=== PATIENT | female | born 1955 | race Caucasian/White ===

== ENCOUNTER 2019-09-15 15:06 | Inpatient (IN) | payer MEDICARE ==
[2019-09-15] MEDS ORDERED: NS 0.9% 1000 ML** 2,000 ML IV ONE ×2 (15:18→16:50)
--- NOTE | 2019-09-15 15:20 | ED ---
Altered Mental Status - HPI Summary HPI Summary: The patient is a 64 y/o F arriving by ambulance to [facility] from home with a chief complaint of decreased responsiveness with altered mental status. EMS reports that the patients neighbor found her sitting on the toilet covered in feces. When asked, the patient states she had been sitting there for 30 minutes, but her skin is cool to touch. She denies any headache or abdominal pain. She is minimally responsive in the ED. PMHx: hypothyroidism, sleep apnea, asthma. Unknown social history. Medications reviewed. Allergies noted. History is limited as patient has altered mental status. Information obtained from EMS and medical records. - History Of Current Complaint Stated Complaint: UNRESPONSIVE Time Seen by Provider: 09/15/19 15:12 Hx Obtained From: EMS, Medical Records Hx From Patient Unobtainable Due To: Altered Mental Status - Level 5 Caveat Onset/Duration: Unknown, Still Present Character: Responsiveness Aggravating Factor(s): Unknown Alleviating Factor(s): Unknown - Allergies/Home Medications Allergies/Adverse Reactions: Allergies Allergy/AdvReac Type Severity Reaction Status Date / Time NSAIDS (Non-Steroidal Allergy Unknown Verified 09/15/19 16:55 Anti-Inflamma Reaction Details Home Medications: Home Medications Flu Vacc [id number](65Yr Up)/Pf [Fluzone High-Dose Syr] 180 mcg IM ONCE 09/15/19 [History Confirmed 09/15/19] Levalbuterol 1.25 mg/3 mL (NF) [Levalbuterol HCl] 3 ml INH TID 09/15/19 [ History Confirmed 09/15/19] Potassium Chlor TAB* [Klor Con ER TAB*] 20 meq PO DAILY 09/15/19 [History Confirmed 09/15/19] Solifenacin(NF) [Vesicare(NF)] 10 mg PO DAILY 09/15/19 [History Confirmed ] Warfarin TAB(*) [Coumadin TAB(*)] 1 mg PO DAILY 09/15/19 [History Confirmed 01/29] rOPINIRole TAB* [Requip*] 4 mg PO BEDTIME 09/15/19 [History Confirmed 09/15/19] PMH/Surg Hx/FS Hx/Imm Hx Endocrine/Hematology History: Denies: Hx Diabetes Cardiovascular History: Reports: Hx Hypertension Denies: Hx Hypercholesterolemia Respiratory History: Reports: Hx Asthma - Surgical History Surgical History: Unable to Obtain/Confirm - patient has altered mental status - Family History Known Family History: Positive: Unknown - Level 5 Caveat, patient has AMS - Social History Alcohol Amount: patient is unable to provide history as she has altered mental status Substance Use Comment - Amount & Last Used: patient is unable to provide history as she has altered mental status Smoking Status (MU): Unknown if Ever Smoked - patient is unable to provide history as she has altered mental status Review of Systems Negative: Abdominal Pain Positive: Other - cool to touch Neurological: Other - decreased responsiveness Negative: Headache All Other Systems Reviewed And Are Negative: No - Comments Additional Review of Systems Comments: Level 5 Caveat, patient is unable to provide history as she has altered mental status Physical Exam - Summary Physical Exam Summary: VITAL SIGNS: Reviewed. GENERAL: Patient is a well-developed and nourished female who is lying comfortable in the stretcher. Patient is not in any acute respiratory distress. She appears lethargic. HEAD AND FACE: No signs of trauma. No ecchymosis, hematomas or skull depressions. No sinus tenderness. EYES: PERRLA, EOMI x 2, No injected conjunctiva, no nystagmus. No photophobia. EARS: Hearing grossly intact. Ear canals and tympanic membranes are within normal limits. MOUTH: Dry oral mucosa. Oropharynx otherwise within normal limits. NECK: Supple, trachea is midline, no adenopathy, no JVD, no carotid bruit, no c- spine tenderness, neck with full ROM. No meningeal signs, no Kernig's or brudzinskis signs. CHEST: Symmetric, no tenderness at palpation. LUNGS: Clear to auscultation bilaterally. No wheezing or crackles. CVS: Regular rate and rhythm, S1 and S2 present, no murmurs or gallops appreciated. ABDOMEN: Soft, non-tender. No signs of distention. No rebound, no guarding, and no masses palpated. Bowel sounds are normal. EXTREMITIES: Mottling in the lower extremities. FROM in all major joints, no edema, no clubbing. NEURO: Alert but very confused. No acute neurological deficits. Speech is normal and follows commands. SKIN: Dry and warm. GCS: 11 (see scale). Triage Information Reviewed: Yes Vital Signs Reviewed: Yes - [place] Coma Scale Best Eye Response: 3 - To Speech Best Motor Response: 5 - Purposeful Movement Best Verbal Response: 3 - Inappropriate Words Coma Scale Total: 11 Procedures - Procedure Summary Procedure Summary: Central Line Placement Procedure note: Procedure Note: Central Venous Catheter Insertion- Right Internal Jugular Indication: Hypotension and sepsis [employer] Protocol: a timeout was performed and the correct patient and site were verified Consent: unable to obtain due to patients mental status The patient was placed in Trendelenburg. Patient and all elements of maximal sterile barrier technique (MSBT) were used. Anesthesia was obtained with local infiltration of 3 ml 1% lidocaine. Hand hygiene was performed prior to procedure. Chlorhexidine used to prep the skin and dried for 2 minutes prior to skin puncture. Traffic was limited during the procedure. Full barrier precautions utilized. Dynamic ultrasound guidance used and the right internal jugular vein was cannulated. A 7 [place] triple lumen catheter was placed using the Seldinger technique. All lines flushed and yari nonpulsatile dark venous blood appropriately. The line was secured with sutures. A biopatch and dressing was placed over the site. The patient tolerated the procedure well. A post-line CXR was reviewed demonstrating the tip of the catheter in the SVC. Post-Procedure Diagnosis: Hypotension and sepsis Complications: none Estimated Blood Loss: minimal - Sedation Patient Received Moderate/Deep Sedation with Procedure: No Diagnostics - Laboratory Result Diagrams: 09/17/19 05:40 09/17/19 05:40 Lab Statement: Any lab studies that have been ordered have been reviewed, and results considered in the medical decision making process. - Radiology Chest X-Ray Radiology Interpretation Completed By: Radiologist Summary of Radiographic Findings: Impression: Hypoventilated exam with basilar atelectasis. ED physician has reviewed this report. - CT Brain CT CT Interpretation Completed By: Radiologist Summary of CT Findings: Impression: No acute intracranial process evident. Negative unenhanced head CT. ED physician has reviewed this report. - EKG 1522 Cardiac Rate: NL - 91 BPM EKG Rhythm: Sinus Rhythm Summary of EKG Findings: EKG at 1522 reveals normal sinus rhythm at 91 BPM. Q wave in III and aVF. No ST elevations. ED physician has reviewed and interpreted this EKG. Re-Evaluation - Re-Evaluation First Eval Re-Evaluation Time: 17:00 Comment: Central line placement procedure (see note) Second Eval Re-Evaluation Time: 18:15 Comment: Patient intubated by Dr. Grider. I was at bedside. Altered Mental Statu Course/Dx - Course Assessment/Plan: This patient is a 64-year-old female who presents to the emergency room by ambulance with a chief complaint of having an unresponsive episode. In the ED course, the patient is very lethargic, and we are unable to obtain any history from the patient. Past medical history significant for depression, hypertension, hypothyroidism, COPD. Initially the patient was given 2 L of IV fluids and then the patient was placed on Zosyn. Test results without any significant abnormality except for WBCs of 23.6, absolute neutrophils of 20.9 and neutrophil bands are 21, so therefore I believe that the patient is septic. Therefore, I gave the patient another 2 L of IV fluids. Sodium of 131, potassium of 5.6, chloride of 94, BUN of 33, creatinine of 2.33, glucose of 128 , lactic acid of 4.6, total CK of 2597, troponin of 0.04, and TSH of 5.79. Urinalysis is contaminated, which could be the source of infection. Therefore, the patient will be treated with Zosyn as a broad-spectrum antibiotic. The patient will also be given cefepime. The patient became hypotensive. Therefore the patient was started on Levophed. I placed a central line without any complications. I discussed my physical exam with Dr. Grider, and he requests for the patient to be intubated. Dr. Grider accepted the patient for admission. Patient continues to be hypotensive; therefore, the patient was given vasopressin. Patient was intubated by Dr. Grider. - Diagnoses Differential Diagnosis/HQI/PQRI: Hypothermia, Hypoxia, Intracranial Bleed, Medication Reaction, Metabolic Disorder, Overdose, Sepsis, Seizure, TIA Provider Diagnoses: Unresponsive, Sepsis, Dehydration, Acute renal failure, Rhabdomyolysis, Hyperkalemia - Provider Notifications Discussed Care Of Patient With: Shravan Grider - hospitalist Time Discussed With Above Provider: 17:30 Instructed by Provider To: Other - I discussed the patient's case with Dr. Grider , and he accepts the patient for admission to the ICU. Discharge ED - Sign-Out/Discharge Documenting (check all that apply): Patient Departure - Patient accepted for admission to ICU by Dr. Grider. - Discharge Plan Condition: Stable Disposition: ADMITTED TO [facility] - Billing Disposition and Condition Condition: STABLE Disposition: Admitted to [facility] - Attestation Statements Document Initiated by Bryon: Yes Documenting Scribe: Cathi Salmon Provider For Whom Bryon is Documenting (Include Credential): Dr. Garry Huitron MD Scribe Attestation: Cathi Marquez scribed for Dr. Garry Huitron MD on 09/17/19 at 0738. Scribe Documentation Reviewed: Yes Provider Attestation: The documentation as recorded by the Cathi aguilar accurately reflects the service I personally performed and the decisions made by me, Dr. Garry Huitron MD Status of Scribe Document: Viewed
[2019-09-15 15:31] LABS: Hematocrit 38 % (35-47); Hemoglobin 12.1 g/dL (12.0-16.0); Mean Corpuscular HGB Conc 32 g/dL (31-36); Mean Corpuscular Hemoglobin 27 pg (27-31); Mean Corpuscular Volume 85 fL (80-97); Mean Platelet Volume 7.8 fL (7.4-10.4); Platelet Count 264 10^3/uL (150-450); Red Blood Count 4.51 10^6 /uL (3.70-4.87); Red Cell Distribution Width 18 % (10-15); White Blood Count 23.6 10^3/uL (3.5-10.8)
[2019-09-15 15:38] LABS: INR 2.47 (0.82-1.09)
[2019-09-15 15:49] LABS: Urine Appearance Clear; Urine Bilirubin Negative (Negative); Urine Blood 2+ (Negative); Urine Color Yellow; Urine Glucose Negative (Negative); Urine Ketones Negative (Negative); Urine Nitrite Negative (Negative); Urine Protein 2+(100 mg/dL) (Negative); Urine Specific Gravity 1.015 (1.010-1.030); Urine Urobilinogen Negative (Negative)
[2019-09-15 15:50] LABS: ALT 42 U/L (7-52); AST 77 U/L (13-39); Albumin 3.4 g/dL (3.2-5.2); Albumin/Globulin Ratio 0.8 (1-3); Alkaline Phosphatase 50 U/L (34-104); BUN/Creatinine Ratio 14.2 (8-20); Blood Urea Nitrogen 33 mg/dL (6-24); CO2 Carbon Dioxide 27 mmol/L (22-32); Calcium 9.6 mg/dL (8.6-10.3); Chloride 94 mmol/L (101-111); EGFR African American 25.3 (>60); EGFR Non-African American 20.9 (>60); Globulin 4.1 g/dL (2-4); Glucose 128 mg/dL (70-100); Sodium 131 mmol/L (135-145); Total Protein 7.5 g/dL (6.4-8.9)
[2019-09-15 15:52] LABS: Anion Gap 10 mmol/L (2-11); Potassium 5.6 mmol/L (3.5-5.0); Troponin I 0.04 ng/mL (<0.03); Urine Bacteria Absent (Absent); Urine Red Blood Cell Trace(0-2/hpf) (Absent); Urine Squamous Epithelial Cell Present (Absent); Urine White Blood Cell 3+(>20/hpf) (Absent)
[2019-09-15] MEDS ORDERED: Piperacillin/Tazobac ADVAN(*) 3.375 GM in NS 0.9% 100 ML* 100 ML IVPB ONE (15:58)
[2019-09-15 16:20] LABS: ABS Lymphocytes 0.8 10^3/ul (1.0-4.8); ABS Monocytes 1.8 10^3/ul (0-0.8); ABS Neutrophils 20.9 10^3/ul (1.5-7.7); Eosinophil % 0.1 %; Lymphocyte % 3.5 %; Microcytosis 1+; Polychromasia 1+
[2019-09-15 16:28] LABS: TSH (Thyroid Stimulating Horm) 5.79 mcIU/mL (0.34-5.60)
[2019-09-15 16:34] LABS: Creatine Kinase 2597 U/L (10-223)
[2019-09-15 16:49] LABS: Acetaminophen < 15 mcg/mL; Alcohol < 10 mg/dL (<10); Salicylate < 2.50 mg/dL (<30); Urine Benzodiazepine Screen None Detected (None Detect); Urine Opiates Screen None Detected (None Detect)
[2019-09-15] MEDS ORDERED: Norepinephrine 16MCG/ML IVPRE* 4,000 MCG/250 ML BAG IV ONE (17:09)
[2019-09-15] MEDS ORDERED: Norepinephrine 16MCG/ML IVPRE* 4,000 MCG/250 ML BAG IV SCH (18:00)
[2019-09-15] MEDS ORDERED: Vasopressin* 100 UNITS in D5W 250 ML BAG* 245 ML IV SCH (18:15)
[2019-09-15] MEDS ORDERED: Midazolam* 1 MG/ML 5 ML VIAL (5 MG) ONE ×2 (18:20→18:23)
[2019-09-15] MEDS ORDERED: Succinylcholine* 20 MG/ML 10 ML VIAL ONE (18:20)
[2019-09-15] MEDS ORDERED: Succinylcholine* 20 MG/ML 10 ML VIAL IV ONE (18:21)
[2019-09-15] MEDS ORDERED: Cefepime 2 GM in Dextrose(*) 2 GM/50 ML BAG IV ONE (18:21)
[2019-09-15] MEDS: Midazolam* 1 MG/ML 5 ML VIAL (5 MG) IV SLOW PU SCH ×2 (18:24→18:50)
[2019-09-15] MEDS ORDERED: Hydrocortisone INJ* 250 MG VIAL IV SCH (19:00)
[2019-09-15] MEDS ORDERED: Dexmedetomidine* 1,000 MCG in NS 0.9% 250 ML* 240 ML IV SCH (19:00)
[2019-09-15] MEDS: NS 0.9% 1000 ML** 1,000 ML IV SCH (19:57)
[2019-09-15] MEDS: Norepinephrine 16MCG/ML IVPRE* 4,000 MCG/250 ML BAG IV SCH (19:57)
[2019-09-15] MEDS ORDERED: Zosyn per Pharmacy* NOTE FOLLOW UP SCH (20:00)
[2019-09-15] MEDS ORDERED: Hydrocortisone INJ* 100 MG/2 ML VIAL (in pyxis) ONE (20:06)
[2019-09-15 20:09] LABS: Urine Benzodiazepine Screen Presumptive Positive (None Detect); Urine Opiates Screen None Detected (None Detect)
[2019-09-15] MEDS: Pantoprazole IV* 40 MG IV SCH (20:13)
[2019-09-15] MEDS: Enoxaparin(*) 40 MG/0.4 ML SYR SUBCUT SCH (20:14)
[2019-09-15] MEDS: Chlorhexidine MOUTHWASH 0.12%* 15 ML UDC TOPICAL SCH (20:14)
[2019-09-15 20:16] LABS: Troponin I 0.12 ng/mL (<0.03)
[2019-09-15] MEDS ORDERED: Levalbuterol HFA INHALER* 1 PUFF MDI INH PRN (21:00)
[2019-09-15] MEDS: ZOSYN 3.375 GM Q8H per EXTENDED INFUSION IVPB SCH ×2 (21:24)
--- NOTE | 2019-09-15 21:34 | HP ---
CC: Dr. Thierno Tijerina * ADMISSION HISTORY AND PHYSICAL: DATE OF ADMISSION: 09/15/19 CHIEF COMPLAINT: Unresponsiveness. HISTORY OF PRESENT ILLNESS: Ms. Ruiz is a 64-year-old woman with a history of asthma, who was found in her bathroom by a neighbor on the ground. Apparently at that time, she was talking and told her that she had been down for 30 minutes. The source of data now is from the ER records and the ambulance transport. She is unresponsive to questioning. PAST MEDICAL HISTORY: Includes hypothyroidism, sleep apnea, asthma, overactive bladder, and depression. PAST SURGICAL HISTORY: No surgical history is known. MEDICATIONS: On admission are: 1. Hydrochlorothiazide 12.5 mg p.o. daily. 2. Levalbuterol 3 mL inhaled t.i.d. p.r.n. 3. Levothyroxine 125 mcg p.o. q.a.m. 4. Lisinopril 20 mg p.o. daily. 5. Methenamine hippurate 1 g p.o. b.i.d. 6. Montelukast 10 mg p.o. daily. 7. Potassium chloride 20 mEq p.o. daily. 8. Pregabalin 300 mg p.o. 4 times a day. 9. Ropinirole 4 mg p.o. nightly. 10. VESIcare 10 mg p.o. daily 11. Venlafaxine 150 mg p.o. b.i.d. 12. Warfarin 1 mg p.o. daily. 13. Trazodone 150 mg p.o. nightly ALLERGIES: NSAIDs. FAMILY HISTORY: Unknown as the patient is unresponsive. SOCIAL HISTORY: She is . She has at least 1 son. Phone calls were made to both the phone numbers listed on the chart and there is no answer at home. No family accompanies her. The medication list was obtained from a pain clinic note from that is in the ED chart. Unknown if she smokes tobacco or drinks alcohol. REVIEW OF SYSTEMS: The patient is unable to participate. PHYSICAL EXAMINATION GENERAL: She is unconscious, elderly, overweight woman. She is breathing with snoring. She is unresponsive to sternal rub. VITAL SIGNS: Temperature is 36.4, pulse 93, respirations 15 to 26, blood pressure is 58/45 up to 81/38, O2 sat is 95%. HEENT: Head is normocephalic, atraumatic. Sclerae anicteric. Pupils are reactive. Oropharynx, there is no gag. There is mucus in the back of her throat. NECK: Trachea is midline. No adenopathy. LUNGS: Clear to auscultation and percussion bilaterally . HEART: Regular rate and rhythm without murmurs or gallops. ABDOMEN: Soft, obese, and possible tenderness in the lower abdomen. EXTREMITIES: No peripheral edema. She has mottling in her knees. NEUROLOGIC: There is no focal deficits. She is flaccid. DIAGNOSTIC STUDIES/LAB DATA: Sodium 131, potassium 5.6, chloride 94, bicarb 27 , BUN 36, creatinine 2.33, glucose 128, lactic acid 4.6, CK 2597, albumin 3.4, AST 77, ALT 42, ammonia is 41. TSH 5.79. INR 2.47. Arterial blood gas: pH of 7.30, pCO2 of 57, pO2 of 94. Troponin is 0.04. White count 23.6, hemoglobin 12.1, hematocrit 38%, platelets are 264. Urinalysis shows 2+ protein , 2+ blood, trace leukocyte esterase, white cells 3+. Serum toxicology: Negative phosphate, negative acetaminophen, negative alcohol. Urine drug screen is negative. Chest x-ray shows poor inspiration. EKG shows normal sinus rhythm, left anterior fascicular block, no ischemia. Head CT is negative for infarct or bleed. ASSESSMENT AND PLAN: A 64-year-old woman presenting with unresponsiveness and hypotension. 1. We will treat her for sepsis. She has the septic shock definition with white count, altered mental status, and hypotension. She has received 30 mL/kg infusion and we will continue her on normal saline. She has been started on empiric Zosyn and cefepime. The patient has been initiated on norepinephrine drip in the ER. This was titrated up to 20 mcg/kg/minute. Her blood pressure came up to 115 systolic and then dropped to 58 systolic again. After she will be on 20 mcg of Levophed, we will start her on vasopressin. I discussed the case with Dr. Joaquin. Because of the limited history available, we will give her stress dose steroids of hydrocortisone 100 mg IV q.6. Source of sepsis could include UTI or abdominal process. Dr. Joaquin will assume the care of the patient in the morning. 2. The patient has rhabdomyolysis and this will be treated with infusion of normal saline and following the kidney function. It appears that she was down on the ground for extended period of time causing muscle injury. 3. Unresponsiveness could be related to overdose. She does not appear to have any alcohol or opioids or benzos, but she is also on trazodone and Lyrica, which could cause sedation if she had overdosed. The supportive care is as indicated for this. We will try to contact the family again tomorrow. 4. The patient is anticoagulated with warfarin. She will have the warfarin held and we will ask the family about indication for warfarin. PROCEDURE NOTE: The patient was found to be breathing in a snoring manner and not protecting her airway upon examination. The patient was electively intubated to protect her airway. She was given 5 mg of Versed and 120 mg of succinylcholine for rapid sequence induction. A 7.5 tube was passed into her airway with GlideScope. The capnography showed good placement and she is ventilating well on the ventilator. A postintubation chest x-ray showed the tube near the right mainstem bronchus. The tube was withdrawn 2 cm and repeat chest x-ray shows it in good position. The patient will be admitted on ventilator in the ICU and placed on the APRV mode with a tidal volume of 450. Repeat blood gas will be completed in 2 hours. I spent 1.5 hours with the patient today, more than 50 minutes of which was in the critical care mode titrating pressors, in addition to the intubation, and assessing chest x-ray etc. [id number]/[facility] #: [id number] [facility]
[2019-09-16] MEDS: Norepinephrine 16MCG/ML IVPRE* 4,000 MCG/250 ML BAG IV SCH ×3 (00:14→19:26)
[2019-09-16] MEDS: Chlorhexidine MOUTHWASH 0.12%* 15 ML UDC TOPICAL SCH ×6 (00:14→20:25)
[2019-09-16] MEDS: Hydrocortisone INJ* 100 MG VIAL IV SCH (00:15)
[2019-09-16] MEDS ORDERED: fentaNYL* 50 MCG/ML 2 ML VIAL (100 MCG VIAL) IV SLOW PU PRN (00:36)
[2019-09-16] MEDS ORDERED: fentaNYL* 50 MCG/ML 2 ML VIAL (100 MCG VIAL) ONE (00:41)
[2019-09-16] MEDS: NS 0.9% 1000 ML** 1,000 ML IV SCH ×3 (02:54→19:26)
[2019-09-16] MEDS: Hydrocortisone INJ* 100 MG/2 ML VIAL (in pyxis) IV SCH ×4 (02:54→20:25)
[2019-09-16] MEDS: ZOSYN 3.375 GM Q8H per EXTENDED INFUSION IVPB SCH ×6 (05:04→20:18)
[2019-09-16] MEDS ORDERED: Cefepime 2 GM in Dextrose(*) 2 GM/50 ML BAG IV SCH (06:00)
[2019-09-16 06:25] LABS: Hematocrit 37 % (35-47); Hemoglobin 11.7 g/dL (12.0-16.0); Mean Corpuscular HGB Conc 32 g/dL (31-36); Mean Corpuscular Hemoglobin 27 pg (27-31); Mean Corpuscular Volume 84 fL (80-97); Mean Platelet Volume 8.2 fL (7.4-10.4); Platelet Count 243 10^3/uL (150-450); Red Blood Count 4.41 10^6 /uL (3.70-4.87); Red Cell Distribution Width 18 % (10-15); White Blood Count 25.3 10^3/uL (3.5-10.8)
[2019-09-16 06:27] LABS: ABS Lymphocytes 0.6 10^3/ul (1.0-4.8); ABS Monocytes 1.4 10^3/ul (0-0.8); ABS Neutrophils 23.2 10^3/ul (1.5-7.7); Lymphocyte % 2.5 %
[2019-09-16 06:38] LABS: ALT 54 U/L (7-52); AST 123 U/L (13-39); Albumin 2.8 g/dL (3.2-5.2); Albumin/Globulin Ratio 0.9 (1-3); Alkaline Phosphatase 45 U/L (34-104); Anion Gap 5 mmol/L (2-11); BUN/Creatinine Ratio 20.6 (8-20); Blood Urea Nitrogen 26 mg/dL (6-24); CO2 Carbon Dioxide 26 mmol/L (22-32); Chloride 102 mmol/L (101-111); EGFR African American 51.4 (>60); EGFR Non-African American 42.5 (>60); Globulin 3.2 g/dL (2-4); Glucose 137 mg/dL (70-100); Potassium 4.7 mmol/L (3.5-5.0); Sodium 133 mmol/L (135-145)
[2019-09-16 06:46] LABS: INR 3.94 (0.82-1.09)
[2019-09-16] MEDS: Dexmedetomidine* 1,000 MCG in NS 0.9% 250 ML* 240 ML IV SCH ×2 (06:54→11:28)
[2019-09-16 06:55] LABS: Creatine Kinase 3047 U/L (10-223)
[2019-09-16] MEDS ORDERED: Levothyroxine INJ* 100 MCG in D5W 250 ML BAG* 250 ML IV SCH (08:00)
[2019-09-16] MEDS: Levothyroxine INJ* 100 MCG/5 ML VIAL IV SCH (08:25)
--- NOTE | 2019-09-16 11:15 | PN ---
Date of Service: 09/16/19 - HD 2 Critical Care Services: 64 yo F with PMH including early onset dementia with short term memory loss, hypothyroidism, MORRO and asthma. She was found by her neighbor sitting on the toilet covered in feces, disoriented. EMS was called. Per report found with an old bottle of clonazepam which was missing 10 tabs. Unclear if she had ingested any. On arrival to ED she was minimally responsive and was intubated for airway protection. On exam, no apparent trauma. Lungs clear to auscultation, heart regular. Extremities with mottling. GCS noted to be 11. WBC 23.6, Na 131, K 5.6, Cr 2.33. CXR with bibasilar atelectasis and hypoventilation. CT brain NAD. Admitted to ICU for further care. 09/16: No overnight events. Alert and writing questions on white board. Passed SBT. Vital Signs: Temp Pulse Resp BP SpO2 FiO2 99.0 F 66 16 139/75 96 50 09/16/19 11:00 09/16/19 11:00 09/16/19 11:00 09/16/19 10:46 09/16/19 11:00 09/16 08:00 Physical Exam: Gen:resting comfortably HEENT: ETT in place Lungs: CTAB Cardiac: RRR Abdomen: soft, NTND Extremities: moving equally Neuro: alert, nods to questions. Fluid Balance (Past 24 Hours): I= O= Net Intake & Output 09/14/19 09/15/19 09/16/19 09/17/19 06:59 06:59 06:59 06:59 Intake Total 2007.5 0 Output Total 2860 240 Balance -852.5 -240 Weight 242 lb 8.136 oz Intake: IV Fluids 1283.5 ABX - ZOSYN 45.5 NS (0.9%) 1238 Medicated IV 724 CC - Dexmedetomidine/ 196 Precedex CC - Norepinephrine/ 528 Levophed Oral 0 Output: Ca 2860 240 Labs: Laboratory Results - last 24 hr 09/15/19 09/15/19 09/15/19 15:17 15:17 15:17 WBC 23.6 H RBC 4.51 Hgb 12.1 Hct 38 MCV 85 MCH 27 MCHC 32 RDW 18 H Plt Count 264 MPV 7.8 Neut % (Auto) 88.4 Lymph % (Auto) 3.5 [place] % (Auto) 7.8 Eos % (Auto) 0.1 Baso % (Auto) 0.2 Absolute Neuts (auto) 20.9 H Absolute Lymphs (auto) 0.8 L Absolute Monos (auto) 1.8 H Absolute Eos (auto) 0.0 Absolute Basos (auto) 0.0 Absolute Nucleated RBC 0.0 Immature Gran % 21.0 H Neutrophils % 71.0 Band Neutrophils % 21.0 H Lymphocytes % 2.0 Monocytes % 6.0 Nucleated RBC % 0.0 Normal RBC Morphology Not Reportable Polychromasia 1+ Microcytosis 1+ Macrocytosis 1+ INR (Anticoag Therapy) Patient Temperature ABG pH ABG pH (Temp Correct) ABG pCO2 ABG pCO2 (Temp Corrct ABG pO2 ABG pO2 (Temp Correct ABG HCO3 ABG O2 Saturation ABG Base Excess Respiration Rate O2 Delivery Device Ventilator Type Vent Mode FiO2 Inspiratory Time PEEP Pressure Support Pressure Control EPAP IPAP BiPAP Sodium 131 L Potassium 5.6 H Chloride 94 L Carbon Dioxide 27 Anion Gap 10 BUN 33 H Creatinine 2.33 H Est GFR ( Amer) 25.3 Est GFR (Non-Af Amer) 20.9 BUN/Creatinine Ratio 14.2 Glucose 128 H Lactic Acid Calcium 9.6 Magnesium 2.0 Total Bilirubin 0.30 AST 77 H ALT 42 Alkaline Phosphatase 50 Ammonia Total Creatine Kinase 2597 H Troponin I 0.04 H* Total Protein 7.5 Albumin 3.4 Globulin 4.1 H Albumin/Globulin Ratio 0.8 L TSH 5.79 H Urine Color Yellow Urine Appearance Clear Urine pH 6.0 Ur Specific [place] 1.015 Urine Protein 2+(100 mg/dl) A Urine Ketones Negative Urine Blood 2+ A Urine Nitrate Negative Urine Bilirubin Negative Urine Urobilinogen Negative Ur Leukocyte Esterase Trace A Urine WBC (Auto) 3+(>20/hpf) A Urine RBC (Auto) Trace(0-2/hpf) Ur Squamous Epith Cells Present A Urine Bacteria Absent Urine Glucose Negative Urine Ascorbic Acid * A Salicylates < 2.50 Urine Opiates Screen Acetaminophen < 15 Ur Barbiturates Screen Ur Phencyclidine Scrn Ur Amphetamines Screen U Benzodiazepines Scrn Urine Cocaine Screen U Cannabinoids Screen Serum Alcohol < 10 09/15/19 09/15/19 09/15/19 15:17 15:17 15:17 WBC RBC Hgb Hct MCV MCH MCHC RDW Plt Count MPV Neut % (Auto) Lymph % (Auto) [place] % (Auto) Eos % (Auto) Baso % (Auto) Absolute Neuts (auto) Absolute Lymphs (auto) Absolute Monos (auto) Absolute Eos (auto) Absolute Basos (auto) Absolute Nucleated RBC Immature Gran % Neutrophils % Band Neutrophils % Lymphocytes % Monocytes % Nucleated RBC % Normal RBC Morphology Polychromasia Microcytosis Macrocytosis INR (Anticoag Therapy) 2.47 H Patient Temperature ABG pH ABG pH (Temp Correct) ABG pCO2 ABG pCO2 (Temp Corrct ABG pO2 ABG pO2 (Temp Correct ABG HCO3 ABG O2 Saturation ABG Base Excess Respiration Rate O2 Delivery Device Ventilator Type Vent Mode FiO2 Inspiratory Time PEEP Pressure Support Pressure Control EPAP IPAP BiPAP Sodium Potassium Chloride Carbon Dioxide Anion Gap BUN Creatinine Est GFR ( Amer) Est GFR (Non-Af Amer) BUN/Creatinine Ratio Glucose Lactic Acid 4.6 H* Calcium Magnesium Total Bilirubin AST ALT Alkaline Phosphatase Ammonia 41 Total Creatine Kinase Troponin I Total Protein Albumin Globulin Albumin/Globulin Ratio TSH Urine Color Urine Appearance Urine pH Ur Specific [place] Urine Protein Urine Ketones Urine Blood Urine Nitrate Urine Bilirubin Urine Urobilinogen Ur Leukocyte Esterase Urine WBC (Auto) Urine RBC (Auto) Ur Squamous Epith Cells Urine Bacteria Urine Glucose Urine Ascorbic Acid Salicylates Urine Opiates Screen Acetaminophen Ur Barbiturates Screen Ur Phencyclidine Scrn Ur Amphetamines Screen U Benzodiazepines Scrn Urine Cocaine Screen U Cannabinoids Screen Serum Alcohol 09/15/19 09/15/19 09/15/19 15:17 15:25 19:30 WBC RBC Hgb Hct MCV MCH MCHC RDW Plt Count MPV Neut % (Auto) Lymph % (Auto) [place] % (Auto) Eos % (Auto) Baso % (Auto) Absolute Neuts (auto) Absolute Lymphs (auto) Absolute Monos (auto) Absolute Eos (auto) Absolute Basos (auto) Absolute Nucleated RBC Immature Gran % Neutrophils % Band Neutrophils % Lymphocytes % Monocytes % Nucleated RBC % Normal RBC Morphology Polychromasia Microcytosis Macrocytosis INR (Anticoag Therapy) Patient Temperature ABG pH 7.30 L ABG pH (Temp Correct) ABG pCO2 57 H ABG pCO2 (Temp Corrct ABG pO2 94 ABG pO2 (Temp Correct ABG HCO3 25.2 ABG O2 Saturation 97.7 ABG Base Excess 0.4 Respiration Rate O2 Delivery Device Ventilator Type Vent Mode FiO2 Inspiratory Time PEEP Pressure Support Pressure Control EPAP IPAP BiPAP Sodium Potassium Chloride Carbon Dioxide Anion Gap BUN Creatinine Est GFR ( Amer) Est GFR (Non-Af Amer) BUN/Creatinine Ratio Glucose Lactic Acid Calcium Magnesium Total Bilirubin AST ALT Alkaline Phosphatase Ammonia Total Creatine Kinase Troponin I Total Protein Albumin Globulin Albumin/Globulin Ratio TSH Urine Color Urine Appearance Urine pH Ur Specific [place] Urine Protein Urine Ketones Urine Blood Urine Nitrate Urine Bilirubin Urine Urobilinogen Ur Leukocyte Esterase Urine WBC (Auto) Urine RBC (Auto) Ur Squamous Epith Cells Urine Bacteria Urine Glucose Urine Ascorbic Acid Salicylates Urine Opiates Screen None detected None detected Acetaminophen Ur Barbiturates Screen None detected None detected Ur Phencyclidine Scrn None detected None detected Ur Amphetamines Screen None detected None detected U Benzodiazepines Scrn None detected Presumptive positive A Urine Cocaine Screen None detected None detected U Cannabinoids Screen None detected None detected Serum Alcohol 09/15/19 09/15/19 09/15/19 19:35 19:35 20:07 WBC RBC Hgb Hct MCV MCH MCHC RDW Plt Count MPV Neut % (Auto) Lymph % (Auto) [place] % (Auto) Eos % (Auto) Baso % (Auto) Absolute Neuts (auto) Absolute Lymphs (auto) Absolute Monos (auto) Absolute Eos (auto) Absolute Basos (auto) Absolute Nucleated RBC Immature Gran % Neutrophils % Band Neutrophils % Lymphocytes % Monocytes % Nucleated RBC % Normal RBC Morphology Polychromasia Microcytosis Macrocytosis INR (Anticoag Therapy) Patient Temperature Not Reportable ABG pH 7.29 L ABG pH (Temp Correct) Not Reportable ABG pCO2 54 H ABG pCO2 (Temp Corrct Not Reportable ABG pO2 75 L ABG pO2 (Temp Correct Not Reportable ABG HCO3 23.7 ABG O2 Saturation 95.5 ABG Base Excess -1.4 Respiration Rate 14 O2 Delivery Device vent Ventilator Type 450 Vent Mode cmv FiO2 40 Inspiratory Time Not Reportable PEEP 5 Pressure Support Not Reportable Pressure Control Not Reportable EPAP Not Reportable IPAP Not Reportable BiPAP Not Reportable Sodium Potassium Chloride Carbon Dioxide Anion Gap BUN Creatinine Est GFR ( Amer) Est GFR (Non-Af Amer) BUN/Creatinine Ratio Glucose Lactic Acid 1.8 Calcium Magnesium Total Bilirubin AST ALT Alkaline Phosphatase Ammonia Total Creatine Kinase Troponin I 0.12 H* Total Protein Albumin Globulin Albumin/Globulin Ratio TSH Urine Color Urine Appearance Urine pH Ur Specific [place] Urine Protein Urine Ketones Urine Blood Urine Nitrate Urine Bilirubin Urine Urobilinogen Ur Leukocyte Esterase Urine WBC (Auto) Urine RBC (Auto) Ur Squamous Epith Cells Urine Bacteria Urine Glucose Urine Ascorbic Acid Salicylates Urine Opiates Screen Acetaminophen Ur Barbiturates Screen Ur Phencyclidine Scrn Ur Amphetamines Screen U Benzodiazepines Scrn Urine Cocaine Screen U Cannabinoids Screen Serum Alcohol 09/16/19 09/16/19 09/16/19 05:30 05:30 06:25 WBC 25.3 H RBC 4.41 Hgb 11.7 L Hct 37 MCV 84 MCH 27 MCHC 32 RDW 18 H Plt Count 243 MPV 8.2 Neut % (Auto) 91.8 Lymph % (Auto) 2.5 [place] % (Auto) 5.7 Eos % (Auto) 0.0 Baso % (Auto) 0.0 Absolute Neuts (auto) 23.2 H Absolute Lymphs (auto) 0.6 L Absolute Monos (auto) 1.4 H Absolute Eos (auto) 0.0 Absolute Basos (auto) 0.0 Absolute Nucleated RBC 0.0 Immature Gran % Neutrophils % Band Neutrophils % Lymphocytes % Monocytes % Nucleated RBC % 0.0 Normal RBC Morphology Polychromasia Microcytosis Macrocytosis INR (Anticoag Therapy) 3.94 H Patient Temperature ABG pH ABG pH (Temp Correct) ABG pCO2 ABG pCO2 (Temp Corrct ABG pO2 ABG pO2 (Temp Correct ABG HCO3 ABG O2 Saturation ABG Base Excess Respiration Rate O2 Delivery Device Ventilator Type Vent Mode FiO2 Inspiratory Time PEEP Pressure Support Pressure Control EPAP IPAP BiPAP Sodium 133 L Potassium 4.7 Chloride 102 Carbon Dioxide 26 Anion Gap 5 BUN 26 H Creatinine 1.26 H Est GFR ( Amer) 51.4 Est GFR (Non-Af Amer) 42.5 BUN/Creatinine Ratio 20.6 H Glucose 137 H Lactic Acid Calcium 8.0 L Magnesium Total Bilirubin 0.30 AST 123 H ALT 54 H Alkaline Phosphatase 45 Ammonia Total Creatine Kinase 3047 H Troponin I 0.20 H* Total Protein 6.0 L Albumin 2.8 L Globulin 3.2 Albumin/Globulin Ratio 0.9 L TSH Urine Color Urine Appearance Urine pH Ur Specific [place] Urine Protein Urine Ketones Urine Blood Urine Nitrate Urine Bilirubin Urine Urobilinogen Ur Leukocyte Esterase Urine WBC (Auto) Urine RBC (Auto) Ur Squamous Epith Cells Urine Bacteria Urine Glucose Urine Ascorbic Acid Salicylates Urine Opiates Screen Acetaminophen Ur Barbiturates Screen Ur Phencyclidine Scrn Ur Amphetamines Screen U Benzodiazepines Scrn Urine Cocaine Screen U Cannabinoids Screen Serum Alcohol Studies: 09/15 CXR - Hypoventilation. Bibasilar infiltrates. CT brain - NAD Nutrition: NPO for possible extubation Impression: 64 yo F with early onset demential and short term memory loss was found confused and lethargic at home by neighbor on 09/15. Per report, she was found with an old bottle of clonazepam which was missing 10 tabs. Intubated in ED for airway protection. Now mental status improved to baseline. Plan: Hospital Diagnoses: #1: Septic shock #2: Acute encephalopathy #3: Acute cystitis #4: Rhabdomyolysis Cardiovascular: (1) Septic shock; (2) NSTEMI, type 2/troponin leak; (3) CAD; (4 ) Chronic essential HTN -- HR 61-107 -- SBP 58-156 -- Telemetry -- TTE ordered -- Cardiac markers CK 3047 from 2597, hydrate, follow trend troponin 0.20 from 0.12 from 0.04. follow trend, -- Vasopressors Levophed @ 5 mcg/min, titrate to MAP > 65 -- Eliquis Home meds: nitroglycerine patch PRN, Lasix, Eliquis Pulmonary: (1) Intubated for airway protection -- RR 11-30 -- sats 90-100 -- vent: passed SBT, extubate -- CXR: bibasilar atelectasis Home meds: None Gastrointestinal: (1) Transaminitis; (2) GERD; (3) Hx of protein calorie malnutrition -- LFTs Tbili 0.3 ALK 45 AST 123 from 77, follow trend ALT 54 from 42, follow trend -- Ammonia 41 -- diet: NPO for possible extubation -- bowel regimen: Mag Ox, Miralax -- ulcer prophylaxis: Protonix -- PRN Zofran Home meds: Mag Ox Endocrine: (1) Hypothyroid -- monitor BGs -- TSH 5.79, elevated -- start synthroid Home meds: None Renal: (1) Prerenal azotemia vs CATY; (2) Hyponatremia; (3) Rhabdomyolysis -- UOP: 238 ml/hr -- Cr 1.26 from 2.33 -- Lytes Na 133 from 131, follow trend K 4.7 Ca 8.0, replace Mag 2.0 on 09/15 Phos ordered -- CK 3047 from 2597, hydrate, follow trend -- IVF: HL Home meds: Lasix Infectious disease: (1) Sepsis; (2) Acute cystitis -- Tmax 101.7 -- WBC 25.3 from 23.6 -- Micro 09/15 MRSA negative sputum in progress UA positive urine in process blood in process -- ABX Levaquin Home meds: None Neurologic: (1) Acute encephalopathy; (2) Restless leg syndrome; (3) Chronic back pain; (4) Chronic anxiety and depression; (5) hx of tardive dyskinesia; (6 ) hx of suicide attempt; (7) hx of psychosis; (8) hx of poor compliance -- Urine tox screen initially negative. Second screen done 4 hrs later positive for benzodiazepines but received Versed for intubation -- Alcohol, tylenol and salicylates negative -- PRN Tylenol -- Gabapentin -- Zoloft -- PRN Morphine for pain control Home meds: Zoloft, Tetrabenzine, tylenol Hematological: (1) long term care pharmacist anticoagulation; (2) hx of DVT; (3) Hx of anemia -- Hgb 11.7 from 12.1 -- Plt 243 from 263 -- Coags INR 3.94 from 2.47 -- DVT prophylaxis: Eliquis Home meds: Eliquis Metabolic: (1) Lactic acidosis, resolved -- Lactic acid 1.8 from 4.6 Home meds: None Other: No acute issues -- Natural balance eye drops -- Saline nasal spray Home meds: Saline nasal spray, artifical tears Deep vein thrombosis prophylaxis: Eliquis Dietary: Protonix Condition: Critical Prognosis: guarded Code status: Full Disposition: continue ICU care Cumulative time spent in the care of this patient (excluding any procedure time) : at least 40 minutes. Patient care included clinical interview (with patient and/or family), bedside exam of the patient, review of labs, x-rays, and other ancillary data, coordination of (respiratory, nursing care, review of patient's records, discussion regarding patients management with involved consultants, primary physician, pharmacists, and other healthcare personnel (dietary, case management , physical/occupational therapy etc.) Critical Care Time: 40 minutes
[2019-09-16] MEDS ORDERED: Calcium Gluconate INJ* 1 GM in NS 0.9% 50 ML* 50 ML IVPB ONE (11:28)
[2019-09-16] MEDS ORDERED: Ropinirole TAB* 0.5 MG TAB PO ONE (12:14)
[2019-09-16] MEDS ORDERED: Perflutren Lipid Microsphere* 3 ML VIAL ONE (14:35)
[2019-09-16 14:45] LABS: Troponin I 0.08 ng/mL (<0.03)
--- NOTE | 2019-09-16 17:33 | ECHO ---
*[facility]* [place] [address] Fax #: [phone] Transthoracic Echocardiogram Patient: Renetta Ruiz : 1955 Study Date: 09/16/2019 Age: 64 Gender: F HR: 66 bpm Height: 67 in /170.2 cm BSA: 2.19 m^2 Weight: 241.5 lb /109.8 kg BMI: 37.9 kg/m^2 *[employer] Operator: * Orin Tuttle RDCS RN *Referring Physician: * Nathalia Joaquin *Reading Physician: * Roger Galdamez MD Indications: Shock - Unspecified. Elevated troponin levels. History: Asthma. Hypothyroidism. Sleep apnea. Risk factors: Obese. Conclusions Summary: - Left ventricle: The cavity size is normal. Wall thickness is mildly increased. Systolic function is normal. The estimated ejection fraction is 60-65%. Wall motion is normal; there are no regional wall motion abnormalities. - Right ventricle: The cavity size is normal. Systolic function is normal. - Left atrium: The atrium is normal in size. - Pulmonary arteries: Systolic pressure cannot be accurately estimated. - No functionally significant valvular abnormalities noted. Recommendations: None prior for comparison at time of interpretation Study data: Transthoracic echocardiogram. Procedure: Transthoracic echocardiography was performed. Image quality was adequate. The study was technically limited due to body habitus. Intravenous Definity 5 ml was administered to enhance imaging. Complete 2D, spectral Doppler, and color flow Doppler. Location: ICU Patient status: Inpatient. Patient room number: ICU 3. Rhythm: Normal sinus rhythm. Findings Left ventricle: The cavity size is normal. Wall thickness is mildly increased. Systolic function is normal. The estimated ejection fraction is 60-65%. Wall motion is normal; there are no regional wall motion abnormalities. There is no consistent Doppler evidence of clinically significant diastolic dysfunction. Right ventricle: The cavity size is normal. Systolic function is normal. Left atrium: The atrium is normal in size. Right atrium: The atrium is normal in size. Mitral valve: The leaflets are mildly thickened. There is no evidence of stenosis. There is trace regurgitation. Aortic valve: The annulus is mildly calcified. The valve is trileaflet. The leaflets are mildly thickened. There is no evidence of stenosis. There is no significant regurgitation. Tricuspid valve: Not well visualized. There is no evidence of stenosis. There is trace regurgitation. Pulmonic valve: The leaflets are normal thickness. There is no evidence of stenosis. There is trace regurgitation. Aorta: Aortic root: The aortic root is appears normal. Ascending aorta: The ascending aorta is not well visualized. Aortic arch: The aortic arch is not dilated. Pericardium: There is no significant pericardial effusion. Pulmonary arteries: Not well visualized. Systolic pressure cannot be accurately estimated. Systemic veins: Inferior vena cava: Not visualized. Measurements Left ventricle Value Ref Right atrium Value Ref JAROCHO, LAX 4.4 cm 3.8 - 5.2 ML dim, ES, A4C 3.5 cm 2.6 - 4.4 ESD, LAX 3.0 cm 2.2 - 3.5 SI dim, ES, A4C 5.2 cm 3.4 - 5.3 FS, LAX 32 % 27 - 45 PW, ED (H) 1.1 cm 0.6 - 0.9 Aortic valve Value Ref IVS/PW, ED 1.03 Arsh diam, ED 2.0 cm --------- E', lat arsh, TDI (L) 8.7 cm/sec >=10.0 Arsh diam/bsa, ED 0.9 cm/m^2 -- ------- E/e', lat arsh, 10 Peak v, S 1.72 m/sec ----- ---- TDI VTI, S 36.0 cm --------- E', med arsh, TDI 13.5 cm/sec >=7.0 Mean grad, S 6.0 mm Hg -- ------- E/e', med arsh, 7 Peak grad, S 12.0 mm Hg ----- ---- TDI LVOT/AV, VTI ratio 0.46 --------- E', avg, TDI 11.1 cm/sec E/e', avg, TDI 8 <=14 Mitral valve Value Re f Peak E 0.91 m/sec --------- LVOT Value Ref Peak A 0.9 m/sec --------- Peak erik, S 0.8 m/sec Decel time 169 ms --------- VTI, S 16.4 cm Peak grad, D 3.3 mm Hg --------- Mean grad, S 2 mm Hg Peak E/A ratio 1 --------- Ventricular septum Value Ref Pulmonic valve Value Ref IVS, ED (H) 1.1 cm 0.6 - 0.9 Peak v, S 0.79 m/sec --------- Peak grad, S 2.0 mm Hg --------- Right ventricle Value Ref JAROCHO, LAX 2.7 cm Aortic root Value Ref JAROCHO minor ax, 3.1 cm 1.9 - 3.5 Root diam 3.2 cm <4.3 A4C mid Aortic arch Value Ref Left atrium Value Ref Arch diam 2.7 cm --------- AP dim, ES 3.00 cm 2.70 - 3.80 Decending aorta Value Ref ML dim, A4C 4.2 cm Enriqueta peak erik 0.7 m/sec --------- SI dim, A4C 5.6 cm Vol/bsa, ES, 1-p 36 ml/m^2 11 - 40 A4C Vol/bsa, ES, A/L 32 ml/m^2 16 - 34 Legend: (L) and (H) larisa values outside specified reference range. Prepared and electronically signed by Roger Galdamez MD 09/16/2019 17:32
[2019-09-16] MEDS: Enoxaparin(*) 40 MG/0.4 ML SYR SUBCUT SCH (18:40)
[2019-09-16] MEDS: Pantoprazole IV* 40 MG IV SCH (20:24)
--- NOTE | 2019-09-16 21:56 | EEG ---
ELECTROENCEPHALOGRAPHY: DATE OF STUDY: - ROOM #ICU-03 DATE OF DICTATION: 09/16/19 PATIENT OF: Dr. Grider. CLINICAL PROBLEM: This is a 64-year-old woman who was sent for an unwitnessed unresponsiveness, but was acting odd earlier that day. This study was done to evaluate for possible seizures. MEDICATIONS: Include: 1. Synthroid. 2. Hydrocodone. 3. Precedex. 4. Zosyn. 5. Lovenox. 6. Protonix. 7. Fentanyl. 8. Levophed. REPORT: With the patient awake, background cerebral activity consists of moderate amplitude posterior dominant 7 to 8 Hz with some admixed theta activity. Of note, the patient at times is sleeping or at least has eyes closed during recording and is on a respirator. No focal abnormalities, major asymmetries of background, or epileptiform potentials are noted. CLINICAL IMPRESSION: This awake and briefly asleep EEG shows no epileptiform potentials or other major abnormalities. [id number]/[id number] #: [id number] [facility]
[2019-09-16] MEDS ORDERED: Morphine INJ* 2 MG/ML 1 ML SYRINGE (TWO MG - NEW SYRINGE VERSION) IV PRN (22:42)
[2019-09-16] MEDS ORDERED: Morphine INJ* 2 MG/ML 1 ML SYRINGE (TWO MG - NEW SYRINGE VERSION) ONE (22:44)
[2019-09-17] MEDS: Chlorhexidine MOUTHWASH 0.12%* 15 ML UDC TOPICAL SCH ×3 (00:02→09:43)
[2019-09-17] MEDS ORDERED: Morphine INJ* 2 MG/ML 1 ML SYRINGE (TWO MG - NEW SYRINGE VERSION) ONE (00:51)
[2019-09-17] MEDS: Morphine INJ* 2 MG/ML 1 ML SYRINGE (TWO MG - NEW SYRINGE VERSION) IV PRN ×4 (00:58→22:33)
[2019-09-17] MEDS: Hydrocortisone INJ* 100 MG/2 ML VIAL (in pyxis) IV SCH ×2 (02:23→07:43)
[2019-09-17] MEDS: NS 0.9% 1000 ML** 1,000 ML IV SCH ×4 (03:41→23:17)
[2019-09-17] MEDS: Levothyroxine INJ* 100 MCG/5 ML VIAL IV SCH (05:23)
[2019-09-17] MEDS: ZOSYN 3.375 GM Q8H per EXTENDED INFUSION IVPB SCH ×6 (05:23→22:34)
[2019-09-17 06:05] LABS: ABS Lymphocytes 0.8 10^3/ul (1.0-4.8); ABS Monocytes 0.8 10^3/ul (0-0.8); ABS Neutrophils 19.5 10^3/ul (1.5-7.7); Hematocrit 31 % (35-47); Hemoglobin 10.1 g/dL (12.0-16.0); Mean Corpuscular HGB Conc 32 g/dL (31-36); Mean Corpuscular Hemoglobin 27 pg (27-31); Mean Corpuscular Volume 83 fL (80-97); Mean Platelet Volume 8.2 fL (7.4-10.4); Platelet Count 196 10^3/uL (150-450); Red Blood Count 3.74 10^6 /uL (3.70-4.87); Red Cell Distribution Width 17 % (10-15); White Blood Count 21.2 10^3/uL (3.5-10.8)
[2019-09-17 06:13] LABS: INR 4.15 (0.82-1.09)
[2019-09-17 06:15] LABS: Albumin 2.5 g/dL (3.2-5.2); Albumin/Globulin Ratio 0.8 (1-3); BUN/Creatinine Ratio 29.7 (8-20); Calcium 7.7 mg/dL (8.6-10.3); EGFR Non-African American 78.5 (>60); Potassium 3.7 mmol/L (3.5-5.0); Total Bilirubin 0.3 mg/dL (0.2-1.0); Total Protein 5.5 g/dL (6.4-8.9)
--- NOTE | 2019-09-17 09:58 | PN ---
Date of Service: 09/17/19 - HD 3 Critical Care Services: 64 yo F with PMH including early onset dementia with short term memory loss, hypothyroidism, MORRO and asthma. She was found by her neighbor sitting on the toilet covered in feces, disoriented. EMS was called. Per report found with an old bottle of clonazepam which was missing 10 tabs. Unclear if she had ingested any, however initial tox screen negative for benzodiazepines. On arrival to ED she was minimally responsive and was intubated for airway protection. On exam, no apparent trauma. Lungs clear to auscultation, heart regular. Extremities with mottling. GCS noted to be 11. WBC 23.6, Na 131, K 5.6, Cr 2.33. CXR with bibasilar atelectasis and hypoventilation. CT brain NAD. Admitted to ICU for further care. 09/16: Alert and writing questions on white board. Passed SBT and extubated. Passed dysphagia screen and started on diet. Weaning off Levophed. 09/17: No overnight events. Off pressors. Vital Signs: Temp Pulse Resp BP SpO2 FiO2 98.8 F 73 16 144/79 95 95 09/17/19 09:00 09/17/19 09:00 09/17/19 09:00 09/17/19 09:00 09/17/19 09:00 09/17 04:00 Physical Exam: Gen: resting comfortably HEENT: intact Lungs: nonlabored Cardiac: RRR Abdomen: nondistended Extremities: moving equally Neuro: alert, oriented. conversant. Fluid Balance (Past 24 Hours): I= O= Net Intake & Output 09/15/19 09/16/19 09/17/19 09/18/19 06:59 06:59 06:59 06:59 Intake Total 2007.5 3925 Output Total 2860 1460 175 Balance -852.5 2465 -175 Weight 242 lb 8.136 oz 243 lb 11.156 oz Intake: IV Fluids 1283.5 3459 ABX - ZOSYN 45.5 205 NS (0.9%) 1238 3254 IVPB 45 ABX - ZOSYN 45 Medicated IV 724 381 CC - Dexmedetomidine/ 196 120 Precedex CC - Norepinephrine/ 528 261 Levophed Oral 40 Output: Ca 2860 1460 175 Labs: Laboratory Results - last 24 hr 09/16/19 09/17/19 09/17/19 05:30 05:40 05:40 WBC RBC Hgb Hct MCV MCH MCHC RDW Plt Count MPV Neut % (Auto) Lymph % (Auto) Ritchie % (Auto) Eos % (Auto) Baso % (Auto) Absolute Neuts (auto) Absolute Lymphs (auto) Absolute Monos (auto) Absolute Eos (auto) Absolute Basos (auto) Absolute Nucleated RBC Nucleated RBC % INR (Anticoag Therapy) 4.15 H Sodium 138 Potassium 3.7 Chloride 104 Carbon Dioxide 28 Anion Gap 6 BUN 22 Creatinine 0.74 Est GFR ( Amer) 95.0 Est GFR (Non-Af Amer) 78.5 BUN/Creatinine Ratio 29.7 H Glucose 106 H Calcium 7.7 L Total Bilirubin 0.30 AST 96 H ALT 44 Alkaline Phosphatase 38 Troponin I 0.08 H* Total Protein 5.5 L Albumin 2.5 L Globulin 3.0 Albumin/Globulin Ratio 0.8 L 09/17/19 05:40 WBC 21.2 H RBC 3.74 Hgb 10.1 L Hct 31 L MCV 83 MCH 27 MCHC 32 RDW 17 H Plt Count 196 MPV 8.2 Neut % (Auto) 92.0 Lymph % (Auto) 4.0 Ritchie % (Auto) 3.9 Eos % (Auto) 0.0 Baso % (Auto) 0.1 Absolute Neuts (auto) 19.5 H Absolute Lymphs (auto) 0.8 L Absolute Monos (auto) 0.8 Absolute Eos (auto) 0.0 Absolute Basos (auto) 0.0 Absolute Nucleated RBC 0.0 Nucleated RBC % 0.0 INR (Anticoag Therapy) Sodium Potassium Chloride Carbon Dioxide Anion Gap BUN Creatinine Est GFR ( Amer) Est GFR (Non-Af Amer) BUN/Creatinine Ratio Glucose Calcium Total Bilirubin AST ALT Alkaline Phosphatase Troponin I Total Protein Albumin Globulin Albumin/Globulin Ratio Studies: 09/15 CXR - Hypoventilation. Bibasilar infiltrates. CT brain - NAD Nutrition: general diet Impression: 64 yo F with early onset demential and short term memory loss was found confused and lethargic at home by neighbor on 09/15. Intubated in ED for airway protection. On evaluation found to have UTI and sepsis. Now mental status improved to baseline. Plan: Hospital Diagnoses: #1: Septic shock #2: Acute encephalopathy #3: Acute cystitis #4: Rhabdomyolysis Cardiovascular: (1) Septic shock, resolved; (2) NSTEMI, type 2/troponin leak; ( 3) CAD; (4) Chronic essential HTN -- HR 61-85 -- SBP 58-156 -- Telemetry -- TTE, 09/16: LVEF 60-65%. no WMA. no evidence for diastolic dysfunction. Trace MR. Trace TF. Trace KS. -- Cardiac markers CK follow trend troponin 0.08 from 0.12 -- Vasopressors Levophed now off Home meds: nitroglycerine patch PRN, Lasix, Eliquis Pulmonary: No acute issues -- RR 11-30 -- sats 90-100on 6L NC -- PRN Levalbuterol Home meds: None Gastrointestinal: (1) Transaminitis, improving; (2) GERD; (3) Hx of protein calorie malnutrition -- LFTs Tbili 0.3 ALK 44 AST 96 from 123, follow trend ALT 44 -- diet: general -- bowel regimen: Mag Ox, Miralax -- ulcer prophylaxis: Protonix -- PRN Zofran Home meds: Mag Ox Endocrine: (1) Hypothyroid -- monitor BGs -- TSH 5.79, elevated -- Synthroid -- Hydrocortisone, empiric for adrenal insufficiency, discontinue as now off pressors Home meds: None Renal: (1) Prerenal azotemia, resolved; (2) Hyponatremia, resolved; (3) Rhabdomyolysis -- UOP: 61 ml/hr -- Cr 0.74 from 1.26 -- Lytes Na 138 from 133 K 3.7 Ca 7.7, replace -- CK 3047 from 2597, hydrate, follow trend -- IVF: HL Home meds: Lasix Infectious disease: (1) Sepsis, resolved; (2) Acute cystitis with microscopic hematuria -- Tmax 99.5 -- WBC 21.2 from 25.3 -- Micro 09/15 MRSA negative sputum in progress UA positive urine no growth blood in process -- ABX Levaquin Home meds: None Neurologic: (1) Acute encephalopathy secondary to sepsis, resolved; (2) Restless leg syndrome; (3) Chronic back pain; (4) Chronic anxiety and depression ; (5) hx of tardive dyskinesia; (6) hx of suicide attempt; (7) hx of psychosis; (8) hx of poor compliance -- PRN Tylenol -- Gabapentin -- Zoloft -- PRN Morphine for pain control Home meds: Zoloft, Tetrabenzine, tylenol Hematological: (1) terminal gauger anticoagulation; (2) hx of DVT; (3) Hx of anemia -- Hgb 10.1 form 11.7 -- Plt 196 from 243 -- Coags INR 4.15 from 3.94 -- DVT prophylaxis: SQ Lovenox Home meds: Eliquis Metabolic: (1) Lactic acidosis, resolved Home meds: None Other: No acute issues -- Natural balance eye drops -- Saline nasal spray Home meds: Saline nasal spray, artifical tears Deep vein thrombosis prophylaxis: SQ Lovenox Dietary: Protonix Condition: stable Prognosis: good Code status: Full Disposition: transfer to floor Cumulative time spent in the care of this patient (excluding any procedure time) : at least 30 minutes. Patient care included clinical interview (with patient and/or family), bedside exam of the patient, review of labs, x-rays, and other ancillary data, coordination of (respiratory, nursing care, review of patient's records, discussion regarding patients management with involved consultants, primary physician, pharmacists, and other healthcare personnel (dietary, case management , physical/occupational therapy etc.) Critical Care Time: none
[2019-09-17] MEDS: Hydrocortisone INJ* 100 MG VIAL IV SCH (14:20)
[2019-09-17] MEDS: Enoxaparin(*) 40 MG/0.4 ML SYR SUBCUT SCH (17:13)
[2019-09-17] MEDS: Calcium Carbonate CHEW TAB* 500 MG (TUMS) PO SCH (19:50)
[2019-09-18] MEDS: Morphine INJ* 2 MG/ML 1 ML SYRINGE (TWO MG - NEW SYRINGE VERSION) IV PRN ×2 (00:52→03:52)
[2019-09-18] MEDS: ZOSYN 3.375 GM Q8H per EXTENDED INFUSION IVPB SCH ×6 (05:34→20:24)
[2019-09-18] MEDS: Levothyroxine INJ* 100 MCG/5 ML VIAL IV SCH (05:34)
[2019-09-18 06:02] LABS: Hematocrit 31 % (35-47); Hemoglobin 10.1 g/dL (12.0-16.0); Mean Corpuscular HGB Conc 33 g/dL (31-36); Mean Corpuscular Hemoglobin 27 pg (27-31); Mean Corpuscular Volume 84 fL (80-97); Mean Platelet Volume 8.3 fL (7.4-10.4); Platelet Count 217 10^3/uL (150-450); Red Blood Count 3.73 10^6 /uL (3.70-4.87); Red Cell Distribution Width 18 % (10-15); White Blood Count 14.5 10^3/uL (3.5-10.8)
[2019-09-18 06:24] LABS: BUN/Creatinine Ratio 33.8 (8-20); Calcium 7.9 mg/dL (8.6-10.3); EGFR African American 110.3 (>60); EGFR Non-African American 91.2 (>60); Potassium 3.1 mmol/L (3.5-5.0)
[2019-09-18] MEDS: NS 0.9% 1000 ML** 1,000 ML IV SCH (07:10)
[2019-09-18] MEDS: Calcium Carbonate CHEW TAB* 500 MG (TUMS) PO SCH ×2 (07:10→20:24)
[2019-09-18] MEDS ORDERED: Pantoprazole TAB * 40 MG TAB PO SCH (09:00)
--- NOTE | 2019-09-18 09:02 | PN ---
Subjective Date of Service: 09/18/19 Interval History: No c/o. She remembers much of her hospitalization. She states her double-checks her meds and it is unlikely she made a med error. Objective Active Medications: Acetaminophen (Tylenol Supp*) 650 mg FL Q4H PRN PRN Reason: MILD PAIN or TEMP > 100.4 Last Admin: 09/16/19 01:30 Dose: 650 mg Calcium Carbonate (Tums*) 500 mg PO BID [facility] Last Admin: 09/18/19 07:10 Dose: 500 mg Piperacillin Sod/Tazobactam (Sod 3.375 gm/ Sodium Chloride) 100 mls @ 25 mls/ hr IVPB Q8H [facility] Last Admin: 09/18/19 05:34 Dose: 25 mls/hr Levalbuterol HCl (Xopenex Hfa Inhaler*) 2 puff INH QID PRN PRN Reason: SHORTNESS OF BREATH Levothyroxine Sodium (Synthroid Tab*) 100 mcg PO DAILY@0600 [facility] Pantoprazole Sodium (Protonix Tab*) 40 mg PO DAILY [facility] Last Admin: 09/18/19 07:10 Dose: 40 mg Pharmacy Consult (Zosyn Per Pharmacy*) 1 note FOLLOW UP .ZOSYN PER PHARMACY [facility] Potassium Chloride (Klor Con Er Tab*) 20 meq PO BID [facility] Vital Signs - 8 hr 09/18/19 09/18/19 09/18/19 03:52 04:14 05:37 Temperature 97.9 F Pulse Rate 78 Respiratory 18 19 18 Rate Blood Pressure 118/63 (mmHg) O2 Sat by Pulse 92 Oximetry 09/18/19 07:14 Temperature Pulse Rate Respiratory 16 Rate Blood Pressure (mmHg) O2 Sat by Pulse Oximetry Oxygen Devices in Use Now: Nasal Cannula, CPAP Appearance: Alert, in a chair. In good spirits. Looks comfortable. Eyes: No Scleral Icterus Respiratory: Clear to Auscultation, Clear to Percussion, Clear to Palpation Cardiovascular: NL Sounds; No Murmurs; No JVD, RRR, No Edema, - Extremities: No Edema, No Clubbing, Cyanosis, - Skin: No Rash or Ulcers, No Nodules or Sclerosis, - Neurological: Alert and Oriented x 3, NL Sensation Result Diagrams: 09/18/19 05:40 09/18/19 05:40 Microbiology and Other Data: Microbiology 09/15/19 19:35 Gram Stain - Final Sputum Induced Sputum Culture - Final Staphylococcus Aureus 09/15/19 15:32 Aerobic Blood Culture - Preliminary Blood Venous No Growth Day 2 Anaerobic Blood Culture - Preliminary No Growth Day 2 09/15/19 15:29 Aerobic Blood Culture - Preliminary Blood Venous No Growth Day 2 Anaerobic Blood Culture - Preliminary No Growth Day 2 09/15/19 15:17 Urine Culture - Final Urine No Growth (<1,000 CFU/mL) 09/15/19 19:35 Nasal Screen MRSA (PCR) - Final Nasal Mrsa Not Detected Assess/Plan/Problems-Billing Assessment: - Patient Problems (1) Sepsis Current Visit: Yes Status: Acute Comment: Fever, leukocytosis. Neg cultures. Basilar infiltrates on CXR. Suspect aspiration while altered. Continue pip/giuliano one more day then switch to oral AB. (2) Altered mental state Current Visit: Yes Status: Acute Code(s): R41.82 - ALTERED MENTAL STATUS, UNSPECIFIED SNOMED Code(s): 981001945 Comment: Resolved. Possible med effect, serotonin syndrome or other. Slept well here without trazodone. Pt educated on need to reduce or eliminate dose of trazodone. (3) CATY (acute kidney injury) Current Visit: Yes Status: Acute Code(s): N17.9 - ACUTE KIDNEY FAILURE, UNSPECIFIED SNOMED Code(s): 59612591 Comment: Resolved. Stop IV fluids 09/18. (4) Hypokalemia Current Visit: Yes Status: Acute Code(s): E87.6 - HYPOKALEMIA SNOMED Code( s): 50188610 Comment: Oral KCL ordered . BMP 09/19. (5) Hypothyroid Current Visit: Yes Status: Acute Code(s): E03.9 - HYPOTHYROIDISM, UNSPECIFIED SNOMED Code(s): 29401898 Comment: TSH sl high (5.79)., Levothyroxine dose increased to 100 mcg start 09/19.
[2019-09-18] MEDS: Potassium Chlor TAB* 20 MEQ TAB.ER PO SCH ×2 (09:09→20:24)
[2019-09-18] MEDS ORDERED: Ondansetron TAB* 4 MG PO PRN (11:41)
[2019-09-18] MEDS: Acetaminophen TAB* 325 MG PO PRN ×2 (19:02→22:22)
[2019-09-18] MEDS ORDERED: Ibuprofen TAB* 400 MG PO ONE (23:24)
[2019-09-19] MEDS: Acetaminophen TAB* 325 MG PO PRN ×2 (02:49→10:29)
[2019-09-19] MEDS: ZOSYN 3.375 GM Q8H per EXTENDED INFUSION IVPB SCH ×4 (04:29→13:11)
[2019-09-19 04:46] LABS: Hematocrit 34 % (35-47); Mean Corpuscular HGB Conc 33 g/dL (31-36); Mean Corpuscular Hemoglobin 27 pg (27-31); Mean Corpuscular Volume 83 fL (80-97); Mean Platelet Volume 7.8 fL (7.4-10.4); Platelet Count 244 10^3/uL (150-450); Red Blood Count 4.08 10^6 /uL (3.70-4.87); Red Cell Distribution Width 17 % (10-15); White Blood Count 13.5 10^3/uL (3.5-10.8)
[2019-09-19 05:07] LABS: BUN/Creatinine Ratio 27.6 (8-20); Calcium 8.4 mg/dL (8.6-10.3); EGFR African American 125.9 (>60); Potassium 3.5 mmol/L (3.5-5.0)
[2019-09-19] MEDS ORDERED: Levothyroxine TAB* 100 MCG TAB PO SCH (06:00)
[2019-09-19] MEDS: Calcium Carbonate CHEW TAB* 500 MG (TUMS) PO SCH (07:17)
[2019-09-19] MEDS: Potassium Chlor TAB* 20 MEQ TAB.ER PO SCH (07:17)
[2019-09-19] MEDS ORDERED: Pneumococcal *Vac Polyvalent 0.5 ML VIAL IM ONE (09:00)
[2019-09-19 12:00] VITALS: BP 138/71
[2019-09-19 12:44] LABS: INR 3.03 (0.82-1.09)
[2019-09-19] MEDS ORDERED: Levothyroxine TAB* 100 MCG TAB PO ONE (13:15)
--- NOTE | 2019-09-19 13:38 | PN ---
Progress Note - Progress Note Date of Service: 09/19/19 Note: Time spent on discharge including exam of patient, discussion with patient, nurse, CM, review of EHR and preparation of discharge documents is 45 minutes.
--- NOTE | 2019-09-19 17:56 | DS ---
CC: Dr. Thierno Tijerina * DISCHARGE SUMMARY: DATE OF ADMISSION: 09/15/19 DATE OF DISCHARGE: 09/19/19 HISTORY OF PRESENT ILLNESS/HOSPITAL COURSE: This 64-year-old woman presented with unresponsiveness. The history is detailed in the admission note. She was found in her bathroom on the ground by a neighbor. The patient has a vague recollection of this. She was unresponsive to questioning in the emergency room. She was felt to have sepsis. Later on, it became more likely that the cause of the sepsis was aspiration during a period of unresponsiveness. This was never fully explained; however, I note she did fine here without any trazodone and was taking a relatively large dose of 150 mg at night at home. She did not seem to need this. It is possible that with time and combination of other medications and change in her body function, this was too much for her. She may have had some serotonin syndrome. In any event, she recovered completely. She was still being treated for aspiration pneumonia at the time of discharge. Her INR was quite high. It is still 3 at the time of discharge and I am having her reduce her warfarin to 1 mg 3 times a week. She will start on 09/20/19. She will have an INR on 09/24/19. Her TSH was 5.79 and her levothyroxine dose has been increased to 200 mcg daily. FINAL DIAGNOSES: 1. Sepsis due to aspiration pneumonia. 2. Altered mental status, possibly related to trazodone or other medications. 3. Acute kidney injury, resolved. 4. Hyperkalemia. 5. Hypothyroidism. DISCHARGE MEDICATIONS: 1. Levothyroxine 200 mcg daily. 2. Amoxicillin/clavulanate 875 mg b.i.d. for 4 days. 3. Pregabalin 300 mg 4 times daily. 4. Hydrochlorothiazide 12.5 mg daily. 5. Montelukast 10 mg daily. 6. Lisinopril 20 mg daily. 7. Levalbuterol inhaler 2 puffs 4 times a day. 8. Methenamine hippurate 1 g b.i.d. 9. Venlafaxine 150 mg b.i.d. 10. Solifenacin 10 mg daily. 11. Potassium chloride 20 mEq daily. 12. Levalbuterol 3 mL by inhaler t.i.d. 13. Ropinirole 4 mg daily. 14. Warfarin 1 mg on Friday, Friday and Friday. FOLLOWUP LABS: The patient will have an INR on 09/24/19. CONDITION ON DISCHARGE: Improved. DISPOSITION ON DISCHARGE: Discharged home. [id number]/[facility] #: [id number] [facility]
[2019-09-19] MEDS ORDERED: Amoxicillin/Clavulanate TAB* 875 MG PO SCH (21:00)
[2019-09-20] MEDS ORDERED: Levothyroxine TAB* 100 MCG TAB PO SCH (06:00)
== END 2019-09-19 14:45 | disposition home or self-care (01) | DRG 871 ==
LOC: ED 15:06 → ICU 17:55 → MED 09-17 11:47
PROVIDERS: ADMIT Internal Medicine; ATTEND Internal Medicine
PROC: 0BH17EZ Insertion of Endotracheal Airway into Trachea, Via Natural or Artificial Opening (ICD-10-PCS; principal; 2019-09-15)
PROC: 5A1935Z Respiratory Ventilation, Less than 24 Consecutive Hours (ICD-10-PCS; 2019-09-15)
PROC: 05HM33Z Insertion of Infusion Device into Right Internal Jugular Vein, Percutaneous Approach (ICD-10-PCS; 2019-09-15)
PROC: B543ZZA Ultrasonography of Right Jugular Veins, Guidance (ICD-10-PCS; 2019-09-15)
DX: A41.9 Sepsis, unspecified organism (principal); J69.0 Pneumonitis due to inhalation of food and vomit; R65.21 Severe sepsis with septic shock; I21.A1 Myocardial infarction type 2; N17.9 Acute kidney failure, unspecified; M62.82 Rhabdomyolysis; G93.40 Encephalopathy, unspecified; N30.00 Acute cystitis without hematuria; E87.1 Hypo-osmolality and hyponatremia; E87.2 Acidosis; I95.9 Hypotension, unspecified; F03.90 Unspecified dementia, unspecified severity, without behavioral disturbance, psychotic disturbance, mood disturbance, and anxiety; R41.82 Altered mental status, unspecified; T43.215A Adverse effect of selective serotonin and norepinephrine reuptake inhibitors, initial encounter; E87.5 Hyperkalemia; E03.9 Hypothyroidism, unspecified; G47.33 Obstructive sleep apnea (adult) (pediatric); J45.909 Unspecified asthma, uncomplicated; N32.81 Overactive bladder; F32.9 Major depressive disorder, single episode, unspecified; K21.9 Gastro-esophageal reflux disease without esophagitis; F41.9 Anxiety disorder, unspecified; R74.0 Nonspecific elevation of levels of transaminase and lactic acid dehydrogenase [LDH]; G89.29 Other chronic pain; G25.81 Restless legs syndrome; I25.10 Atherosclerotic heart disease of native coronary artery without angina pectoris; E66.9 Obesity, unspecified; I44.4 Left anterior fascicular block; Y92.009 Unspecified place in unspecified non-institutional (private) residence as the place of occurrence of the external cause; Z68.38 Body mass index [BMI] 38.0-38.9, adult; Z88.6 Allergy status to analgesic agent; Z79.899 Other long term (current) drug therapy; Z79.01 Long term (current) use of anticoagulants
CPT/HCPCS: 36415; 36600; 70450; 71045; 80048; 80053; 80307; 80320; 80329; 81003; 81015; 82140; 82550; 82803; 83605; 83735; 84443; 84484; 85025; 85027; 85610; 87040; 87070; 87077; 87086; 87186; 87205; 87641; 93005; 93306; 95816; 99285; A9270-GY; C8929; G0480; G8978-GP-CK; G8979-GP-CJ; J0330; J0610; J0692; J1650; J1720; J2250; J2270; J2543; J3010

== ENCOUNTER 2019-10-01 11:45 | Inpatient (IN) | payer MEDICARE ==
--- NOTE | 2019-10-01 11:52 | ED ---
Altered Mental Status - HPI Summary HPI Summary: This pt is a 64 y/o female presenting to [facility] via EMS for AMS and fall this morning. Pt reports she was sitting on the edge of the bed when she was looking at her medications and fell forward. Pt denies LOC. Pt denies head strike but does endorse hitting her elbow. Pt denies any pain. Pt denies SOB, fever, chills , cough, pain with urination, abd pain. EMS denies any injury after patient's fall. Per EMS pt's became lethargic yesterday and today pt has been worse. Per EMS reported all pt has done today is sleep and has increased confusion. Pt states she can't walk and uses an electric chair at home. Pt reports feeling weak before but now states feeling better. EMS reports pt was seen recently in the ED and diagnosed with a UTI that per spread to the lungs. Per EMS pt was saturating at 84% on room air and placed pt on 4L of NC O2. Pt states she only uses oxygen at night time at home. Pt denies any NKDA, however medical chart shows pt is allergic to NSAIDs. Medications reviewed. Allergies noted. - History Of Current Complaint Stated Complaint: AMS, WEAKNESS Hx Obtained From: Patient, EMS Onset/Duration: Still Present Timing: Lasting Days Severity Currently: Mild Character: Confusion Aggravating Factor(s): Nothing Alleviating Factor(s): Nothing Associated Signs And Symptoms: Positive: Weakness, Recent Trauma. Negative: Fever - NEGATIVE: chills, SOB, cough, pain with urination, abd pain - Allergies/Home Medications Allergies/Adverse Reactions: Allergies Allergy/AdvReac Type Severity Reaction Status Date / Time NSAIDS (Non-Steroidal Allergy Unknown Verified 10/01/19 11:59 Anti-Inflamma Reaction Details PMH/Surg Hx/FS Hx/Imm Hx Endocrine/Hematology History: Denies: Hx Diabetes Cardiovascular History: Reports: Hx Hypertension Denies: Hx Hypercholesterolemia Respiratory History: Reports: Hx Asthma, Hx Chronic Obstructive Pulmonary Disease (COPD) History: Reports: Other Problems/Disorders - per son, Pt has freq UTI Sensory History: Comment Only: Hx Contacts or Glasses - chito, Hx Hearing Aid - chito Opthamlomology History: Comment Only: Hx Contacts or Glasses - chito Neurological History: Comment Only: Hx Dementia - son states early stage? - Surgical History Surgical History: Yes Surgery Procedure, Year, and Place: Back surgeries - Family History Known Family History: Positive: Unknown - Level 5 Caveat, patient has AMS - Social History Alcohol Use: CHITO Alcohol Amount: patient is unable to provide history as she has altered mental status Substance Use Type: Reports: Other Substance Use Comment - Amount & Last Used: patient is unable to provide history as she has altered mental status Smoking Status (MU): Unknown if Ever Smoked - patient is unable to provide history as she has altered mental status Review of Systems Negative: Fever, Chills Negative: Shortness Of Breath, Cough Negative: Abdominal Pain Negative: dysuria Neurological: Other - NEGATIVE: LOC. POSTIVE: confusion Positive: Weakness All Other Systems Reviewed And Are Negative: Yes Physical Exam - Summary Physical Exam Summary: Constitutional: Well-developed, Well-nourished, Alert. (-) Distressed Skin: Warm, Dry HENT: Normocephalic; Atraumatic Eyes: Conjunctiva normal Neck: Musculoskeletal ROM normal neck. (-) JVD, (-) Stridor, (-) Tracheal deviation Cardio: Rhythm regular, rate normal, Heart sounds normal; Intact distal pulses; The pedal pulses are 2+ and symmetric. Radial pulses are 2+ and symmetric. (-) Murmur Pulmonary/Chest wall: Effort normal. (-) Respiratory distress, (-) Wheezes, (-) Rales Abd: Soft, (-) tenderness, (-) Distension, (-) Guarding, (-) Rebound Musculoskeletal: (-) Edema Lymph: (-) Cervical adenopathy Neuro: Alert and oriented to person, place, year but not month. Psych: Mood and affect Normal Triage Information Reviewed: Yes Vital Signs On Initial Exam: Initial Vitals Temp Pulse Resp BP Pulse Ox 98.3 F 97 18 99/58 98 10/01/19 11:48 10/01/19 11:48 10/01/19 11:48 10/01/19 11:48 10/01/19 11:48 Vital Signs Reviewed: Yes - Jenise Coma Scale Best Eye Response: 4 - Spontaneous Best Motor Response: 6 - Obeys Commands Best Verbal Response: 5 - Oriented Coma Scale Total: 15 Procedures - Sedation Patient Received Moderate/Deep Sedation with Procedure: No Diagnostics - Laboratory Result Diagrams: 10/01/19 12:15 10/01/19 12:15 Lab Statement: Any lab studies that have been ordered have been reviewed, and results considered in the medical decision making process. - Radiology Chest XR Radiology Interpretation Completed By: Radiologist Summary of Radiographic Findings: IMPRESSION: Low lung volumes, small right basilar infiltrate. Dr. Bonds has reviewed this report. - CT Brain CT CT Interpretation Completed By: Radiologist Summary of CT Findings: IMPRESSION: No acute intracranial abnormality. Dr. Bonds has reviewed this report. - EKG 13:23 Cardiac Rate: NL - at 94 bpm EKG Rhythm: Sinus Rhythm Summary of EKG Findings: EKG at 1323 shows normal sinus rhythm at a rate of 94 bpm. No obvious ischemic changes. Altered Mental Statu Course/Dx - Course Course Of Treatment: Patient is here with altered mental status and mechanical fall. Patient was sitting on the edge of her bed when she fell forward and hit the ground. Patient did not lose consciousness and had no pain complaints upon arrival. Patient had a recent admission to the ICU with a similar presentation. At that time, patient was unresponsive admitted to the ICU with hypotension. Patient was discharged with diagnosis of aspiration pneumonia and probable trazodone overdose. Patient stopped her trazodone per the admitting team but was restarted on it by her primary care doctor per family. Patient was borderline hypotensive here at times and was given 1 L of IV fluids. Patient was mentating the whole time with a normal heart rate. Patient had blood which showed a troponin 0.03. Patient did have elevated troponins in her last admission and had a negative echocardiogram at that time. Patient has no ischemic changes per EKG. Patient also is worsening kidney function here compared to her last level. Patient negative CT brain. Patient a chest x-ray showed a right lower lobe infiltrate and was given azithromycin and Rocephin. Patient is admitted to the hospitalist service. - Diagnoses Provider Diagnoses: AMS (altered mental status), Hypoxemia, Fall, Elevated troponin, Hypotension - Provider Notifications Discussed Care Of Patient With: Demarcus Hollingsworth - hospitalist Time Discussed With Above Provider: 13:56 Instructed by Provider To: Admit As Inpatient Discharge ED - Sign-Out/Discharge Documenting (check all that apply): Patient Departure - Admit to [facility] - Discharge Plan Condition: Stable Disposition: ADMITTED TO [facility] Referrals: Thierno Tijerina DO [Primary Care Provider] - - Billing Disposition and Condition Condition: STABLE Disposition: Admitted to [facility] - Attestation Statements Document Initiated by Eboniibjoni: Yes Documenting Scribe: Dorothea García Provider For Whom Eboniibjoni is Documenting (Include Credential): Fransico Bonds MD Scribe Attestation: Dorothea Marquez, scribed for Fransico Bonds MD on 10/01/19 at 1411. Scribe Documentation Reviewed: Yes Provider Attestation: The documentation as recorded by the Dorothea aguilar accurately reflects the service I personally performed and the decisions made by ar, Fransico Bonds MD Status of Scribe Document: Viewed
[2019-10-01 12:24] LABS: Hematocrit 32 % (35-47); Hemoglobin 10.3 g/dL (12.0-16.0); Mean Corpuscular HGB Conc 32 g/dL (31-36); Mean Corpuscular Hemoglobin 27 pg (27-31); Mean Corpuscular Volume 85 fL (80-97); Mean Platelet Volume 7.3 fL (7.4-10.4); Platelet Count 358 10^3/uL (150-450); Red Blood Count 3.81 10^6 /uL (3.70-4.87); Red Cell Distribution Width 19 % (10-15); White Blood Count 9.2 10^3/uL (3.5-10.8)
[2019-10-01 12:30] LABS: ABS Eosinophils 0.1 10^3/ul (0-0.6); ABS Lymphocytes 1.4 10^3/ul (1.0-4.8); ABS Monocytes 1.7 10^3/ul (0-0.8); Eosinophil % 0.9 %; Lymphocyte % 15.7 %
[2019-10-01 12:51] LABS: ALT 15 U/L (7-52); AST 27 U/L (13-39); Albumin/Globulin Ratio 0.7 (1-3); Alkaline Phosphatase 50 U/L (34-104); Anion Gap 3 mmol/L (2-11); Blood Urea Nitrogen 27 mg/dL (6-24); CO2 Carbon Dioxide 38 mmol/L (22-32); Chloride 92 mmol/L (101-111); EGFR African American 39.3 (>60); EGFR Non-African American 32.5 (>60); Globulin 4.1 g/dL (2-4); Glucose 85 mg/dL (70-100); Potassium 4.9 mmol/L (3.5-5.0); Sodium 133 mmol/L (135-145); Total Protein 7.1 g/dL (6.4-8.9)
[2019-10-01 12:53] LABS: Troponin I 0.03 ng/mL (<0.03)
[2019-10-01] MEDS ORDERED: cefTRIAXone(*) 1 GM in NS 0.9% 50 ML* 50 ML IVPB ONE (12:53)
[2019-10-01] MEDS ORDERED: Azithromycin 500 mg/250 ml NS 500 MG/250 ML BAG IVPB ONE (12:54)
[2019-10-01] MEDS ORDERED: NS 0.9% 1000 ML** 1,000 ML IV ONE ×3 (12:54→17:47)
[2019-10-01 13:19] LABS: TSH (Thyroid Stimulating Horm) 1.75 mcIU/mL (0.34-5.60)
[2019-10-01 13:21] LABS: Free T4 1.08 ng/dL (0.61-1.12)
[2019-10-01 13:23] LABS: INR 1.64 (0.82-1.09)
[2019-10-01 16:11] LABS: Urine Appearance Cloudy; Urine Bilirubin Negative (Negative); Urine Blood Negative (Negative); Urine Color Yellow; Urine Glucose Negative (Negative); Urine Ketones Negative (Negative); Urine Nitrite Negative (Negative); Urine Protein 1+(30 mg/dL) (Negative); Urine Specific Gravity 1.016 (1.010-1.030); Urine Urobilinogen Negative (Negative)
[2019-10-01 16:17] LABS: Troponin I 0.03 ng/mL (<0.03)
[2019-10-01 16:27] LABS: Urine Bacteria 1+ (Absent); Urine Red Blood Cell Absent (Absent); Urine Squamous Epithelial Cell Present (Absent); Urine White Blood Cell 3+(>20/hpf) (Absent)
[2019-10-01] MEDS ORDERED: Levalbuterol HFA INHALER* 1 PUFF MDI INH PRN (16:48)
[2019-10-01] MEDS ORDERED: Piperacillin/Tazobac ADVAN(*) 3.375 GM in NS 0.9% 100 ML* 100 ML IVPB ONE (16:48)
[2019-10-01] MEDS ORDERED: Zosyn per Pharmacy* NOTE FOLLOW UP SCH (17:00)
[2019-10-01 17:01] LABS: C Reactive Protein 114.42 mg/L (<8.01)
[2019-10-01] MEDS ORDERED: Enoxaparin(*) 100 MG/ML SYR SUBCUT SCH (18:00)
[2019-10-01 18:28] LABS: Total Iron Binding Capacity 365 mcg/dL (250-450); Transferrin 261 mg/dL (203-362)
[2019-10-01 18:48] LABS: Ferritin 28.7 ng/mL (11-307)
[2019-10-01 18:49] LABS: % Iron Saturation 5 % (15-55); Iron < 20 ug/dL (50-212)
[2019-10-01] MEDS: Mometasone/Formoter 200/5 MDI INH SCH (19:20)
[2019-10-01] MEDS: Montelukast Sodium TAB* 10 MG PO SCH (19:35)
[2019-10-01] MEDS ORDERED: NS 0.9% 1000 ML** 1,000 ML IV SCH (20:00)
--- NOTE | 2019-10-01 20:29 | HP ---
HISTORY AND PHYSICAL: DATE OF ADMISSION: 10/01/19 ADMITTING PROVIDER: Demarcus Hollingsworth MD PRIMARY CARE PROVIDER: Dr. Tijerina. OUTPATIENT NEUROLOGIST: Dr. Juárez. OUTPATIENT UROLOGIST: Dr. Cruz of [place]. CHIEF COMPLAINT: Altered mental status after rolling out of bed. HISTORY OF PRESENT ILLNESS: Renetta Ruiz is a 64-year-old female with past medical history of multiple spine surgeries with resulted neurogenic bladder and has been wheelchair bound for the last 30 years; fibromyalgia; obstructive sleep apnea; asthma; hypothyroidism; restless legs syndrome; dementia; suicide attempt; PE, on warfarin. She recently was admitted from 09/15/19 to 09/19/19 after she had been found covered in feces by toilet after her had left [facility] and a neighbor been asked to check on her. She had been intubated for respiratory protection and had been on pressors for septic shock of unclear etiology, but was suspected to be aspiration pneumonia and had been discharged on Augmentin. She also had reported rhabdomyolysis. Echo at that time showed EF of 60% to 65%. She has been recuperating at home and doing fairly well. Her again left [facility] on a trip and she was being taken care of by her cousin. returned last night. The patient slept all night long as opposed to her past of having restless sleep. She says she remembers what happened that she tried to get up, but rolled out and fell on the ground. Her , Kenton, says that she was acutely confused, could not understand either the content or the intelligibility of what she was saying at that time and she was transported to [facility] Emergency Room for further evaluation. Her clarity of speech has since improved. She was found to be hypotensive initially 99/50, but as low as 70s/40s and chest x-ray was read as a small right basilar infiltrate and she was given ceftriaxone and azithromycin. She was afebrile, T- max was 99.1. She was referred to hospitalist service for admission for altered mental status and suspected pneumonia. The patient got 1 L of normal saline in the emergency room bolused. There was also suspicion that perhaps the trazodone which of note she had been on for years may have caused some of her altered mental status, but she was returned on that as an outpatient. Additional workup included acute kidney injury with creatinine to 1.59. She follows up with an urologist in [place] and has been recommended to straight cath herself, but she does not do so. We are waiting on the lactic acid level and of note antibiotics were given before blood cultures were obtained. PAST MEDICAL HISTORY: Obstructive sleep apnea; asthma; depression; neurogenic bladder; wheelchair bound, with left greater than right weakness; advancing dementia; restless legs syndrome; PE, on warfarin anticoagulation; what sounds like VT, status post 2 ablations; recent septic shock and hypoxic respiratory failure from suspected aspiration pneumonia. MEDICATIONS: Include: 1. Xopenex 2 puffs inhaled 4 times a day p.r.n. 2. Diana 180 mg p.o. daily. 3. Namenda 10 mg p.o. b.i.d. 4. Warfarin 1 mg daily. 5. Calcium carbonate 600 mg daily. 6. Hydromorphone 4 mg p.o. t.i.d. p.r.n. ( implies that this is not a daily medication for her). 7. Vitamin B12 500 mcg p.o. daily. 8. Cranberry 300 mg p.o. daily. 9. Ascorbic acid 500 mg p.o. daily. 10. Dulera 2 puffs inhaled b.i.d. 11. Trazodone 150 mg p.o. at bedtime p.r.n. 12. Venlafaxine 150 mg p.o. b.i.d. 13. Hiprex 1 g p.o. b.i.d. 14. Ropinirole 2 mg p.o. daily. 15. Lisinopril 20 mg p.o. daily. 16. Flexeril 10 mg p.o. b.i.d. p.r.n. 17. VESIcare 10 mg p.o. daily. 18. Hydrochlorothiazide 12.5 mg p.o. daily. 19. Singulair 10 mg p.o. daily. 20. Levothyroxine 200 mcg p.o. daily. 21. Lyrica 150 mg p.o. 4 times daily. ALLERGIES: NSAIDs are avoided, unknown reason. FAMILY HISTORY: Her mother of lung cancer in her 80s. Father of colon cancer in his 70s. She has an older sister with breast cancer, a younger sister with breast cancer, and a young brother who is status post CABG. SOCIAL HISTORY: The patient is a never smoker, does not drink. She is a former RN. She desires to be a full code. Her , Kenton, is her medical surrogate. She does not have any home health aides or nursing support at home. Kenton helps take care of her. She is wheelchair bound for the last 30 years. REVIEW OF SYSTEMS: A complete 14-point review of systems negative except as per HPI. She denies any shaking episodes, night sweats, headaches, skin changes. She denies any coughing. PHYSICAL EXAMINATION GENERAL APPEARANCE: No acute distress, but chronically ill appearing, initially looks as if she is asleep, but she is easily arousable to voice. HEENT: Normocephalic, atraumatic. Pupils are equal, round, and reactive to light. Extraocular motions intact. No scleral icterus. LUNGS: Anteriorly clear to auscultation. CARDIOVASCULAR: Regular rate and rhythm. No murmurs, rubs, or gallops. ABDOMEN: Soft, nontender, nondistended. EXTREMITIES: Warm, well perfused. Trace peripheral edema bilaterally. NEURO: Cranial nerves II through XII intact. Breaker Up strength intact bilaterally. Sensation in the lower extremities is intact bilaterally. SKIN: No lesions. No rashes. DIAGNOSTIC STUDIES/LAB DATA: White count 9.2, hemoglobin 10.3, hematocrit 32, platelets 358. INR 1.64. Sodium 133, potassium 4.9, chloride 92, carbon dioxide 38, BUN 27, creatinine 1.59, glucose 85. AST 27, ALT 15, alk phos 50. Troponin 0.03, CRP 114, BNP 46. Total protein 7.1. TSH 1.75, free T4 1.08. Urinalysis: 1+ protein, 3+ leukocyte esterase, 3+ wbc's, squamous epithelial cells present, 1+ bacteria, hyaline casts present. Imaging: CT of the brain noncontrast shows no acute process. Chest x-ray demonstrated a small right basilar infiltrate and low lung volumes. EKG demonstrated ectopic atrial rhythm with inverted T axis, but marches at 1:1 ; Q waves in V1, borderline in V2, V3, III, aVF; P axis had been normal, but positive in previous EKG on 09/15/19, same distribution of Q waves; QTc is 437; VA 148; QRS 102. No ST elevations or depressions. ASSESSMENT AND PLAN: 1. Renetta Ruiz is a 64-year-old female with past medical history of 30 years of being wheelchair bound with neurogenic bladder after several spinal surgeries ; obstructive sleep apnea, on CPAP; hypothyroidism; fibromyalgia; depression; pulmonary emboli; and recent admission for being found unresponsive, septic shock with suspected aspiration pneumonia, rhabdomyolysis, hypoxic respiratory failure, who had been recovering at home after completing course of Augmentin. She rolled out of her bed and then was acutely confused. She seems to have recalled the events leading up this fall from bed, but this is not a second time where she was found extremely altered. Her initial workup is significant for acute kidney injury and hypotension with blood pressures mostly in the MAPs of around 65 or so, but dipped down to as low as 50. She is status post 1 L of normal saline bolus. I am giving her full sepsis fluid bolus, following up on her lactic acidosis. She was started on ceftriaxone and azithromycin for a suspected left basilar pneumonia in the setting of her recent aspiration pneumonia. Hard to definitively state if this is just resolving radiological artifacts. She does have a dirty urine/ urinalysis, acute kidney injury and history of neurogenic bladder, had not voided for approximately 18 hours until straight cath in the ED, suspect urinary source is more likely. She is notably afebrile. It is unclear exactly how poor her mental status is at baseline. She is arousable and can hold a conversation, but definitely chronically ill- appearing. Unfortunately, the ceftriaxone and azithromycin were given before blood cultures were obtained, so their utility will be circumspect. She is being admitted to the intensive care unit as her pressures are borderline and she may need a pressor support depending on clinical course. Differential also for hypotension includes pulmonary embolism. She is subtherapeutic on her INR as her warfarin had been reduced from 3 mg daily to 1 mg daily after her admission after she had been supratherapeutic. I am adding on a D- dimer and could consider a V/Q scan in the morning or a CTA if her creatinine clearance improves. She does not have any tachycardia. I am changing her antibiotic to Zosyn given her recent aspiration pneumonia and we can continue the azithromycin as well. 2. She has chronic obstructive sleep apnea and uses 3 L at night and intermittently. Frankly, it sounds like she has chronic hypoxic respiratory failure in general. The , Kenton, says that they occasionally check her oxygen level and only if it reaches to the 70s, they put her on a few liters. She usually hangs out in the mid 80s at baseline. There may be a component of obesity hypoventilation syndrome or deconditioning of the respiratory and cardiothoracic muscles. Of note, she did have an echocardiogram recently during last admission, which showed an ejection fraction of 60% to 65% and unfortunately pulmonary artery systolic pressures could not be accurately estimated as the tricuspid valve was not well visualized. Given this finding, we cannot rule out a degree of pulmonary hypertension. I do not see a former study other than that. She does not have elevated BNP here. She was requiring 4 L in the emergency room. We will continue her inhalers. 3. Altered mental status. I am going to get EEG. There is no report of any abnormal limb movements, urinary incontinence, or tongue biting with any of these events of note. She has no focal neurological deficits on exam at this time other than her baseline weakness in the left lower extremity greater than right and general deconditioning. 4. For her history of pulmonary embolism, deep venous thrombosis, with subtherapeutic INR of 1.64, I am increasing her warfarin from 1 mg to 2 mg here. Given her hypoxia and hypotension, we will give her 1 dose of 1 mg/kg Lovenox q.12 hours until it is therapeutic or we are able to get the D-dimer relatively to rule out pulmonary embolism. 5. For her acute kidney injury, we are checking on urine sodium, urine creatinine, and urine urea. We are getting postvoid bladder scans and if she does not void, may need a Ca catheter placement or intermittent catheterization. BMP daily. She is getting a sepsis fluid bolus and then likely maintenance IV fluids. 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 6 DVT prophylaxis: As above with warfarin and Lovenox until pulmonary embolism can be ruled out. 7. Troponins are stably elevated at 0.03 and 0.03. There are no ischemic changes on EKG. She will be on telemetry service. 8. Anemia, normocytic with elevated RDW and hemoglobin 10.3, about her baseline from last 2 weeks. Her iron studies are back from 2013. . 9. She is a full code. Medical surrogate is , Kenton. 10. She can eat a heart-healthy diet. [id number]/[facility] #: [id number] MTDAshley
[2019-10-01] MEDS: Venlafaxine EXT RELEASE CAP* 75 MG PO SCH (21:34)
[2019-10-01] MEDS: Memantine TAB* 10 MG PO SCH (21:34)
[2019-10-01] MEDS: ZOSYN 3.375 GM Q8H per EXTENDED INFUSION IVPB SCH ×2 (21:36)
[2019-10-01] MEDS ORDERED: NS 0.9% 1000 ML/HR X 1 BAG (TOTAL 1000 ML) IV ONE (22:00)
[2019-10-01] MEDS ORDERED: Acetaminophen IV 1GM/100ML * 100 ML IVPB ONE (22:00)
[2019-10-01] MEDS ORDERED: NS 0.9% 1000 ML** 2,000 ML IV ONE (22:15)
[2019-10-01] MEDS ORDERED: Norepinephrine 16MCG/ML IVPRE* 4,000 MCG/250 ML BAG IV SCH (23:00)
[2019-10-02 01:02] LABS: Hematocrit 30 % (35-47); Hemoglobin 9.7 g/dL (12.0-16.0); Mean Corpuscular HGB Conc 32 g/dL (31-36); Mean Corpuscular Hemoglobin 28 pg (27-31); Mean Corpuscular Volume 85 fL (80-97); Mean Platelet Volume 7.5 fL (7.4-10.4); Platelet Count 270 10^3/uL (150-450); Red Blood Count 3.51 10^6 /uL (3.70-4.87); Red Cell Distribution Width 19 % (10-15); White Blood Count 9.3 10^3/uL (3.5-10.8)
[2019-10-02] MEDS: Nystatin TOP POWDER* 15 GM BTL TOPICAL SCH ×3 (01:10→20:49)
[2019-10-02 01:19] LABS: Anion Gap 3 mmol/L (2-11); BUN/Creatinine Ratio 26.8 (8-20); Blood Urea Nitrogen 26 mg/dL (6-24); CO2 Carbon Dioxide 32 mmol/L (22-32); Calcium 7.4 mg/dL (8.6-10.3); Chloride 102 mmol/L (101-111); EGFR African American 69.5 (>60); EGFR Non-African American 57.5 (>60); Glucose 93 mg/dL (70-100); Potassium 3.8 mmol/L (3.5-5.0); Sodium 137 mmol/L (135-145)
[2019-10-02 01:23] LABS: Troponin I 0.05 ng/mL (<0.03)
[2019-10-02] MEDS: ZOSYN 3.375 GM Q8H per EXTENDED INFUSION IVPB SCH ×6 (05:44→22:50)
[2019-10-02] MEDS: Levothyroxine TAB* 100 MCG TAB PO SCH (05:44)
[2019-10-02 06:01] LABS: ABS Lymphocytes 1.5 10^3/ul (1.0-4.8); Eosinophil % 0.5 %; Hematocrit 31 % (35-47); Lymphocyte % 17.8 %; Mean Corpuscular HGB Conc 33 g/dL (31-36); Mean Corpuscular Hemoglobin 27 pg (27-31); Mean Corpuscular Volume 84 fL (80-97); Mean Platelet Volume 7.4 fL (7.4-10.4); Nucleated Red Blood Cells % 0.1; Platelet Count 281 10^3/uL (150-450); Red Blood Count 3.64 10^6 /uL (3.70-4.87); Red Cell Distribution Width 18 % (10-15); White Blood Count 8.6 10^3/uL (3.5-10.8)
[2019-10-02 06:07] LABS: INR 2.14 (0.82-1.09)
[2019-10-02 06:15] LABS: BUN/Creatinine Ratio 25.6 (8-20); Calcium 7.7 mg/dL (8.6-10.3); EGFR African American 89.4 (>60); EGFR Non-African American 73.9 (>60); Potassium 4.3 mmol/L (3.5-5.0)
[2019-10-02] MEDS: Mometasone/Formoter 200/5 MDI INH SCH ×2 (07:59→19:14)
[2019-10-02] MEDS: Montelukast Sodium TAB* 10 MG PO SCH (08:58)
[2019-10-02] MEDS: Venlafaxine EXT RELEASE CAP* 75 MG PO SCH ×2 (08:58→20:49)
[2019-10-02] MEDS: Cyanocobalamin TAB* 500 MCG PO SCH (08:59)
[2019-10-02] MEDS: rOPINIRole TAB* 1 MG PO SCH (08:59)
[2019-10-02] MEDS: Memantine TAB* 10 MG PO SCH ×2 (08:59→20:49)
[2019-10-02] MEDS: SOLIFENACIN 10 MG PO SCH (09:01)
--- NOTE | 2019-10-02 12:15 | PN ---
Date of Service: 10/02/19 Critical Care Services: 64 y/o wheelchairbound female with neurogenic bladder, dementia, and Hx DVT who was admitted to ICU yesterday with hypotension (requiring pressor Rx) and altered mental status, possible secondary to UTI or pneumonia (RLL). Lactate was normal on admission. Patient had an uneventful night, and this AM is off vasopressor Rx and is alert and appears comfortable. Vital Signs: Temp Pulse Resp BP SpO2 FiO2 99.5 F 94 14 90/38 92 Physical Exam: Gen:No apparent distress HEENT: No facial asymmetry Lungs: Occasional rhonchi Cardiac: Reg rhythm Abdomen: Not distended Extremities: Cool. No cyanosis or edema Fluid Balance (Past 24 Hours): 10/02/19 10/03/19 06:59 06:59 Intake Total 6134 240 Output Total 1825 990 Balance 4309 -750 Weight 247 lb Intake: IV Fluids 5908 levophed 102 normal saline 4756 IVPB 226 abx 121 tylenol 105 Oral 240 Output: Ca 1825 990 Other: Estimated Void Small Estimated Stool Amount Medium # Voids 0 Labs: 10/01/19 10/01/19 10/01/19 12:15 12:15 12:15 WBC 9.2 RBC 3.81 Hgb 10.3 L Hct 32 L MCV 85 MCH 27 MCHC 32 RDW 19 H Plt Count 358 MPV 7.3 L Neut % (Auto) 64.9 Lymph % (Auto) 15.7 [place] % (Auto) 18.1 Eos % (Auto) 0.9 Baso % (Auto) 0.4 Absolute Neuts (auto) 6.0 Absolute Lymphs (auto) 1.4 Absolute Monos (auto) 1.7 H Absolute Eos (auto) 0.1 Absolute Basos (auto) 0.0 Absolute Nucleated RBC 0.0 Nucleated RBC % 0.0 INR (Anticoag Therapy) D-Dimer, Quantitative Sodium 133 L Potassium 4.9 Chloride 92 L Carbon Dioxide 38 H Anion Gap 3 BUN 27 H Creatinine 1.59 H Est GFR ( Amer) 39.3 Est GFR (Non-Af Amer) 32.5 BUN/Creatinine Ratio 17.0 Glucose 85 Lactic Acid Calcium 9.0 Iron < 20 L TIBC 365 % Saturation 5 L Unsat Iron Binding < 350 Transferrin 261 Ferritin 28.7 Total Bilirubin 0.30 AST 27 ALT 15 Alkaline Phosphatase 50 Ammonia Troponin I 0.03 H* C-Reactive Protein B-Natriuretic Peptide 46 Total Protein 7.1 Albumin 3.0 L Globulin 4.1 H Albumin/Globulin Ratio 0.7 L TSH 1.75 Free T4 1.08 Urine Color Urine Appearance Urine pH Ur Specific [place] Urine Protein Urine Ketones Urine Blood Urine Nitrate Urine Bilirubin Urine Urobilinogen Ur Leukocyte Esterase Urine WBC (Auto) Urine RBC (Auto) Ur Squamous Epith Cells Urine Bacteria Hyaline Casts Urine Glucose Urine Ascorbic Acid 10/01/19 10/01/19 10/01/19 12:15 15:36 16:00 WBC RBC Hgb Hct MCV MCH MCHC RDW Plt Count MPV Neut % (Auto) Lymph % (Auto) [place] % (Auto) Eos % (Auto) Baso % (Auto) Absolute Neuts (auto) Absolute Lymphs (auto) Absolute Monos (auto) Absolute Eos (auto) Absolute Basos (auto) Absolute Nucleated RBC Nucleated RBC % INR (Anticoag Therapy) 1.64 H D-Dimer, Quantitative Sodium Potassium Chloride Carbon Dioxide Anion Gap BUN Creatinine Est GFR ( Amer) Est GFR (Non-Af Amer) BUN/Creatinine Ratio Glucose Lactic Acid Calcium Iron TIBC % Saturation Unsat Iron Binding Transferrin Ferritin Total Bilirubin AST ALT Alkaline Phosphatase Ammonia Troponin I 0.03 H* C-Reactive Protein 114.42 H B-Natriuretic Peptide Total Protein Albumin Globulin Albumin/Globulin Ratio TSH Free T4 Urine Color Yellow Urine Appearance Cloudy Urine pH 5.0 Ur Specific [place] 1.016 Urine Protein 1+(30 mg/dl) A Urine Ketones Negative Urine Blood Negative Urine Nitrate Negative Urine Bilirubin Negative Urine Urobilinogen Negative Ur Leukocyte Esterase 3+ A Urine WBC (Auto) 3+(>20/hpf) A Urine RBC (Auto) Absent Ur Squamous Epith Cells Present A Urine Bacteria 1+ A Hyaline Casts Present A Urine Glucose Negative Urine Ascorbic Acid * A 10/01/19 10/01/19 10/01/19 16:50 17:23 18:45 WBC RBC Hgb Hct MCV MCH MCHC RDW Plt Count MPV Neut % (Auto) Lymph % (Auto) [place] % (Auto) Eos % (Auto) Baso % (Auto) Absolute Neuts (auto) Absolute Lymphs (auto) Absolute Monos (auto) Absolute Eos (auto) Absolute Basos (auto) Absolute Nucleated RBC Nucleated RBC % INR (Anticoag Therapy) D-Dimer, Quantitative 388 H Sodium Potassium Chloride Carbon Dioxide Anion Gap BUN Creatinine Est GFR ( Amer) Est GFR (Non-Af Amer) BUN/Creatinine Ratio Glucose Lactic Acid 0.9 Calcium Iron TIBC % Saturation Unsat Iron Binding Transferrin Ferritin Total Bilirubin AST ALT Alkaline Phosphatase Ammonia 73 H Troponin I C-Reactive Protein B-Natriuretic Peptide Total Protein Albumin Globulin Albumin/Globulin Ratio TSH Free T4 Urine Color Urine Appearance Urine pH Ur Specific [place] Urine Protein Urine Ketones Urine Blood Urine Nitrate Urine Bilirubin Urine Urobilinogen Ur Leukocyte Esterase Urine WBC (Auto) Urine RBC (Auto) Ur Squamous Epith Cells Urine Bacteria Hyaline Casts Urine Glucose Urine Ascorbic Acid 10/02/19 10/02/19 10/02/19 00:38 00:38 05:50 WBC 9.3 8.6 RBC 3.51 L 3.64 L Hgb 9.7 L 10.0 L Hct 30 L 31 L MCV 85 84 MCH 28 27 MCHC 32 33 RDW 19 H 18 H Plt Count 270 281 MPV 7.5 7.4 Neut % (Auto) 69.7 Lymph % (Auto) 17.8 [place] % (Auto) 11.6 Eos % (Auto) 0.5 Baso % (Auto) 0.4 Absolute Neuts (auto) 6.0 Absolute Lymphs (auto) 1.5 Absolute Monos (auto) 1.0 H Absolute Eos (auto) 0.0 Absolute Basos (auto) 0.0 Absolute Nucleated RBC 0.0 Nucleated RBC % 0.1 INR (Anticoag Therapy) D-Dimer, Quantitative Sodium 137 Potassium 3.8 Chloride 102 Carbon Dioxide 32 Anion Gap 3 BUN 26 H Creatinine 0.97 H Est GFR ( Amer) 69.5 Est GFR (Non-Af Amer) 57.5 BUN/Creatinine Ratio 26.8 H Glucose 93 Lactic Acid Calcium 7.4 L Iron TIBC % Saturation Unsat Iron Binding Transferrin Ferritin Total Bilirubin AST ALT Alkaline Phosphatase Ammonia Troponin I 0.05 H* C-Reactive Protein B-Natriuretic Peptide Total Protein Albumin Globulin Albumin/Globulin Ratio TSH Free T4 Urine Color Urine Appearance Urine pH Ur Specific [place] Urine Protein Urine Ketones Urine Blood Urine Nitrate Urine Bilirubin Urine Urobilinogen Ur Leukocyte Esterase Urine WBC (Auto) Urine RBC (Auto) Ur Squamous Epith Cells Urine Bacteria Hyaline Casts Urine Glucose Urine Ascorbic Acid 10/02/19 10/02/19 05:50 05:50 WBC RBC Hgb Hct MCV MCH MCHC RDW Plt Count MPV Neut % (Auto) Lymph % (Auto) [place] % (Auto) Eos % (Auto) Baso % (Auto) Absolute Neuts (auto) Absolute Lymphs (auto) Absolute Monos (auto) Absolute Eos (auto) Absolute Basos (auto) Absolute Nucleated RBC Nucleated RBC % INR (Anticoag Therapy) 2.14 H D-Dimer, Quantitative Sodium 139 Potassium 4.3 Chloride 103 Carbon Dioxide 34 H Anion Gap 2 BUN 20 Creatinine 0.78 Est GFR ( Amer) 89.4 Est GFR (Non-Af Amer) 73.9 BUN/Creatinine Ratio 25.6 H Glucose 114 H Lactic Acid Calcium 7.7 L Iron TIBC % Saturation Unsat Iron Binding Transferrin Ferritin Total Bilirubin AST ALT Alkaline Phosphatase Ammonia Troponin I C-Reactive Protein B-Natriuretic Peptide Total Protein Albumin Globulin Albumin/Globulin Ratio TSH Free T4 Urine Color Urine Appearance Urine pH Ur Specific [place] Urine Protein Urine Ketones Urine Blood Urine Nitrate Urine Bilirubin Urine Urobilinogen Ur Leukocyte Esterase Urine WBC (Auto) Urine RBC (Auto) Ur Squamous Epith Cells Urine Bacteria Hyaline Casts Urine Glucose Urine Ascorbic Acid Studies: CXR: consistent with CHF Nutrition: Heart Healthy Diet Impression: Unclear as to etiology of low BP yesterday, but normal lactate makes septic shock highly unlikely. Patient could have a UTI (? urosepsis), but CXR is more consistent with CHF than pneumonia. Patient is confused but not agitated, and this is apparently a chronic condition Plan: Continue antibiotic Rx (PIP/TAZO) pending results of blood and urine cultures. Will transfer out of ICU today. Critical Care Time: 30 minutes
[2019-10-02] MEDS: Warfarin TAB(*) 2 MG PO SCH (16:35)
[2019-10-03] MEDS: ZOSYN 3.375 GM Q8H per EXTENDED INFUSION IVPB SCH ×6 (05:52→22:43)
[2019-10-03] MEDS: Levothyroxine TAB* 100 MCG TAB PO SCH (06:03)
[2019-10-03 07:15] LABS: ABS Eosinophils 0.1 10^3/ul (0-0.6); ABS Lymphocytes 1.2 10^3/ul (1.0-4.8); ABS Monocytes 1.4 10^3/ul (0-0.8); ABS Neutrophils 3.3 10^3/ul (1.5-7.7); Eosinophil % 2.3 %; Hematocrit 31 % (35-47); Hemoglobin 10.2 g/dL (12.0-16.0); Lymphocyte % 20.4 %; Mean Corpuscular HGB Conc 33 g/dL (31-36); Mean Corpuscular Hemoglobin 28 pg (27-31); Mean Corpuscular Volume 84 fL (80-97); Mean Platelet Volume 7.7 fL (7.4-10.4); Nucleated Red Blood Cells % 0.1; Platelet Count 246 10^3/uL (150-450); Red Blood Count 3.66 10^6 /uL (3.70-4.87); Red Cell Distribution Width 18 % (10-15); White Blood Count 6.1 10^3/uL (3.5-10.8)
[2019-10-03 07:21] LABS: INR 2.16 (0.82-1.09)
[2019-10-03 07:26] LABS: BUN/Creatinine Ratio 25.5 (8-20); Calcium 8.3 mg/dL (8.6-10.3); EGFR Non-African American 120.7 (>60); Potassium 3.8 mmol/L (3.5-5.0)
[2019-10-03 07:29] LABS: BUN/Creatinine Ratio 26.5 (8-20); Calcium 8.3 mg/dL (8.6-10.3); EGFR African American 152.9 (>60); EGFR Non-African American 126.4 (>60); Potassium 3.8 mmol/L (3.5-5.0)
[2019-10-03] MEDS: Mometasone/Formoter 200/5 MDI INH SCH ×2 (07:53→19:17)
[2019-10-03] MEDS: Venlafaxine EXT RELEASE CAP* 75 MG PO SCH ×2 (09:58→22:43)
[2019-10-03] MEDS: rOPINIRole TAB* 1 MG PO SCH (09:59)
[2019-10-03] MEDS: Cyanocobalamin TAB* 500 MCG PO SCH (10:00)
[2019-10-03] MEDS: Nystatin TOP POWDER* 15 GM BTL TOPICAL SCH ×2 (10:00→23:08)
[2019-10-03] MEDS: Montelukast Sodium TAB* 10 MG PO SCH (10:00)
[2019-10-03] MEDS: Memantine TAB* 10 MG PO SCH ×2 (10:00→22:43)
[2019-10-03] MEDS: SOLIFENACIN 10 MG PO SCH (10:15)
[2019-10-03] MEDS ORDERED: traZODone TAB* 100 MG PO PRN (11:52)
--- NOTE | 2019-10-03 12:55 | PN ---
Subjective Date of Service: 10/03/19 Interval History: Renetta was confused overnight and this morning. This morning she was proclaiming that she was leaving and trying to walk out. When I came to see her she was easily redirectable and expressed understanding of the importance of staying in the hospital at this time. I came back to see her when her arrived, and he feels that she is at her baseline mental status. He has no concerns other than her being off the trazodone. He suspects that is why she sundowned last night. Objective Active Medications: Cyanocobalamin (Vitamin B12 Tab*) 500 mcg PO DAILY [facility] Last Admin: 10/03/19 10:00 Dose: 500 mcg Hydromorphone HCl (Dilaudid Tab*) 4 mg PO TID PRN PRN Reason: PAIN - SEVERE Piperacillin Sod/Tazobactam (Sod 3.375 gm/ Sodium Chloride) 100 mls @ 25 mls/ hr IVPB Q8H [facility] Last Admin: 10/03/19 05:52 Dose: 25 mls/hr Levalbuterol HCl (Xopenex Hfa Inhaler*) 2 puff INH QID PRN PRN Reason: SOB/WHEEZING Levothyroxine Sodium (Synthroid Tab*) 200 mcg PO 0600 [facility] Last Admin: 10/03/19 06:03 Dose: 200 mcg Memantine (Namenda Tab*) 10 mg PO BID [facility] Last Admin: 10/03/19 10:00 Dose: 10 mg Mometasone Furoate/Formoterol Fumar (Dulera 200/5 Mdi*) 2 puff INH BID [facility] Last Admin: 10/03/19 07:53 Dose: 2 puff Montelukast Sodium (Singulair Tab*) 10 mg PO DAILY [facility] Last Admin: 10/03/19 10:00 Dose: 10 mg Nystatin (Nystatin Top Powder*) 1 applic TOPICAL BID [facility] Last Admin: 10/03/19 10:00 Dose: 1 applic Pharmacy Consult (Zosyn Per Pharmacy*) 1 note FOLLOW UP .ZOSYN PER PHARMACY [facility] Ropinirole HCl (Requip Tab*) 2 mg PO DAILY [facility] Last Admin: 10/03/19 09:59 Dose: 2 mg Solifenacin (Vesicare(Nf)) 10 mg PO DAILY [facility] Last Admin: 10/03/19 10:15 Dose: Not Given Trazodone HCl (Desyrel Tab*) 150 mg PO BEDTIME PRN PRN Reason: ANXIETY Venlafaxine HCl (Effexor Xr Cap*) 150 mg PO BID [facility] Last Admin: 10/03/19 09:58 Dose: 150 mg Warfarin Sodium (Coumadin Tab(*)) 2 mg PO DAILY@1700 [facility]; Protocol Last Admin: 10/02/19 16:35 Dose: 2 mg Vital Signs - 8 hr 10/03/19 10/03/19 10/03/19 07:15 07:53 08:00 Temperature 97.2 F Pulse Rate 88 90 Respiratory 20 16 20 Rate Blood Pressure 120/62 (mmHg) O2 Sat by Pulse 95 94 Oximetry 10/03/19 11:15 Temperature 98.0 F Pulse Rate 84 Respiratory 20 Rate Blood Pressure 130/67 (mmHg) O2 Sat by Pulse 96 Oximetry Oxygen Devices in Use Now: Nasal Cannula Appearance: alert, occasionally confused with poor short term memory, but good extermination supervisor recall, appropriate comprehension Eyes: No Scleral Icterus Ears/Nose/Mouth/Throat: NL Teeth, Lips, Gums Neck: NL Appearance and Movements; NL JVP Respiratory: Symmetrical Chest Expansion and Respiratory Effort Cardiovascular: NL Sounds; No Murmurs; No JVD, RRR Abdominal: NL Sounds; No Tenderness; No Distention, - - hutson in place Lymphatic: No Cervical Adenopathy Extremities: No Edema Result Diagrams: 10/03/19 06:47 10/03/19 06:48 Microbiology and Other Data: Microbiology 10/01/19 22:35 Urine Culture - Final Urine 10/01/19 18:45 Aerobic Blood Culture - Preliminary Blood Venous No Growth Day 1 Anaerobic Blood Culture - Preliminary No Growth Day 1 10/01/19 17:23 Aerobic Blood Culture - Preliminary Blood Venous No Growth Day 1 Anaerobic Blood Culture - Preliminary No Growth Day 1 Assess/Plan/Problems-Billing Assessment: This is a 64 year old woman with history of spinal surgeries that left her wheelchair bound x 30 years, neurogenic bladder, recurrent UTIs, dementia, and PE who presented on 10/01 with lethargy and falling out of bed. her course was complicated by hypotension requiring pressors in the ICU. - Patient Problems (1) Complicated UTI (urinary tract infection) Current Visit: Yes Status: Acute Code(s): N39.0 - URINARY TRACT INFECTION, SITE NOT SPECIFIED SNOMED Code(s): 58799840 Comment: continue zosyn for now awaiting culture. discussed with micro lab; will result tomorrow morning histoyr of reccurent UTIs and abx, so will await culture before dishcarge; explained to her and who agree (2) Septic shock Current Visit: Yes Status: Acute Code(s): A41.9 - SEPSIS, UNSPECIFIED ORGANISM; R65.21 - SEVERE SEPSIS WITH SEPTIC SHOCK SNOMED Code(s): 33296893 Comment: resolved required pressors in the ICU, with hypotension, fever, tachycardia now normotensive (3) Neurogenic bladder Current Visit: Yes Status: Acute Code(s): N31.9 - NEUROMUSCULAR DYSFUNCTION OF BLADDER, UNSPECIFIED SNOMED Code(s): 257739183 Comment: the reason for hutson insertion this hospitalization is not clearly documented and no PVR was documented we will give voiding trial today history is complicated; she has followed with urology for many years, was recommended to straight cath but she has declined but unclear how successful this has been. says she always retains but unknown amount. no urology records here. (4) CATY (acute kidney injury) Current Visit: No Status: Acute Code(s): N17.9 - ACUTE KIDNEY FAILURE, UNSPECIFIED SNOMED Code(s): 16577538 Comment: Resolved. (5) Altered mental state Current Visit: No Status: Acute Code(s): R41.82 - ALTERED MENTAL STATUS, UNSPECIFIED SNOMED Code(s): 668095724 Comment: Resolved. Yeniferley related to UTI there was concern that trazodone was contributing, but she and her insist that this is essential and she has been on it for many years. Her PCP resumed it after she left [facility] last week. Will resume for tonight. Status and Disposition: inpatient pending urine micro, voiding trial
[2019-10-03] MEDS: HYDROmorphone TAB* 4 MG PO PRN ×2 (13:44→22:51)
[2019-10-03] MEDS: Warfarin TAB(*) 2 MG PO SCH (16:35)
[2019-10-04] MEDS: Levothyroxine TAB* 100 MCG TAB PO SCH (04:39)
[2019-10-04] MEDS: ZOSYN 3.375 GM Q8H per EXTENDED INFUSION IVPB SCH ×2 (04:40)
[2019-10-04 06:37] LABS: ABS Eosinophils 0.1 10^3/ul (0-0.6); ABS Lymphocytes 1.5 10^3/ul (1.0-4.8); ABS Monocytes 1.3 10^3/ul (0-0.8); ABS Neutrophils 2.5 10^3/ul (1.5-7.7); Eosinophil % 1.8 %; Hematocrit 32 % (35-47); Hemoglobin 10.2 g/dL (12.0-16.0); Mean Corpuscular HGB Conc 32 g/dL (31-36); Mean Corpuscular Hemoglobin 27 pg (27-31); Mean Corpuscular Volume 83 fL (80-97); Mean Platelet Volume 7.7 fL (7.4-10.4); Nucleated Red Blood Cells % 0.1; Platelet Count 247 10^3/uL (150-450); Red Blood Count 3.81 10^6 /uL (3.70-4.87); Red Cell Distribution Width 18 % (10-15); White Blood Count 5.4 10^3/uL (3.5-10.8)
[2019-10-04 06:46] LABS: INR 2.39 (0.82-1.09)
[2019-10-04 06:53] LABS: BUN/Creatinine Ratio 20.4 (8-20); Calcium 8.5 mg/dL (8.6-10.3); EGFR African American 152.9 (>60); EGFR Non-African American 126.4 (>60); Potassium 3.5 mmol/L (3.5-5.0)
[2019-10-04] MEDS: Mometasone/Formoter 200/5 MDI INH SCH (08:23)
[2019-10-04] MEDS: Venlafaxine EXT RELEASE CAP* 75 MG PO SCH (10:52)
[2019-10-04] MEDS: Montelukast Sodium TAB* 10 MG PO SCH (10:52)
[2019-10-04] MEDS: Memantine TAB* 10 MG PO SCH (10:53)
[2019-10-04] MEDS: HYDROmorphone TAB* 4 MG PO PRN (10:53)
[2019-10-04 10:54] VITALS: BP 150/77
[2019-10-04] MEDS: Cyanocobalamin TAB* 500 MCG PO SCH (10:54)
[2019-10-04] MEDS: Nystatin TOP POWDER* 15 GM BTL TOPICAL SCH (10:55)
[2019-10-04] MEDS: SOLIFENACIN 10 MG PO SCH (10:56)
[2019-10-04] MEDS: rOPINIRole TAB* 1 MG PO SCH (11:15)
--- NOTE | 2019-10-04 21:56 | EEG ---
ELECTROENCEPHALOGRAPHY REPORT: DATE OF STUDY: 10/04/19 DATE OF DICTATION: 10/04/19. PATIENT OF: Dr. Hollingsworth. CLINICAL PROBLEM: This is a 64-year-old woman because of a confusional episode. MEDICATIONS: Include: 1. B12. 2. Namenda. 3. Dulera. 4. Singulair. 5. Nystatin. 6. ReQuip. 7. Effexor. 8. Zosyn. 9. Coumadin. 10. Synthroid. 11. Dilaudid. 12. Xopenex. 13. Desyrel. REPORT: With the patient awake, background cerebral activity consists of moderate amplitude posterior dominant 9 Hz rhythm. Occasionally, there is some swelling into the theta range. The patient never falls asleep. No epileptiform potentials, focal abnormalities, or major asymmetries of background are noted. CLINICAL IMPRESSION: This awake EEG shows no major abnormalities. The slight slowing into the theta range may be secondary to drowsiness or mild encephalopathy and nonspecific ST etiology. [id number]/[facility] #: [id number] [facility] CENTERAshley
--- NOTE | 2019-10-05 07:01 | DS ---
CC: Dr. Tijerina* DISCHARGE SUMMARY: DATE OF ADMISSION: 10/01/19 DATE OF DISCHARGE: 10/04/19 PRIMARY CARE PHYSICIAN: Dr. Tijerina. PRINCIPAL DISCHARGE DIAGNOSES: 1. Altered mental status. 2. Hypotension. 3. Systemic inflammatory response syndrome with an unclear source. 4. Dementia. 5. Urinary retention. 6. Acute kidney injury. SECONDARY DISCHARGE DIAGNOSES: 1. Chronic hypoxic respiratory failure. 2. Obstructive sleep apnea. 3. Neurogenic bladder. 4. Pulmonary embolism, on anticoagulation. 5. Wheelchair bound. PHYSICAL EXAMINATION: At discharge, temperature 98.2, heart rate 88, respiratory rate 17, pulse ox 90% on room air, blood pressure 150/77. General: Alert, well- appearing elderly female, in no distress. HEENT: Pupils are equal, round, reactive to light. Oral mucosa is moist. Neck: No JVP. No adenopathy. Chest: She is in a regular rate and rhythm with no murmurs. Her lungs are clear bilaterally. Abdomen: Obese, soft, nontender, nondistended. No guarding or rebound. Extremities: No edema, rashes or ulcers. Psych: She is oriented and appropriate. Her speech is fluent and accurate, and she responds appropriately to specific questions and expresses good comprehension of her hospitalization and discharge plan. PERTINENT IMAGING: On this admission, a brain CT from 10/01/19, shows no acute intracranial abnormality. A chest x-ray from 10/02/19 shows a right neck central line with a tip terminating at the SVC and cardiogenic pulmonary edema. HOSPITAL COURSE BY PROBLEM: 1. Altered mental status. Ms. Ruiz was admitted with confusion from home that her noted. She has a history of dementia and a recent admission for septic shock from presumed aspiration pneumonia. So at admission, she was worked up for an infectious cause of her altered mental status, which was not particularly clear as I will discuss below; however, throughout her hospitalization with antibiotic her mental status returned to baseline and at the time of discharge, her mental status is very clear and appropriate. 2. Hypotension. She developed hypotension in the evening after admission and required transfer to the ICU for central line placement and pressor support. She required Levophed for a short period of time and continued to be treated for a presumed infectious source. Her blood pressure resolved after a short course of Levophed and she was transferred back to the floor where she remains normotensive for the remainder of her hospitalization. 3. SIRS with an unclear source. At the time of admission, there was some concern for an infiltrate on her x-ray; however, she has no pulmonary complaints. Her urinalysis had leukocytes and leukocyte esterase present; however, it is noted that she has a neurogenic bladder and frequent UTI, so this was difficult to interpret. At admission, she was started on broad- spectrum antibiotics to cover pneumonia and a UTI. Her cultures were followed and her blood cultures remained negative. Her urine culture had no growth and at this point the source remains unclear. She has received 4-1/2 days of IV antibiotics for community-acquired pneumonia at the time of discharge; however, I am a little more suspicious of a urinary source given her prominent urinary history with neurogenic bladder and frequent UTIs, delirium, and no localizing symptoms, especially to the chest. So, I discharged her on 2 more days of Macrobid to complete the urinary course despite her urine culture growing no organism. In addition to unconvincing x-rays, urinalysis, and symptoms, her lactic acid was never elevated and she never had a leukocytosis during this admission. Of note, she did have a low-grade temperature of 100.4 via the Ca probe and her maximum heart rate was 91, which qualified her for SIRS. 4. Urinary retention. A Ca catheter was placed for acute urinary retention ; however, on 10/03/19, a voiding trial was allowed. Her postvoid residual was 82 cc of urine. So, Ca catheter remained out. She follows with a urologist in [place]. 5. Acute kidney injury. Resolved with IV fluids. 6. Dementia. Again, she returned to her baseline by the time of discharge. 7. Chronic hypoxic respiratory failure. She remained on her home O2 requirement of 3 L p.r.n. 8. Neurogenic bladder. As discussed above, she did require a Ca catheter during acute illness, but after her illness resolved, she passed a voiding trial. 9. Pulmonary embolism, on anticoagulation. Her INR was subtherapeutic at the time of admission on 1 mg of warfarin daily. So, we increased it to 2 mg daily and she is being discharged on this dose. 10. Wheelchair bound. This is related to history of spinal injuries and surgeries. She has all of the supplies that she needs at home including an electric scooter, and she and her were both comfortable with returning to home at the time of discharge. CONDITION AT THE TIME OF DISCHARGE: Stable. DISPOSITION: Ms. Ruiz is being discharged to home with her on . They will follow up with her primary care provider within 1 week. She has been educated about reasons to return to the emergency department included but not limited to worsening confusion, falls, fevers, cough, bleeding, shortness of breath, chest pain or any other new symptoms. [id number]/[facility] #: [id number] DANDRE
== END 2019-10-04 15:05 | disposition home or self-care (01) | DRG 871 ==
LOC: ED 11:45 → ICU 16:38 → MED 10-02 14:55
PROVIDERS: ADMIT Internal Medicine; ATTEND Internal Medicine
PROC: 02HV33Z Insertion of Infusion Device into Superior Vena Cava, Percutaneous Approach (ICD-10-PCS; principal; 2019-10-01)
PROC: 5A09357 Assistance with Respiratory Ventilation, Less than 24 Consecutive Hours, Continuous Positive Airway Pressure (ICD-10-PCS; 2019-10-01)
PROC: 4A00X4Z Measurement of Central Nervous Electrical Activity, External Approach (ICD-10-PCS; 2019-10-04)
DX: A41.9 Sepsis, unspecified organism (principal); R65.21 Severe sepsis with septic shock; N17.9 Acute kidney failure, unspecified; J96.11 Chronic respiratory failure with hypoxia; F05 Delirium due to known physiological condition; N39.0 Urinary tract infection, site not specified; N31.9 Neuromuscular dysfunction of bladder, unspecified; M79.7 Fibromyalgia; G47.33 Obstructive sleep apnea (adult) (pediatric); J45.909 Unspecified asthma, uncomplicated; E03.9 Hypothyroidism, unspecified; G25.81 Restless legs syndrome; F03.90 Unspecified dementia, unspecified severity, without behavioral disturbance, psychotic disturbance, mood disturbance, and anxiety; I95.9 Hypotension, unspecified; F32.9 Major depressive disorder, single episode, unspecified; D64.9 Anemia, unspecified; R79.89 Other specified abnormal findings of blood chemistry; I10 Essential (primary) hypertension; R33.9 Retention of urine, unspecified; J44.9 Chronic obstructive pulmonary disease, unspecified; Z87.440 Personal history of urinary (tract) infections; Z99.3 Dependence on wheelchair; Z91.5 Personal history of self-harm; Z86.711 Personal history of pulmonary embolism; Z88.6 Allergy status to analgesic agent; Z86.718 Personal history of other venous thrombosis and embolism; Z28.21 Immunization not carried out because of patient refusal
CPT/HCPCS: 36415; 70450; 71045; 80048; 80053; 81003; 81015; 82140; 82728; 83540; 83550; 83605; 83880; 84439; 84443; 84484; 85025; 85027; 85379; 85610; 86140; 87040; 87086; 93005; 94640; 94660; 95816; 96365; 96375; 99285; A9270-GY; J0456; J0696; J2543

== ENCOUNTER 2021-05-18 21:33 | Inpatient (IN) ==
[2021-05-18 23:46] LABS: PO2 Arterial 127 mmHg (80-100)
[2021-05-18 23:50] LABS: PCO2 Arterial 97 mmHg (35-45)
[2021-05-18 23:52] LABS: ABS Basophils 0.1 10^3/ul (0-0.2); ABS Lymphocytes 1.6 10^3/ul (1.0-4.8); ABS Monocytes 1.2 10^3/ul (0-0.8); ABS Neutrophils 14.2 10^3/ul (1.5-7.7); Hematocrit 28 % (35-47); Hemoglobin 8.5 g/dL (12.0-16.0); Lymphocyte % 9.5 %; Mean Corpuscular HGB Conc 30 g/dL (31-36); Mean Corpuscular Hemoglobin 23 pg (27-31); Mean Corpuscular Volume 77 fL (80-97); Nucleated Red Blood Cells % 0.1; Platelet Count 340 10^3/uL (150-450); Red Blood Count 3.61 10^6 /uL (3.70-4.87); Red Cell Distribution Width 24 % (10-15); White Blood Count 17.1 10^3/uL (3.5-10.8)
[2021-05-19 00:07] LABS: Alcohol, S < 13 mg/dL (<10)
[2021-05-19 00:08] LABS: ALT 20 U/L (7-52); AST 30 U/L (13-39); Albumin/Globulin Ratio 0.8 (1-3); Alkaline Phosphatase 68 U/L (35-149); Blood Urea Nitrogen 23 mg/dL (6-24); CO2 Carbon Dioxide 40 mmol/L (22-32); Calcium 8.5 mg/dL (8.6-10.3); Chloride 79 mmol/L (101-111); Creatine Kinase 210 U/L (10-223); EGFR African American 49.3 (>60); EGFR Non-African American 40.7 (>60); Globulin 3.7 g/dL (2-4); Glucose 105 mg/dL (70-100); Potassium 4.6 mmol/L (3.5-5.0); Total Protein 6.7 g/dL (6.4-8.9)
[2021-05-19 00:09] LABS: INR 3.02 (0.86-1.15)
[2021-05-19] MEDS ORDERED: Albuterol HFA INHALER 8 gm MDI INH ONE (00:13)
[2021-05-19] MEDS ORDERED: Ipratropium HFA INHALER(NF) (ALTERNATIVE = NEBS) INH ONE (00:13)
[2021-05-19] MEDS ORDERED: Dexamethasone IV 10 MG in NS 0.9% 50 ML 50 ML IVPB ONE (00:13)
[2021-05-19 00:31] LABS: Sodium 118 mmol/L (135-145)
[2021-05-19 01:19] LABS: Urine Appearance Turbid; Urine Bilirubin Negative (Negative); Urine Blood Negative (Negative); Urine Color Amber; Urine Glucose Negative (Negative); Urine Ketones Negative (Negative); Urine Nitrite Negative (Negative); Urine Protein 2+(100 mg/dL) (Negative); Urine Specific Gravity 1.015 (1.002-1.030); Urine Urobilinogen Negative (Negative)
[2021-05-19 01:40] LABS: PO2 Arterial 81 mmHg (80-100)
[2021-05-19 01:42] LABS: PCO2 Arterial 106 mmHg (35-45)
[2021-05-19 01:45] LABS: Urine Bacteria 1+ (Absent); Urine Red Blood Cell 2+(6-10/hpf) (Absent); Urine White Blood Cell 3+(>20/hpf) (Absent)
[2021-05-19] MEDS ORDERED: Albuterol/Ipratropium NEB.SOL (2.5/0.5 MG) 3 ML NEB.SOLN INH ONE ×3 (01:58→06:57)
[2021-05-19 03:06] LABS: PO2 Arterial 82 mmHg (80-100)
[2021-05-19 03:15] LABS: PCO2 Arterial 100 mmHg (35-45)
[2021-05-19] MEDS ORDERED: cefTRIAXone 1 gm/50 mL NS BAG 1 GM/50 ML BAG IVPB SCH (03:23)
[2021-05-19] MEDS ORDERED: Warfarin per PHARMACY **NOTE FOLLOW UP SCH (04:00)
[2021-05-19 04:12] LABS: C Reactive Protein 117.54 mg/L (<8.01)
[2021-05-19 04:46] LABS: Ferritin 16.5 ng/mL (11-307)
[2021-05-19] MEDS ORDERED: Piperacillin/Tazobac ADVAN 3.375 GM in NS 0.9% 100 ml BAG 100 ML IV ONE (05:55)
[2021-05-19 06:18] LABS: PO2 Arterial 84 mmHg (80-100)
[2021-05-19 06:27] LABS: PCO2 Arterial 92 mmHg (35-45)
[2021-05-19] MEDS ORDERED: Levalbuterol HFA INHALER MDI INH PRN (08:01)
[2021-05-19 08:28] LABS: PO2 Arterial 141 mmHg (80-100)
[2021-05-19 08:37] LABS: PCO2 Arterial 81 mmHg (35-45)
[2021-05-19] MEDS ORDERED: Mometasone/Formoter 200/5 MDI INH SCH (09:00)
[2021-05-19] MEDS ORDERED: Solifenacin 10 mg TAB (NF) PO SCH (09:00)
[2021-05-19] MEDS ORDERED: Fexofenadine 180 mg TAB (NF) PO SCH (09:00)
[2021-05-19] MEDS: Venlafaxine XR 75 mg PO SCH ×2 (09:55→22:10)
[2021-05-19] MEDS ORDERED: methylPREDNISolone 125 mg 2 ML VIAL IV ONE (09:57)
[2021-05-19] MEDS ORDERED: Albuterol HFA INHALER 8 gm MDI INH PRN (09:59)
[2021-05-19] MEDS: cefTRIAXone 1 gm/50 mL NS BAG 1 GM/50 ML BAG IVPB SCH (10:43)
[2021-05-19 11:36] LABS: Albumin 3.1 g/dL (3.2-5.2); Albumin/Globulin Ratio 0.8 (1-3); Calcium 8.6 mg/dL (8.6-10.3); EGFR African American 63.8 (>60); EGFR Non-African American 52.7 (>60); Magnesium 1.5 mg/dL (1.9-2.7); Phosphorus 4.2 mg/dL (2.5-5.0); Total Bilirubin 0.2 mg/dL (0.2-1.0); Total Protein 7.1 g/dL (6.4-8.9)
[2021-05-19 11:37] LABS: Potassium 5.1 mmol/L (3.5-5.0)
[2021-05-19 11:40] LABS: ABS Lymphocytes 0.6 10^3/ul (1.0-4.8); ABS Monocytes 0.3 10^3/ul (0-0.8); ABS Neutrophils 11.2 10^3/ul (1.5-7.7); Eosinophil % 0.1 %; Hematocrit 28 % (35-47); Hemoglobin 8.8 g/dL (12.0-16.0); Lymphocyte % 4.8 %; Mean Corpuscular HGB Conc 31 g/dL (31-36); Mean Corpuscular Hemoglobin 24 pg (27-31); Mean Corpuscular Volume 77 fL (80-97); Mean Platelet Volume 6.9 fL (7.4-10.4); Platelet Count 323 10^3/uL (150-450); Red Blood Count 3.71 10^6 /uL (3.70-4.87); Red Cell Distribution Width 24 % (10-15); White Blood Count 12.1 10^3/uL (3.5-10.8)
[2021-05-19] MEDS ORDERED: Zosyn per Pharmacy NOTE FOLLOW UP SCH (12:00)
[2021-05-19] MEDS: Azithromycin 500 mg/250 ml NS 500 MG/250 ML BAG IVPB SCH (12:20)
[2021-05-19 14:22] LABS: PO2 Arterial 69 mmHg (80-100)
[2021-05-19 14:28] LABS: PCO2 Arterial 74 mmHg (35-45)
[2021-05-19] MEDS: Nystatin TOP POWDER 15 GM BTL TOPICAL SCH ×3 (15:32→21:07)
[2021-05-19] MEDS ORDERED: Magnesium Sulf 4 GM/100 ML IV 4,000 MG/100 ML BAG IVPB ONE (15:46)
[2021-05-19] MEDS: Warfarin DAILY REMINDER **NOTE FOLLOW UP SCH (17:37)
[2021-05-19] MEDS: methylPREDNISolone SOD 40 mg/ml 1 ml VIAL IV SCH (22:10)
[2021-05-19 22:52] LABS: Blood Urea Nitrogen 21 mg/dL (6-24); CO2 Carbon Dioxide 39 mmol/L (22-32); Calcium 8.8 mg/dL (8.6-10.3); Chloride 79 mmol/L (101-111); EGFR African American 86.3 (>60); EGFR Non-African American 71.3 (>60); Glucose 105 mg/dL (70-100); Sodium 122 mmol/L (135-145)
[2021-05-19 23:04] LABS: Anion Gap 4 mmol/L (2-11)
[2021-05-20] MEDS: methylPREDNISolone SOD 40 mg/ml 1 ml VIAL IV SCH ×3 (06:15→17:42)
[2021-05-20 06:37] LABS: Hematocrit 30 % (35-47); Hemoglobin 9.2 g/dL (12.0-16.0); Mean Corpuscular HGB Conc 31 g/dL (31-36); Mean Corpuscular Hemoglobin 24 pg (27-31); Mean Corpuscular Volume 77 fL (80-97); Mean Platelet Volume 6.7 fL (7.4-10.4); Platelet Count 359 10^3/uL (150-450); Red Blood Count 3.92 10^6 /uL (3.70-4.87); Red Cell Distribution Width 23 % (10-15); White Blood Count 9.2 10^3/uL (3.5-10.8)
[2021-05-20 06:44] LABS: INR 3.59 (0.86-1.15)
[2021-05-20 06:52] LABS: EGFR African American 94.4 (>60); Phosphorus 3.1 mg/dL (2.5-5.0); Potassium 4.7 mmol/L (3.5-5.0)
[2021-05-20] MEDS: Venlafaxine XR 75 mg PO SCH ×2 (09:29→21:00)
[2021-05-20] MEDS: Nystatin TOP POWDER 15 GM BTL TOPICAL SCH ×4 (09:30→21:00)
[2021-05-20] MEDS: cefTRIAXone 1 gm/50 mL NS BAG 1 GM/50 ML BAG IVPB SCH (10:27)
[2021-05-20] MEDS: Azithromycin 500 mg/250 ml NS 500 MG/250 ML BAG IVPB SCH (11:30)
[2021-05-20] MEDS ORDERED: Albuterol/Ipratropium NEB.SOL (2.5/0.5 MG) 3 ML NEB.SOLN INH SCH (14:00)
[2021-05-20] MEDS ORDERED: Haloperidol 5 mg/ml SDV IV/IM 5 MG/ML AMP IV SLOW PU PRN (16:32)
[2021-05-20] MEDS ORDERED: Warfarin - No Order Today **NOTE FOLLOW UP ONE (17:00)
[2021-05-20] MEDS: Warfarin DAILY REMINDER **NOTE FOLLOW UP SCH (19:33)
[2021-05-20] MEDS: Albuterol/Ipratropium NEB.SOL (2.5/0.5 MG) 3 ML NEB.SOLN INH SCH ×2 (20:17→22:49)
[2021-05-21] MEDS: Albuterol/Ipratropium NEB.SOL (2.5/0.5 MG) 3 ML NEB.SOLN INH SCH ×2 (02:57→07:32)
[2021-05-21 04:45] LABS: ABS Basophils 0.1 10^3/ul (0-0.2); ABS Lymphocytes 1.1 10^3/ul (1.0-4.8); ABS Monocytes 1.1 10^3/ul (0-0.8); ABS Neutrophils 8.3 10^3/ul (1.5-7.7); Hematocrit 30 % (35-47); Hemoglobin 9.5 g/dL (12.0-16.0); Lymphocyte % 10.3 %; Mean Corpuscular HGB Conc 32 g/dL (31-36); Mean Corpuscular Hemoglobin 24 pg (27-31); Mean Corpuscular Volume 76 fL (80-97); Mean Platelet Volume 6.8 fL (7.4-10.4); Platelet Count 366 10^3/uL (150-450); Red Blood Count 3.91 10^6 /uL (3.70-4.87); Red Cell Distribution Width 23 % (10-15); White Blood Count 10.6 10^3/uL (3.5-10.8)
[2021-05-21 04:51] LABS: INR 3.59 (0.86-1.15)
[2021-05-21 04:58] LABS: EGFR African American 102.4 (>60); EGFR Non-African American 84.6 (>60); Magnesium 1.5 mg/dL (1.9-2.7); Phosphorus 3.3 mg/dL (2.5-5.0); Potassium 4.4 mmol/L (3.5-5.0)
[2021-05-21] MEDS: methylPREDNISolone SOD 40 mg/ml 1 ml VIAL IV SCH (05:36)
[2021-05-21] MEDS ORDERED: Magnesium Sulfate IV 3 GM in NS 0.9% 100 ml BAG 100 ML IVPB ONE (07:17)
[2021-05-21] MEDS ORDERED: Albuterol/Ipratropium NEB.SOL (2.5/0.5 MG) 3 ML NEB.SOLN INH PRN (07:40)
[2021-05-21] MEDS: Venlafaxine XR 75 mg PO SCH ×4 (07:53→23:20)
[2021-05-21] MEDS: Nystatin TOP POWDER 15 GM BTL TOPICAL SCH ×4 (07:54→23:19)
[2021-05-21] MEDS ORDERED: niCARdipine 0.1MG/ML IVPREMIX 20 MG/200 ML BAG IV ONE (09:07)
[2021-05-21] MEDS: cefTRIAXone 1 gm/50 mL NS BAG 1 GM/50 ML BAG IVPB SCH (11:09)
[2021-05-21] MEDS: Azithromycin 500 mg/250 ml NS 500 MG/250 ML BAG IVPB SCH (12:11)
[2021-05-21] MEDS ORDERED: OLANzapine 5 mg TAB*ODT PO PRN (12:32)
[2021-05-21] MEDS ORDERED: Warfarin - No Order Today **NOTE FOLLOW UP ONE (17:00)
[2021-05-21] MEDS: Warfarin DAILY REMINDER **NOTE FOLLOW UP SCH (18:08)
[2021-05-22 09:10] LABS: INR 3.53 (0.86-1.15)
[2021-05-22 09:20] LABS: Calcium 9.5 mg/dL (8.6-10.3); EGFR African American 104.1 (>60); Magnesium 1.2 mg/dL (1.9-2.7); Potassium 4.8 mmol/L (3.5-5.0)
[2021-05-22] MEDS ORDERED: Ziprasidone IM 20 mg VIAL 1 ml VIAL IM ONE (11:15)
[2021-05-22] MEDS: Nystatin TOP POWDER 15 GM BTL TOPICAL SCH ×3 (11:49→21:45)
[2021-05-22] MEDS: Venlafaxine XR 75 mg PO SCH ×2 (11:51→21:50)
[2021-05-22] MEDS: Warfarin DAILY REMINDER **NOTE FOLLOW UP SCH (15:44)
[2021-05-22] MEDS ORDERED: Warfarin - No Order Today **NOTE FOLLOW UP ONE (17:00)
[2021-05-23] MEDS ORDERED: LORazepam 2 mg VIAL 1 ml ONE ×2 (01:43→01:48)
[2021-05-23] MEDS ORDERED: Succinylcholine 200 mg VIAL 20 mg/ml 10 ml VIAL (200 mg) ONE (01:43)
[2021-05-23] MEDS ORDERED: Etomidate 40 mg/20 ml (2 MG/ML) 20 ml VIAL (40 mg) ONE (01:43)
[2021-05-23] MEDS ORDERED: Lorazepam PYXIS KEY ONE ×2 (01:45→01:47)
[2021-05-23 01:55] LABS: PO2 Arterial 294 mmHg (80-100)
[2021-05-23] MEDS ORDERED: levETIRAcetam 1000MG IVPREMIX 1,000 MG/100 ML BAG IVPB ONE (01:55)
[2021-05-23] MEDS ORDERED: Lorazepam PYXIS KEY PRN (01:57)
[2021-05-23] MEDS ORDERED: LORazepam 2 mg VIAL 1 ml IV PUSH ONE (01:57)
[2021-05-23 02:07] LABS: PCO2 Arterial 104 mmHg (35-45)
[2021-05-23] MEDS ORDERED: Propofol 10 mg/ml 100 ML BTL 100 ML ONE (02:19)
[2021-05-23] MEDS ORDERED: Magnesium Sulf 4 GM/100 ML IV 4,000 MG/100 ML BAG IVPB ONE (02:29)
[2021-05-23] MEDS ORDERED: Propofol 10 mg/ml 100 ML BTL 100 ML IV SCH (03:00)
[2021-05-23] MEDS ORDERED: NS 0.9% 1000 ml BAG 1,000 ML IV ONE (03:00)
[2021-05-23 03:01] LABS: Hematocrit 37 % (35-47); Hemoglobin 11.4 g/dL (12.0-16.0); Mean Corpuscular HGB Conc 31 g/dL (31-36); Mean Corpuscular Hemoglobin 24 pg (27-31); Mean Corpuscular Volume 77 fL (80-97); Mean Platelet Volume 6.8 fL (7.4-10.4); Platelet Count 411 10^3/uL (150-450); Red Cell Distribution Width 23 % (10-15); White Blood Count 14.6 10^3/uL (3.5-10.8)
[2021-05-23 03:13] LABS: INR 3.61 (0.86-1.15)
[2021-05-23 03:16] LABS: EGFR African American 105.9 (>60); EGFR Non-African American 87.5 (>60); Magnesium 1.2 mg/dL (1.9-2.7); Phosphorus 4.5 mg/dL (2.5-5.0); Potassium 3.6 mmol/L (3.5-5.0)
[2021-05-23] MEDS: cefTRIAXone 1 gm/50 mL NS BAG 1 GM/50 ML BAG IVPB SCH (03:19)
[2021-05-23] MEDS: fentaNYL 100 mcg/2 ml 50 MCG/ML VIAL IV SLOW PU PRN (03:24)
[2021-05-23] MEDS: Pantoprazole VIAL 40 MG VIAL IV SCH (03:24)
[2021-05-23] MEDS: Chlorhexidine MOUTHWASH 0.12% 15 ML UDC SWISH SPIT SCH ×5 (03:24→20:28)
[2021-05-23 03:29] LABS: Urine Appearance Clear; Urine Bilirubin Negative (Negative); Urine Blood Negative (Negative); Urine Color Yellow; Urine Glucose Negative (Negative); Urine Ketones Trace (Negative); Urine Nitrite Negative (Negative); Urine Protein 2+(100 mg/dL) (Negative); Urine Specific Gravity 1.011 (1.002-1.030); Urine Urobilinogen Negative (Negative)
[2021-05-23 03:31] LABS: TSH Ultra Thyroid Stim Horm 7.93 mcIU/mL (0.34-5.60)
[2021-05-23 03:57] LABS: PCO2 Arterial 47 mmHg (35-45); PO2 Arterial 122 mmHg (80-100)
[2021-05-23 04:08] LABS: Urine Bacteria Absent (Absent); Urine Red Blood Cell Trace(0-2/hpf) (Absent); Urine White Blood Cell 1+(6-10/hpf) (Absent)
[2021-05-23] MEDS ORDERED: Potassium Chloride LIQUID 20 MEQ/15 ML LIQUID PO ONE (04:51)
[2021-05-23] MEDS ORDERED: Heparin 5000 UNITS/ML 1 mL VIAL SUBCUT SCH (06:00)
[2021-05-23 08:10] LABS: Hematocrit 34 % (35-47); Hemoglobin 10.5 g/dL (12.0-16.0); Mean Corpuscular HGB Conc 31 g/dL (31-36); Mean Corpuscular Hemoglobin 23 pg (27-31); Mean Corpuscular Volume 77 fL (80-97); Mean Platelet Volume 6.7 fL (7.4-10.4); Platelet Count 369 10^3/uL (150-450); Red Blood Count 4.48 10^6 /uL (3.70-4.87); Red Cell Distribution Width 23 % (10-15); White Blood Count 11.4 10^3/uL (3.5-10.8)
[2021-05-23] MEDS: Propofol 10 mg/ml 100 ML BTL 100 ML IV SCH ×3 (08:10→21:17)
[2021-05-23 08:20] LABS: Magnesium 2.1 mg/dL (1.9-2.7); Potassium 3.5 mmol/L (3.5-5.0)
[2021-05-23 08:38] LABS: INR 3.43 (0.86-1.15)
[2021-05-23 09:22] LABS: EGFR African American 100.7 (>60); EGFR Non-African American 83.2 (>60)
[2021-05-23] MEDS: Venlafaxine XR 75 mg PO SCH ×2 (09:25→20:28)
[2021-05-23] MEDS: Nystatin TOP POWDER 15 GM BTL TOPICAL SCH ×3 (09:26→20:29)
[2021-05-23] MEDS ORDERED: Warfarin - No Order Today **NOTE FOLLOW UP ONE (10:00)
[2021-05-23] MEDS: levETIRAcetam 500 MG IVPREMIX 500 MG/100 ML BAG IV SCH ×2 (10:08→21:18)
[2021-05-23 10:22] LABS: ABS Basophils 0.1 10^3/ul (0-0.2); ABS Eosinophils 0.1 10^3/ul (0-0.6); ABS Lymphocytes 2.2 10^3/ul (1.0-4.8); ABS Monocytes 1.8 10^3/ul (0-0.8); ABS Neutrophils 7.2 10^3/ul (1.5-7.7); Eosinophil % 0.5 %; Lymphocyte % 19.5 %
[2021-05-23] MEDS: Warfarin DAILY REMINDER **NOTE FOLLOW UP SCH (17:29)
[2021-05-23] MEDS: Saline FLUSH-CENTRAL 10 ML SYRINGE CENT\\PICC SCH (20:29)
[2021-05-23] MEDS ORDERED: Lactated Ringers 500 ml BAG 500 ML IV ONE (22:36)
[2021-05-24] MEDS: Chlorhexidine MOUTHWASH 0.12% 15 ML UDC SWISH SPIT SCH ×4 (01:05→12:33)
[2021-05-24] MEDS: Propofol 10 mg/ml 100 ML BTL 100 ML IV SCH ×2 (01:05→04:20)
[2021-05-24] MEDS: Pantoprazole VIAL 40 MG VIAL IV SCH (01:05)
[2021-05-24] MEDS: cefTRIAXone 1 gm/50 mL NS BAG 1 GM/50 ML BAG IVPB SCH (03:12)
[2021-05-24] MEDS: fentaNYL 100 mcg/2 ml 50 MCG/ML VIAL IV SLOW PU PRN (03:15)
[2021-05-24 05:25] LABS: ABS Eosinophils 0.1 10^3/ul (0-0.6); ABS Lymphocytes 1.8 10^3/ul (1.0-4.8); ABS Monocytes 1.1 10^3/ul (0-0.8); ABS Neutrophils 4.2 10^3/ul (1.5-7.7); Eosinophil % 0.7 %; Hematocrit 31 % (35-47); Hemoglobin 9.7 g/dL (12.0-16.0); Lymphocyte % 24.9 %; Mean Corpuscular HGB Conc 31 g/dL (31-36); Mean Corpuscular Hemoglobin 24 pg (27-31); Mean Corpuscular Volume 76 fL (80-97); Mean Platelet Volume 6.9 fL (7.4-10.4); Platelet Count 316 10^3/uL (150-450); Red Blood Count 4.07 10^6 /uL (3.70-4.87); Red Cell Distribution Width 23 % (10-15); White Blood Count 7.2 10^3/uL (3.5-10.8)
[2021-05-24 05:40] LABS: Calcium 8.5 mg/dL (8.6-10.3); EGFR African American 120.3 (>60); EGFR Non-African American 99.4 (>60); Magnesium 1.7 mg/dL (1.9-2.7); Phosphorus 3.3 mg/dL (2.5-5.0); Potassium 3.1 mmol/L (3.5-5.0)
[2021-05-24] MEDS ORDERED: Potassium Chloride LIQUID 20 MEQ/15 ML LIQUID PO ONE (05:42)
[2021-05-24 05:45] LABS: INR 1.99 (0.86-1.15)
[2021-05-24] MEDS: Venlafaxine XR 75 mg PO SCH ×3 (07:46→22:27)
[2021-05-24] MEDS: Nystatin TOP POWDER 15 GM BTL TOPICAL SCH ×3 (07:47→23:29)
[2021-05-24] MEDS: Saline FLUSH-CENTRAL 10 ML SYRINGE CENT\\PICC SCH ×2 (07:47→20:25)
[2021-05-24] MEDS: KCL 10 MEQ/50 ML IVPREMIX 10 MEQ/50 ML BAG IV SCH ×3 (07:47→10:06)
[2021-05-24] MEDS: levETIRAcetam 500 MG IVPREMIX 500 MG/100 ML BAG IV SCH ×2 (09:11→22:27)
[2021-05-24] MEDS: Dexmedetomidine 1,000 MCG in NS 0.9% 250 ml 240 ML IV SCH ×2 (14:25→23:07)
[2021-05-24] MEDS: Warfarin DAILY REMINDER **NOTE FOLLOW UP SCH (17:59)
[2021-05-24] MEDS ORDERED: hydrALAZINE 20 mg/ml 1 ML Vial IV IV SLOW PU ONE (22:04)
[2021-05-25] MEDS: cefTRIAXone 1 gm/50 mL NS BAG 1 GM/50 ML BAG IVPB SCH (04:05)
[2021-05-25 04:35] LABS: INR 1.46 (0.86-1.15)
[2021-05-25 04:36] LABS: ABS Eosinophils 0.1 10^3/ul (0-0.6); ABS Lymphocytes 1.8 10^3/ul (1.0-4.8); ABS Neutrophils 4.5 10^3/ul (1.5-7.7); Eosinophil % 1.1 %; Hematocrit 32 % (35-47); Hemoglobin 9.8 g/dL (12.0-16.0); Lymphocyte % 24.1 %; Mean Corpuscular HGB Conc 31 g/dL (31-36); Mean Corpuscular Hemoglobin 24 pg (27-31); Mean Corpuscular Volume 78 fL (80-97); Mean Platelet Volume 6.9 fL (7.4-10.4); Platelet Count 323 10^3/uL (150-450); Red Blood Count 4.11 10^6 /uL (3.70-4.87); Red Cell Distribution Width 23 % (10-15); White Blood Count 7.4 10^3/uL (3.5-10.8)
[2021-05-25 04:53] LABS: Calcium 8.7 mg/dL (8.6-10.3); EGFR African American 163.5 (>60); EGFR Non-African American 135.1 (>60); Magnesium 1.3 mg/dL (1.9-2.7); Potassium 3.8 mmol/L (3.5-5.0)
[2021-05-25] MEDS ORDERED: Potassium Chloride LIQUID 20 MEQ/15 ML LIQUID PO ONE (05:00)
[2021-05-25] MEDS ORDERED: Magnesium Sulf 4 GM/100 ML IV 4,000 MG/100 ML BAG IVPB ONE (05:00)
[2021-05-25] MEDS ORDERED: hydrALAZINE 20 mg/ml 1 ML Vial IV IV SLOW PU PRN ×2 (05:01→05:03)
[2021-05-25] MEDS: Lansoprazole SUSP ORALSYR 3 MG/ML PO SCH (09:50)
[2021-05-25] MEDS: Venlafaxine XR 75 mg PO SCH ×2 (09:52→21:45)
[2021-05-25] MEDS: Saline FLUSH-CENTRAL 10 ML SYRINGE CENT\\PICC SCH ×2 (09:53→21:43)
[2021-05-25] MEDS: levETIRAcetam 500 MG IVPREMIX 500 MG/100 ML BAG IV SCH ×2 (09:55→21:45)
[2021-05-25] MEDS: Nystatin TOP POWDER 15 GM BTL TOPICAL SCH ×3 (09:55→21:44)
[2021-05-25] MEDS ORDERED: NS 0.9% 500 ml BAG 500 ML IV ONE (13:06)
[2021-05-25 13:50] LABS: PCO2 Arterial 56 mmHg (35-45); PO2 Arterial 68 mmHg (80-100)
[2021-05-25] MEDS: Warfarin DAILY REMINDER **NOTE FOLLOW UP SCH (17:36)
[2021-05-26] MEDS: cefTRIAXone 1 gm/50 mL NS BAG 1 GM/50 ML BAG IVPB SCH (04:02)
[2021-05-26] MEDS: Pantoprazole VIAL 40 MG VIAL IV SCH (05:05)
[2021-05-26 06:06] LABS: ABS Basophils 0.1 10^3/ul (0-0.2); ABS Eosinophils 0.2 10^3/ul (0-0.6); ABS Lymphocytes 1.6 10^3/ul (1.0-4.8); ABS Monocytes 0.9 10^3/ul (0-0.8); ABS Neutrophils 4.6 10^3/ul (1.5-7.7); Eosinophil % 2.7 %; Hematocrit 31 % (35-47); Hemoglobin 9.3 g/dL (12.0-16.0); Lymphocyte % 22.1 %; Mean Corpuscular HGB Conc 30 g/dL (31-36); Mean Corpuscular Hemoglobin 24 pg (27-31); Mean Corpuscular Volume 78 fL (80-97); Mean Platelet Volume 6.9 fL (7.4-10.4); Platelet Count 291 10^3/uL (150-450); Red Blood Count 3.95 10^6 /uL (3.70-4.87); Red Cell Distribution Width 23 % (10-15); White Blood Count 7.3 10^3/uL (3.5-10.8)
[2021-05-26 06:13] LABS: INR 1.8 (0.86-1.15)
[2021-05-26 06:22] LABS: Calcium 8.3 mg/dL (8.6-10.3); EGFR African American 130.3 (>60); EGFR Non-African American 107.7 (>60); Magnesium 1.5 mg/dL (1.9-2.7); Phosphorus 3.1 mg/dL (2.5-5.0); Potassium 3.8 mmol/L (3.5-5.0)
[2021-05-26] MEDS ORDERED: Potassium Chloride LIQUID 20 MEQ/15 ML LIQUID PO ONE (06:28)
[2021-05-26] MEDS ORDERED: Magnesium Sulf 4 GM/100 ML IV 4,000 MG/100 ML BAG IVPB ONE (06:28)
[2021-05-26] MEDS: Saline FLUSH-CENTRAL 10 ML SYRINGE CENT\\PICC SCH ×2 (07:41→22:24)
[2021-05-26] MEDS: Venlafaxine XR 75 mg PO SCH ×2 (09:52→21:48)
[2021-05-26] MEDS: levETIRAcetam 500 MG IVPREMIX 500 MG/100 ML BAG IV SCH ×2 (10:12→22:24)
[2021-05-26] MEDS: Nystatin TOP POWDER 15 GM BTL TOPICAL SCH ×3 (10:14→22:24)
[2021-05-26] MEDS: Lansoprazole SUSP ORALSYR 3 MG/ML PO SCH (10:19)
[2021-05-27] MEDS: cefTRIAXone 1 gm/50 mL NS BAG 1 GM/50 ML BAG IVPB SCH (03:20)
[2021-05-27] MEDS: Saline FLUSH-CENTRAL 10 ML SYRINGE CENT\\PICC SCH ×2 (07:38→21:59)
[2021-05-27] MEDS: Venlafaxine XR 75 mg PO SCH ×2 (11:04→21:58)
[2021-05-27] MEDS: Lansoprazole SUSP ORALSYR 3 MG/ML PO SCH (11:04)
[2021-05-27] MEDS: levETIRAcetam 500 MG IVPREMIX 500 MG/100 ML BAG IV SCH (11:50)
[2021-05-27 12:36] LABS: Anion Gap 6 mmol/L (2-11); Blood Urea Nitrogen 13 mg/dL (6-24); CO2 Carbon Dioxide 33 mmol/L (22-32); Calcium 8.8 mg/dL (8.6-10.3); Chloride 91 mmol/L (101-111); EGFR Non-African American 125.6 (>60); Glucose 136 mg/dL (70-100); Magnesium 1.4 mg/dL (1.9-2.7); Potassium 3.9 mmol/L (3.5-5.0); Sodium 130 mmol/L (135-145)
[2021-05-27 13:03] LABS: % Iron Saturation 7 % (15-55); Iron 28 ug/dL (50-212); Total Iron Binding Capacity 398 mcg/dL (250-450); Transferrin 284 mg/dL (203-362); Unsaturated Iron Binding < 383 ug/dL
[2021-05-27] MEDS: Nystatin TOP POWDER 15 GM BTL TOPICAL SCH ×3 (14:13→21:59)
[2021-05-27] MEDS ORDERED: Magnesium Sulfate 2 gm BAG 2 GM/50 ML BAG IVPB ONE (14:21)
[2021-05-27] MEDS ORDERED: Potassium Chlor 20 meq TAB.ER PO ONE (14:21)
[2021-05-27] MEDS: Enoxaparin 40 MG/0.4 ML SYR SUBCUT SCH (21:57)
[2021-05-28 07:38] LABS: EGFR African American 172.1 (>60); EGFR Non-African American 142.2 (>60); Magnesium 1.5 mg/dL (1.9-2.7); Potassium 4.1 mmol/L (3.5-5.0)
[2021-05-28] MEDS: Nystatin TOP POWDER 15 GM BTL TOPICAL SCH ×3 (09:33→20:55)
[2021-05-28] MEDS: Venlafaxine XR 75 mg PO SCH ×2 (09:33→20:52)
[2021-05-28] MEDS: Lansoprazole SUSP ORALSYR 3 MG/ML PO SCH (09:33)
[2021-05-28] MEDS: Saline FLUSH-CENTRAL 10 ML SYRINGE CENT\\PICC SCH ×2 (09:33→20:55)
[2021-05-28] MEDS: Enoxaparin 40 MG/0.4 ML SYR SUBCUT SCH (20:53)
[2021-05-29 09:14] LABS: Hematocrit 32 % (35-47); Hemoglobin 9.7 g/dL (12.0-16.0); Mean Corpuscular HGB Conc 31 g/dL (31-36); Mean Corpuscular Hemoglobin 24 pg (27-31); Mean Corpuscular Volume 78 fL (80-97); Mean Platelet Volume 7.7 fL (7.4-10.4); Platelet Count 279 10^3/uL (150-450); Red Blood Count 4.06 10^6 /uL (3.70-4.87); Red Cell Distribution Width 23 % (10-15); White Blood Count 6.9 10^3/uL (3.5-10.8)
[2021-05-29] MEDS: Lansoprazole SUSP ORALSYR 3 MG/ML PO SCH (09:28)
[2021-05-29] MEDS: Venlafaxine XR 75 mg PO SCH ×2 (09:30→20:55)
[2021-05-29] MEDS: Saline FLUSH-CENTRAL 10 ML SYRINGE CENT\\PICC SCH ×2 (09:30→20:56)
[2021-05-29] MEDS: Nystatin TOP POWDER 15 GM BTL TOPICAL SCH ×3 (09:30→20:57)
[2021-05-29 09:31] LABS: Calcium 9.1 mg/dL (8.6-10.3); EGFR African American 104.1 (>60)
[2021-05-29 09:52] LABS: ABS Basophils 0.1 10^3/ul (0-0.2); ABS Eosinophils 0.1 10^3/ul (0-0.6); ABS Lymphocytes 1.3 10^3/ul (1.0-4.8); ABS Monocytes 1.2 10^3/ul (0-0.8); ABS Neutrophils 4.3 10^3/ul (1.5-7.7); Eosinophil % 1.2 %; Lymphocyte % 18.6 %; Nucleated Red Blood Cells % 0.1
[2021-05-29] MEDS: Enoxaparin 40 MG/0.4 ML SYR SUBCUT SCH (20:56)
[2021-05-30] MEDS: Nystatin TOP POWDER 15 GM BTL TOPICAL SCH (08:53)
[2021-05-30] MEDS: Venlafaxine XR 75 mg PO SCH (08:54)
[2021-05-30] MEDS: Lansoprazole SUSP ORALSYR 3 MG/ML PO SCH (08:54)
[2021-05-30] MEDS: Saline FLUSH-CENTRAL 10 ML SYRINGE CENT\\PICC SCH (09:35)
[2021-05-30 11:58] VITALS: BP 125/68
[2021-05-30 12:59] LABS: Venous Bicarbonate HCO3 33.2 mmol/L (24-28)
[2021-05-30 13:27] LABS: EGFR Non-African American 97.5 (>60)
== END 2021-05-30 16:15 | disposition home health service (06) | DRG 208 ==
LOC: ED 21:33 → ICU 22:48 → SUATTDRO 05-19 07:59 → ICU 05-20 20:44 → MEDTELE 05-21 15:13 → ICU 05-23 02:04 → MED 05-26 10:51
PROVIDERS: ADMIT Internal Medicine; ATTEND Internal Medicine

== ENCOUNTER 2022-03-02 19:16 | Inpatient (IN) ==
[2022-03-02 20:09] LABS: Hematocrit 32 % (35-47); Hemoglobin 10.2 g/dL (12.0-16.0); Mean Corpuscular HGB Conc 32 g/dL (31-36); Mean Corpuscular Hemoglobin 27 pg (27-31); Mean Corpuscular Volume 83 fL (80-97); Mean Platelet Volume 7.6 fL (7.4-10.4); Platelet Count 302 10^3/uL (150-450); Red Blood Count 3.84 10^6 /uL (3.70-4.87); Red Cell Distribution Width 17 % (10-15); White Blood Count 11.5 10^3/uL (3.5-10.8)
[2022-03-02 20:17] LABS: PCO2 Arterial 73 mmHg (35-45); PO2 Arterial 72 mmHg (80-100)
[2022-03-02 20:24] LABS: Activated Partial Thrombo Time 32.5 seconds (26.0-38.0); INR 1.72 (0.86-1.15)
[2022-03-02 20:45] LABS: Urine Appearance Cloudy; Urine Bilirubin Negative (Negative); Urine Blood Negative (Negative); Urine Color Yellow; Urine Glucose Negative (Negative); Urine Ketones Negative (Negative); Urine Nitrite Negative (Negative); Urine Protein 1+(30 mg/dL) (Negative); Urine Specific Gravity 1.012 (1.002-1.030); Urine Urobilinogen Negative (Negative)
[2022-03-02 20:51] LABS: Albumin 3.5 g/dL (3.2-5.2); Albumin/Globulin Ratio 0.9 (1-3); C Reactive Protein 148.85 mg/L (<8.01); Calcium 9.2 mg/dL (8.6-10.3); Potassium 4.8 mmol/L (3.5-5.0); Total Bilirubin 0.3 mg/dL (0.2-1.0); Total Protein 7.5 g/dL (6.4-8.9); eGFR CKD-EPI 39.3 (>60)
[2022-03-02 21:08] LABS: Urine Bacteria Absent (Absent); Urine Red Blood Cell Trace(0-2/hpf) (Absent); Urine White Blood Cell 3+(>20/hpf) (Absent)
[2022-03-02] MEDS ORDERED: Lactated Ringers 1000 ml BAG 1,000 ML IV ONE (21:16)
[2022-03-02] MEDS ORDERED: Iodixanol (CONTRAST) 320 MG/ML 100 ML SDV IV ONE (21:31)
[2022-03-02 21:47] LABS: ABS Monocytes 1.8 10^3/ul (0-0.8); ABS Neutrophils 8.6 10^3/ul (1.5-7.7); Eosinophil % 0.1 %
[2022-03-02] MEDS ORDERED: Levofloxacin 750 MG IVPREMIX 750 MG/150 ML BAG IVPB ONE (22:00)
[2022-03-02 22:02] LABS: PO2 Arterial 85 mmHg (80-100)
[2022-03-02 22:04] LABS: PCO2 Arterial 75 mmHg (35-45)
[2022-03-02 22:13] LABS: High Sensitivity Troponin 1 Hr 8 pg/mL (<15)
[2022-03-02] MEDS ORDERED: Albuterol HFA INHALER 8 gm MDI INH ONE (22:39)
[2022-03-02] MEDS ORDERED: methylPREDNISolone SOD SUCC 125 mg 2 ML VIAL IV ONE (22:39)
[2022-03-03] MEDS ORDERED: Albuterol/Ipratropium NEB.SOL (2.5/0.5 MG) 3 ML NEB.SOLN INH ONE ×3 (00:45→00:46)
[2022-03-03 01:03] LABS: PCO2 Arterial 70 mmHg (35-45); PO2 Arterial 85 mmHg (80-100)
[2022-03-03] MEDS ORDERED: Ondansetron 4 mg VIAL 2 MG/ML 2 ml VIAL IV PRN (04:34)
[2022-03-03 06:42] LABS: PO2 Arterial 77 mmHg (80-100)
[2022-03-03 06:45] LABS: PCO2 Arterial 74 mmHg (35-45)
[2022-03-03] MEDS ORDERED: Levalbuterol HFA INHALER MDI INH PRN (07:06)
[2022-03-03] MEDS ORDERED: NS 0.9% 1000 ml BAG 1,000 ML IV SCH (07:45)
[2022-03-03] MEDS ORDERED: Mirabegron 25 mg ER TAB (NF) PO SCH (09:00)
[2022-03-03] MEDS ORDERED: MV MN IRON FA CA CARB VIT K PO SCH (09:00)
[2022-03-03] MEDS ORDERED: methylPREDNISolone SOD SUCC 125 mg 2 ML VIAL IV SCH (09:00)
[2022-03-03] MEDS ORDERED: LACTOBACILLUS ACIDOPHILUS 1.5 MG PO SCH (09:00)
[2022-03-03] MEDS ORDERED: [UNRECOGNIZED DRUG - OTHER] PO SCH (09:00)
[2022-03-03] MEDS ORDERED: Calcium (OSCAL) 500 mg TAB PO SCH (09:00)
[2022-03-03] MEDS: Venlafaxine XR 75 mg PO SCH ×2 (09:14→21:03)
[2022-03-03] MEDS: Mometasone/Formoter 200/5 MDI INH SCH (13:04)
[2022-03-03 13:18] LABS: PCO2 Arterial 54 mmHg (35-45); PO2 Arterial 106 mmHg (80-100)
[2022-03-03 13:35] LABS: ABS Lymphocytes 0.5 10^3/ul (1.0-4.8); ABS Monocytes 0.5 10^3/ul (0-0.8); ABS Neutrophils 9.2 10^3/ul (1.5-7.7); Hematocrit 31 % (35-47); Hemoglobin 9.8 g/dL (12.0-16.0); Lymphocyte % 5.3 %; Mean Corpuscular HGB Conc 32 g/dL (31-36); Mean Corpuscular Hemoglobin 27 pg (27-31); Mean Corpuscular Volume 84 fL (80-97); Mean Platelet Volume 7.7 fL (7.4-10.4); Platelet Count 276 10^3/uL (150-450); Red Blood Count 3.66 10^6 /uL (3.70-4.87); Red Cell Distribution Width 17 % (10-15); White Blood Count 10.2 10^3/uL (3.5-10.8)
[2022-03-03 13:46] LABS: Albumin 3.1 g/dL (3.2-5.2); Albumin/Globulin Ratio 0.8 (1-3); Globulin 3.9 g/dL (2-4); Total Bilirubin 0.3 mg/dL (0.2-1.0); eGFR CKD-EPI 62.9 (>60)
[2022-03-03 13:59] LABS: TSH Ultra Thyroid Stim Horm 3.26 mcIU/mL (0.34-5.60)
[2022-03-03] MEDS: methylPREDNISolone SOD SUCC 40 mg/ml 1 ml VIAL IV SCH ×2 (14:01→21:02)
[2022-03-03] MEDS: DOXYcycline 100 MG in NS 0.9% 250 ml 250 ML IVPB SCH (14:01)
[2022-03-03 16:08] LABS: Osmolality Serum 281 mOsm/kg (275-295)
[2022-03-03] MEDS: cefTRIAXone 1 gm/50 mL D5W 1 GM/50 ML BAG IV SCH (16:17)
[2022-03-03 20:25] LABS: High Sensitivity Troponin 1 Hr 5 pg/mL (<15)
[2022-03-03 20:50] LABS: Calcium 8.5 mg/dL (8.6-10.3); Potassium 4.5 mmol/L (3.5-5.0); eGFR CKD-EPI 58.5 (>60)
[2022-03-04] MEDS: DOXYcycline 100 MG in NS 0.9% 250 ml 250 ML IVPB SCH ×2 (00:09→12:46)
[2022-03-04] MEDS: methylPREDNISolone SOD SUCC 40 mg/ml 1 ml VIAL IV SCH ×3 (05:31→21:33)
[2022-03-04] MEDS: Mometasone/Formoter 200/5 MDI INH SCH ×2 (08:32→21:29)
[2022-03-04] MEDS: Venlafaxine XR 75 mg PO SCH ×2 (09:41→21:32)
[2022-03-04] MEDS: Multivitamins/Minerals TAB PO SCH (09:42)
[2022-03-04] MEDS: MIRABEGRON PO SCH (09:45)
[2022-03-04 10:02] LABS: ABS Lymphocytes 0.7 10^3/ul (1.0-4.8); ABS Monocytes 0.5 10^3/ul (0-0.8); ABS Neutrophils 8.4 10^3/ul (1.5-7.7); Hematocrit 31 % (35-47); Hemoglobin 9.8 g/dL (12.0-16.0); Lymphocyte % 7.1 %; Mean Corpuscular HGB Conc 32 g/dL (31-36); Mean Corpuscular Hemoglobin 27 pg (27-31); Mean Corpuscular Volume 84 fL (80-97); Mean Platelet Volume 7.7 fL (7.4-10.4); Platelet Count 305 10^3/uL (150-450); Red Blood Count 3.65 10^6 /uL (3.70-4.87); Red Cell Distribution Width 16 % (10-15); White Blood Count 9.6 10^3/uL (3.5-10.8)
[2022-03-04 10:57] LABS: Calcium 8.7 mg/dL (8.6-10.3); Magnesium 1.3 mg/dL (1.9-2.7); Potassium 4.3 mmol/L (3.5-5.0); eGFR CKD-EPI 89.5 (>60)
[2022-03-04] MEDS ORDERED: Magnesium Sulf 4 GM/100 ML IV 4,000 MG/100 ML BAG IVPB ONE (12:00)
[2022-03-04] MEDS: Albuterol/Ipratropium NEB.SOL (2.5/0.5 MG) 3 ML NEB.SOLN INH SCH ×3 (12:22→19:38)
[2022-03-04] MEDS: cefTRIAXone 1 gm/50 mL D5W 1 GM/50 ML BAG IV SCH (13:54)
[2022-03-05] MEDS: DOXYcycline 100 MG in NS 0.9% 250 ml 250 ML IVPB SCH (00:25)
[2022-03-05] MEDS: methylPREDNISolone SOD SUCC 40 mg/ml 1 ml VIAL IV SCH (05:54)
[2022-03-05] MEDS: Venlafaxine XR 75 mg PO SCH ×2 (07:55→21:24)
[2022-03-05] MEDS: Multivitamins/Minerals TAB PO SCH (07:55)
[2022-03-05] MEDS: MIRABEGRON PO SCH (07:59)
[2022-03-05] MEDS: Mometasone/Formoter 200/5 MDI INH SCH ×2 (07:59→21:06)
[2022-03-05 09:00] LABS: Calcium 8.9 mg/dL (8.6-10.3); Potassium 4.9 mmol/L (3.5-5.0); eGFR CKD-EPI 98.1 (>60)
[2022-03-05] MEDS ORDERED: Calcium (OSCAL) 500 mg TAB PO SCH (09:00)
[2022-03-05 21:59] LABS: Urine Osmo 524 mOsm/kg (150-1150)
[2022-03-06] MEDS: Nystatin TOP POWDER 15 GM BTL TOPICAL SCH ×2 (01:58→09:27)
[2022-03-06 05:45] LABS: Calcium 8.7 mg/dL (8.6-10.3); Magnesium 1.5 mg/dL (1.9-2.7); eGFR CKD-EPI 97.3 (>60)
[2022-03-06] MEDS ORDERED: Magnesium Sulfate IV 3 GM in NS 0.9% 100 ml BAG 100 ML IVPB ONE (06:14)
[2022-03-06] MEDS ORDERED: Magnesium Sulfate 1 GM IV 1 GM/100 ML BAG IV ONE (06:45)
[2022-03-06] MEDS ORDERED: Magnesium Sulfate 2 GM IV (Premix) IVPB ONE (07:15)
[2022-03-06] MEDS: Mometasone/Formoter 200/5 MDI INH SCH (07:43)
[2022-03-06] MEDS: Venlafaxine XR 75 mg PO SCH (09:25)
[2022-03-06] MEDS: Multivitamins/Minerals TAB PO SCH (09:25)
[2022-03-06] MEDS: MIRABEGRON PO SCH (09:26)
[2022-03-06 11:26] VITALS: BP 143/67
== END 2022-03-06 16:30 | disposition home or self-care (01) | DRG 189 ==
LOC: ED 19:16 → SUATTDRO 03-03 04:34 → EDHOLD 03-03 04:34 → ICU 03-03 12:29 → MED 03-04 19:54
PROVIDERS: ADMIT Internal Medicine; ATTEND Internal Medicine

== ENCOUNTER 2022-03-18 17:20 | Inpatient (IN) ==
[2022-03-18] MEDS ORDERED: Lactated Ringers 1000 ml BAG 1,000 ML IV ONE ×3 (17:47→20:16)
[2022-03-18] MEDS ORDERED: Cefepime 2 GM in Dextrose 2 GM/50 ML BAG IV ONE (17:48)
[2022-03-18] MEDS ORDERED: Vancomycin 1,000 MG in NS 0.9% 250 ml 250 ML IVPB ONE (17:49)
[2022-03-18 18:37] LABS: Venous Bicarbonate HCO3 30.1 mmol/L (24-28)
[2022-03-18 18:38] LABS: Hematocrit 32 % (35-47); Hemoglobin 9.9 g/dL (12.0-16.0); Mean Corpuscular HGB Conc 31 g/dL (31-36); Mean Corpuscular Hemoglobin 26 pg (27-31); Mean Corpuscular Volume 84 fL (80-97); Mean Platelet Volume 8.2 fL (7.4-10.4); Platelet Count 266 10^3/uL (150-450); Red Blood Count 3.78 10^6 /uL (3.70-4.87); Red Cell Distribution Width 18 % (10-15)
[2022-03-18 18:58] LABS: High Sens Troponin Baseline 12 pg/mL (<15)
[2022-03-18] MEDS ORDERED: Vancomycin 2,000 MG in NS 0.9% 500 ml BAG 500 ML IVPB ONE (19:00)
[2022-03-18 19:32] LABS: ABS Basophils 0.1 10^3/ul (0-0.2); ABS Lymphocytes 0.8 10^3/ul (1.0-4.8); ABS Monocytes 1.7 10^3/ul (0-0.8); ABS Neutrophils 17.4 10^3/ul (1.5-7.7); Lymphocyte % 3.9 %
[2022-03-18 19:36] LABS: ALT 27 U/L (7-52); Albumin 3.1 g/dL (3.2-5.2); Albumin/Globulin Ratio 0.9 (1-3); Alkaline Phosphatase 54 U/L (35-149); Blood Urea Nitrogen 27 mg/dL (6-24); CO2 Carbon Dioxide 34 mmol/L (22-32); Calcium 9.5 mg/dL (8.6-10.3); Chloride 93 mmol/L (101-111); Globulin 3.5 g/dL (2-4); Glucose 125 mg/dL (70-100); Sodium 132 mmol/L (135-145); Total Protein 6.6 g/dL (6.4-8.9); eGFR CKD-EPI 33.4 (>60)
[2022-03-18 19:46] LABS: Anion Gap 5 mmol/L (2-11)
[2022-03-18 19:52] LABS: High Sensitivity Troponin 1 Hr 15 pg/mL (<15)
[2022-03-18 20:38] LABS: Urine Benzodiazepine Screen None Detected (None Detect); Urine Cannabinoids Screen None Detected (None Detect); Urine Opiates Screen Presumptive Positive (None Detect)
[2022-03-18 20:40] LABS: Urine Appearance Cloudy; Urine Bilirubin Negative (Negative); Urine Blood Negative (Negative); Urine Color Yellow; Urine Glucose Negative (Negative); Urine Ketones Negative (Negative); Urine Nitrite Negative (Negative); Urine Protein 1+(30 mg/dL) (Negative); Urine Specific Gravity 1.013 (1.002-1.030); Urine Urobilinogen Negative (Negative)
[2022-03-18 20:56] LABS: Urine Bacteria Absent (Absent); Urine Red Blood Cell Absent (Absent); Urine White Blood Cell Trace(0-5/hpf) (Absent)
[2022-03-18] MEDS ORDERED: Vancomycin per Pharmacy 1 EA NOTE FOLLOW UP SCH (23:00)
[2022-03-18] MEDS ORDERED: Levalbuterol HFA INHALER MDI INH PRN (23:29)
[2022-03-18 23:48] LABS: PO2 Arterial 86 mmHg (80-100)
[2022-03-19 00:01] LABS: PCO2 Arterial 76 mmHg (35-45)
[2022-03-19] MEDS: Venlafaxine XR 75 mg PO SCH ×3 (00:55→21:00)
[2022-03-19 04:07] LABS: PCO2 Arterial 60 mmHg (35-45); PO2 Arterial 65 mmHg (80-100)
[2022-03-19] MEDS: Cefepime 1 GM in Dextrose 1 GM/50 ML BAG IV SCH ×2 (05:03→17:47)
[2022-03-19 05:58] LABS: Hematocrit 31 % (35-47); Hemoglobin 9.5 g/dL (12.0-16.0); Mean Corpuscular HGB Conc 31 g/dL (31-36); Mean Corpuscular Hemoglobin 26 pg (27-31); Mean Corpuscular Volume 85 fL (80-97); Mean Platelet Volume 7.7 fL (7.4-10.4); Platelet Count 212 10^3/uL (150-450); Red Blood Count 3.66 10^6 /uL (3.70-4.87); Red Cell Distribution Width 18 % (10-15); White Blood Count 20.2 10^3/uL (3.5-10.8)
[2022-03-19] MEDS ORDERED: Vancomycin Random Level NOTE FOLLOW UP ONE (06:00)
[2022-03-19 06:04] LABS: INR 2.16 (0.86-1.15)
[2022-03-19 06:36] LABS: Anisocytosis 1+
[2022-03-19 06:37] LABS: ABS Basophils 0.1 10^3/ul (0-0.2); ABS Lymphocytes 1.1 10^3/ul (1.0-4.8); ABS Monocytes 2.2 10^3/ul (0-0.8); ABS Neutrophils 16.8 10^3/ul (1.5-7.7); Eosinophil % 0.2 %; Lymphocyte % 5.3 %; Polychromasia 1+
[2022-03-19 06:45] LABS: Potassium 4.7 mmol/L (3.5-5.0); Vancomycin Random 12.1 mcg/mL; eGFR CKD-EPI 68.3 (>60)
[2022-03-19] MEDS: Mometasone/Formoter 200/5 MDI INH SCH ×2 (08:06→20:28)
[2022-03-19] MEDS ORDERED: Lactated Ringers 1000 ml BAG 1,000 ML IV SCH (09:00)
[2022-03-19] MEDS: Vancomycin 1,250 MG in NS 0.9% 250 ml 250 ML IVPB SCH ×2 (10:36→21:50)
[2022-03-19] MEDS ORDERED: Iohexol 350 (CONTRAST) 500 ML MDV IV ONE (12:22)
[2022-03-19] MEDS ORDERED: Perflutren Lipid Microsphere 3 ML VIAL ONE (15:42)
[2022-03-19] MEDS: Nystatin TOP POWDER 15 GM BTL TOPICAL SCH ×2 (16:53→20:59)
[2022-03-20] MEDS: Cefepime 1 GM in Dextrose 1 GM/50 ML BAG IV SCH ×2 (05:17→18:23)
[2022-03-20] MEDS: Mometasone/Formoter 200/5 MDI INH SCH ×2 (08:17→19:24)
[2022-03-20] MEDS: Venlafaxine XR 75 mg PO SCH ×2 (08:56→22:41)
[2022-03-20] MEDS: Nystatin TOP POWDER 15 GM BTL TOPICAL SCH ×3 (08:56→22:41)
[2022-03-20] MEDS: Vancomycin 1,250 MG in NS 0.9% 250 ml 250 ML IVPB SCH ×2 (10:08→22:42)
[2022-03-21] MEDS: Cefepime 1 GM in Dextrose 1 GM/50 ML BAG IV SCH (05:38)
[2022-03-21 06:05] LABS: ABS Eosinophils 0.1 10^3/ul (0-0.6); ABS Lymphocytes 1.1 10^3/ul (1.0-4.8); ABS Monocytes 0.9 10^3/ul (0-0.8); ABS Neutrophils 9.8 10^3/ul (1.5-7.7); Hematocrit 32 % (35-47); Lymphocyte % 9.3 %; Mean Corpuscular HGB Conc 32 g/dL (31-36); Mean Corpuscular Hemoglobin 26 pg (27-31); Mean Corpuscular Volume 83 fL (80-97); Mean Platelet Volume 8.3 fL (7.4-10.4); Platelet Count 236 10^3/uL (150-450); Red Cell Distribution Width 17 % (10-15)
[2022-03-21 06:19] LABS: Anion Gap 10 mmol/L (2-11); Blood Urea Nitrogen 8 mg/dL (6-24); CO2 Carbon Dioxide 34 mmol/L (22-32); Calcium 8.5 mg/dL (8.6-10.3); Chloride 89 mmol/L (101-111); Glucose 90 mg/dL (70-100); Potassium 3.5 mmol/L (3.5-5.0); Sodium 133 mmol/L (135-145)
[2022-03-21] MEDS: Nystatin TOP POWDER 15 GM BTL TOPICAL SCH ×3 (07:36→21:03)
[2022-03-21] MEDS: Venlafaxine XR 75 mg PO SCH ×2 (08:15→21:04)
[2022-03-21] MEDS ORDERED: Vancomycin Trough Check NOTE FOLLOW UP ONE (08:30)
[2022-03-21 09:05] LABS: Anaplasma phagocytophilum Negative (Negative); B. miyamotoi PCR, B Negative (Negative); Babesia divergens/MO-1 Negative (Negative); Babesia ducani Negative (Negative); Ehrlichia chaffeensis Negative (Negative); Ehrlichia ewingii/canis Negative (Negative); Ehrlichia muris eauclairensis Negative (Negative)
[2022-03-21 09:21] LABS: Vancomycin Trough 12.6 mcg/mL; eGFR CKD-EPI 99.6 (>60)
[2022-03-21] MEDS: Mometasone/Formoter 200/5 MDI INH SCH ×2 (09:27→19:04)
[2022-03-21] MEDS ORDERED: Ondansetron 4 mg VIAL 2 MG/ML 2 ml VIAL IV PRN (09:39)
[2022-03-21] MEDS ORDERED: Ondansetron 4 mg VIAL 2 MG/ML 2 ml VIAL ONE (09:45)
[2022-03-21 10:54] LABS: Lipase < 10 U/L (11.0-82.0)
[2022-03-21] MEDS: Vancomycin 1,250 MG in NS 0.9% 250 ml 250 ML IVPB SCH ×2 (11:19→21:04)
[2022-03-22 05:06] LABS: ABS Eosinophils 0.1 10^3/ul (0-0.6); ABS Lymphocytes 0.8 10^3/ul (1.0-4.8); ABS Monocytes 0.8 10^3/ul (0-0.8); ABS Neutrophils 4.9 10^3/ul (1.5-7.7); Eosinophil % 1.6 %; Hematocrit 32 % (35-47); Hemoglobin 10.2 g/dL (12.0-16.0); Lymphocyte % 11.9 %; Mean Corpuscular HGB Conc 32 g/dL (31-36); Mean Corpuscular Hemoglobin 27 pg (27-31); Mean Corpuscular Volume 83 fL (80-97); Mean Platelet Volume 8.1 fL (7.4-10.4); Platelet Count 249 10^3/uL (150-450); Red Blood Count 3.83 10^6 /uL (3.70-4.87); Red Cell Distribution Width 17 % (10-15); White Blood Count 6.7 10^3/uL (3.5-10.8)
[2022-03-22 05:26] LABS: Calcium 8.1 mg/dL (8.6-10.3); Potassium 3.3 mmol/L (3.5-5.0)
[2022-03-22] MEDS ORDERED: Potassium Chlor 20 meq TAB.ER PO ONE (07:19)
[2022-03-22] MEDS: Mometasone/Formoter 200/5 MDI INH SCH (07:41)
[2022-03-22] MEDS: Vancomycin 1,250 MG in NS 0.9% 250 ml 250 ML IVPB SCH (08:17)
[2022-03-22] MEDS: Nystatin TOP POWDER 15 GM BTL TOPICAL SCH ×2 (08:18→15:39)
[2022-03-22] MEDS: Venlafaxine XR 75 mg PO SCH (08:19)
[2022-03-22] MEDS ORDERED: Furosemide 20 mg/2 ml IV VIAL IV SCH (10:30)
[2022-03-22 14:48] VITALS: BP 124/78
[2022-03-23] MEDS ORDERED: Vancomycin Trough Check NOTE FOLLOW UP ONE (08:30)
== END 2022-03-22 17:30 | disposition home or self-care (01) | DRG 871 ==
LOC: ED 17:20 → SUATTDRO 23:38 → MED 23:38
PROVIDERS: ADMIT Internal Medicine; ATTEND Hospitalist

== ENCOUNTER 2022-11-03 14:13 | Observation (INO) ==
[2022-11-03] MEDS ORDERED: NS 0.9% 500 ml BAG 500 ML IV ONE (14:30)
[2022-11-03 15:37] LABS: Hematocrit 39 % (35-47); Hemoglobin 11.9 g/dL (12.0-16.0); Mean Corpuscular HGB Conc 31 g/dL (31-36); Mean Corpuscular Hemoglobin 28 pg (27-31); Mean Corpuscular Volume 90 fL (80-97); Mean Platelet Volume 7.8 fL (7.4-10.4); Platelet Count 248 10^3/uL (150-450); Red Cell Distribution Width 25 % (10-15); White Blood Count 10.5 10^3/uL (3.5-10.8)
[2022-11-03 15:59] LABS: PO2 Arterial 106 mmHg (80-100)
[2022-11-03 15:59] LABS: High Sens Troponin Baseline 42 pg/mL (<15)
[2022-11-03 16:03] LABS: PCO2 Arterial 81 mmHg (35-45)
[2022-11-03 16:04] LABS: ALT 11 U/L (7-52); AST 17 U/L (13-39); Albumin 3.2 g/dL (3.2-5.2); Albumin/Globulin Ratio 0.8 (1-3); Alkaline Phosphatase 55 U/L (35-149); Blood Urea Nitrogen 34 mg/dL (6-24); C Reactive Protein 58.24 mg/L (<8.01); Calcium 8.6 mg/dL (8.6-10.3); Chloride 94 mmol/L (101-111); Creatinine, Serum 1.22 mg/dL (0.51-0.95); Globulin 3.8 g/dL (2-4); Glucose 97 mg/dL (70-100); Magnesium 1.8 mg/dL (1.9-2.7); Sodium 136 mmol/L (135-145)
[2022-11-03 16:07] LABS: CO2 Carbon Dioxide 42 mmol/L (22-32); Potassium 5.4 mmol/L (3.5-5.0)
[2022-11-03 16:09] LABS: ABS Eosinophils 0.1 10^3/ul (0-0.6); ABS Lymphocytes 1.4 10^3/ul (1.0-4.8); ABS Monocytes 1.4 10^3/ul (0-0.8); ABS Neutrophils 7.6 10^3/ul (1.5-7.7); Anisocytosis 2+; Eosinophil % 1.1 %; Hypochromasia 2+; Lymphocyte % 12.9 %; Macrocytosis 1+; Microcytosis 1+; Polychromasia 2+
[2022-11-03 16:33] LABS: Urine Appearance Cloudy; Urine Bilirubin Negative (Negative); Urine Blood Negative (Negative); Urine Color Yellow; Urine Glucose Negative (Negative); Urine Ketones Negative (Negative); Urine Nitrite Negative (Negative); Urine Protein 2+(100 mg/dL) (Negative); Urine Specific Gravity 1.017 (1.002-1.030); Urine Urobilinogen Negative (Negative)
[2022-11-03] MEDS ORDERED: Furosemide 40 mg/4 ml IV VIAL IV ONE (16:39)
[2022-11-03] MEDS ORDERED: Levalbuterol HFA INHALER MDI INH PRN (17:18)
[2022-11-03] MEDS ORDERED: Albuterol HFA INHALER 8 gm MDI INH PRN (17:21)
[2022-11-03 17:27] LABS: Urine Bacteria 1+ (Absent); Urine Red Blood Cell 2+(6-10/hpf) (Absent); Urine Squamous Epithelial Cell Present (Absent); Urine White Blood Cell 3+(>20/hpf) (Absent)
[2022-11-03] MEDS ORDERED: Senna TAB 8.6 mg TAB PO PRN (17:33)
[2022-11-03 17:34] LABS: PO2 Arterial 70 mmHg (80-100)
[2022-11-03 17:35] LABS: PCO2 Arterial 73 mmHg (35-45)
[2022-11-03 17:36] LABS: High Sensitivity Troponin 1 Hr 32 pg/mL (<15)
[2022-11-03 20:25] LABS: PO2 Arterial 83 mmHg (80-100)
[2022-11-03 20:26] LABS: PCO2 Arterial 80 mmHg (35-45)
[2022-11-03] MEDS ORDERED: Mometasone/Formoter 200/5 MDI INH SCH (21:00)
[2022-11-03] MEDS: Venlafaxine XR 75 mg PO SCH (22:42)
[2022-11-03] MEDS: Magnesium Hydroxide LIQ 30 ML UDC PO SCH (22:44)
[2022-11-04] MEDS ORDERED: Mometasone/Formoter 200/5 MDI INH SCH (07:00)
[2022-11-04] MEDS ORDERED: NF: Mirabegron 25 mg ER TAB (NF) PO SCH (09:00)
[2022-11-04] MEDS: Venlafaxine XR 75 mg PO SCH ×2 (09:03→21:48)
[2022-11-04] MEDS: Magnesium Hydroxide LIQ 30 ML UDC PO SCH ×2 (09:04→21:48)
[2022-11-04] MEDS: Nystatin TOP POWDER 15 GM BTL TOPICAL SCH ×2 (09:04→21:48)
[2022-11-04 09:32] LABS: Urine Creatinine Concentration 174.96 mg/dL
[2022-11-04 10:05] LABS: Calcium 8.7 mg/dL (8.6-10.3); Creatinine, Serum 0.89 mg/dL (0.51-0.95); Magnesium 1.4 mg/dL (1.9-2.7); Potassium 4.3 mmol/L (3.5-5.0); eGFR CKD-EPI 70.1 (>60)
[2022-11-04] MEDS ORDERED: Magnesium Sulf 4 GM/100 ML IV 4,000 MG/100 ML BAG IVPB ONE (10:53)
[2022-11-04] MEDS ORDERED: Furosemide 40 mg/4 ml IV VIAL IV ONE (10:53)
[2022-11-04] MEDS ORDERED: Levalbuterol HFA INHALER MDI INH PRN (13:35)
[2022-11-04] MEDS ORDERED: Sulfur Hexaflouride MICROSPHR 25 MG VIAL ONE (15:52)
[2022-11-04] MEDS: PTO: Mirabegron 25 mg ER TAB (NF) PO SCH (16:16)
[2022-11-04] MEDS: Mometasone/Formoter 200/5 MDI INH SCH (18:56)
[2022-11-04] MEDS ORDERED: acetaZOLAMIDE IV 500 MG in NS 0.9% 50 ML 50 ML IVPB ONE (21:00)
[2022-11-05 05:59] LABS: Venous Bicarbonate HCO3 39.1 mmol/L (24-28)
[2022-11-05 06:26] LABS: Hematocrit 37 % (35-47); Hemoglobin 11.3 g/dL (12.0-16.0); Mean Corpuscular HGB Conc 31 g/dL (31-36); Mean Corpuscular Hemoglobin 28 pg (27-31); Mean Corpuscular Volume 90 fL (80-97); Platelet Count 231 10^3/uL (150-450); Red Blood Count 4.09 10^6 /uL (3.70-4.87); Red Cell Distribution Width 24 % (10-15); White Blood Count 7.4 10^3/uL (3.5-10.8)
[2022-11-05 06:50] LABS: Calcium 8.7 mg/dL (8.6-10.3); Creatinine, Serum 0.78 mg/dL (0.51-0.95); Magnesium 2.1 mg/dL (1.9-2.7); Phosphorus 4.3 mg/dL (2.5-5.0); Potassium 3.7 mmol/L (3.5-5.0); eGFR CKD-EPI 82.2 (>60)
[2022-11-05 07:01] LABS: ABS Eosinophils 0.1 10^3/ul (0-0.6); ABS Lymphocytes 1.3 10^3/ul (1.0-4.8); ABS Monocytes 1.1 10^3/ul (0-0.8); ABS Neutrophils 4.9 10^3/ul (1.5-7.7); Eosinophil % 1.5 %; Lymphocyte % 17.4 %
[2022-11-05] MEDS: Mometasone/Formoter 200/5 MDI INH SCH ×2 (07:41→19:09)
[2022-11-05] MEDS ORDERED: Furosemide 40 mg/4 ml IV VIAL IV ONE (09:30)
[2022-11-05] MEDS: Venlafaxine XR 75 mg PO SCH (10:18)
[2022-11-05] MEDS: Magnesium Hydroxide LIQ 30 ML UDC PO SCH (10:22)
[2022-11-05] MEDS: Nystatin TOP POWDER 15 GM BTL TOPICAL SCH (10:23)
[2022-11-05] MEDS: PTO: Mirabegron 25 mg ER TAB (NF) PO SCH (10:24)
[2022-11-05 15:46] VITALS: BP 111/57
== END 2022-11-05 18:30 | disposition home or self-care (01) ==
LOC: ED 14:13 → EDHOLD 14:13 → SUATTDRO 17:05 → EDHOLD 20:09 → MED 22:09
PROVIDERS: ADMIT Internal Medicine; ATTEND Internal Medicine

== ENCOUNTER 2023-10-28 11:05 | Inpatient (IN) ==
[2023-10-28] MEDS ORDERED: Lactated Ringers 1000 ml BAG 1,000 ML IV ONE ×3 (11:48→15:10)
[2023-10-28 11:54] LABS: ABS Eosinophils 0.2 10^3/uL (0.0-0.5); ABS Lymphocytes 1.3 10^3/uL (1.0-4.8); ABS Monocytes 1.2 10^3/uL (0.0-0.9); ABS Neutrophils 8.2 10^3/uL (1.5-7.6); ABS Nucleated RBC 0.01 10^3/ul; Eosinophil % 1.9 %; Hemoglobin 12.2 g/dL (11.5-14.3); Lymphocyte % 11.9 %; Mean Corpuscular Hemoglobin 33.4 pg (27-33); Mean Corpuscular Hgb Conc 32.9 g/dL (31-36); Mean Corpuscular Volume 101.2 fL (80-97); Mean Platelet Volume 9.1 fL (7.5-11.2); Nucleated Red Blood Cells % 0.1 %/100WBC (0.0-0.8); Platelet Count 225 10^3/uL (150-450); Red Blood Count 3.66 10^6/uL (3.63-4.92); Red Cell Distribution Width 16.6 % (12-17); White Blood Count 10.9 10^3/uL (3.8-11.8)
[2023-10-28 11:57] LABS: PCO2 Arterial 67 mmHg (35-45); PO2 Arterial 70 mmHg (80-100)
[2023-10-28 12:17] LABS: ALT 18 U/L (7-52); Albumin 3.6 g/dL (3.2-5.2); Albumin/Globulin Ratio 0.9 (1-3); Alkaline Phosphatase 42 U/L (35-149); Blood Urea Nitrogen 45 mg/dL (6-24); C Reactive Protein 103.91 mg/L (<8.01); CO2 Carbon Dioxide 29 mmol/L (22-32); Chloride 96 mmol/L (101-111); Creatinine, Serum 2.66 mg/dL (0.51-0.95); Globulin 3.9 g/dL (2-4); Glucose 102 mg/dL (70-100); Lipase 15 U/L (11.0-82.0); Magnesium 1.6 mg/dL (1.9-2.7); Sodium 132 mmol/L (135-145); Total Bilirubin 0.3 mg/dL (0.2-1.0); Total Protein 7.5 g/dL (6.4-8.9); eGFR CKD-EPI 18.7 (>60)
[2023-10-28 12:18] LABS: High Sens Troponin Baseline 3 pg/mL (<15)
[2023-10-28 12:24] LABS: Anion Gap 7 mmol/L (2-16)
[2023-10-28] MEDS ORDERED: Hydrocortisone INJ 100 MG/2ML 2 ML VIAL IV ONE (12:34)
[2023-10-28 13:08] LABS: Phosphorus 4.4 mg/dL (2.5-5.0)
[2023-10-28 13:13] LABS: Urine Appearance Turbid; Urine Bilirubin Negative (Negative); Urine Blood Negative (Negative); Urine Color Amber; Urine Glucose Negative (Negative); Urine Ketones Negative (Negative); Urine Nitrite Negative (Negative); Urine Protein 2+(100 mg/dL) (Negative); Urine Specific Gravity 1.018 (1.002-1.030); Urine Urobilinogen Negative (Negative)
[2023-10-28 13:23] LABS: Urine Bacteria 1+ (Absent); Urine Red Blood Cell 3+(>10/hpf) (Absent); Urine White Blood Cell 3+(>20/hpf) (Absent)
[2023-10-28] MEDS ORDERED: Senna TAB 8.6 mg TAB PO PRN (13:30)
[2023-10-28] MEDS ORDERED: methylPREDNISolone SOD SUCC 125 mg 2 ML VIAL IV ONE (13:47)
[2023-10-28 13:52] LABS: PCO2 Arterial 65 mmHg (35-45); PO2 Arterial 78 mmHg (80-100)
[2023-10-28] MEDS ORDERED: Albuterol/Ipratropium NEB.SOL (2.5/0.5 MG) 3 ML NEB.SOLN ONE (13:55)
[2023-10-28] MEDS: Albuterol/Ipratropium NEB.SOL (2.5/0.5 MG) 3 ML NEB.SOLN INH SCH ×2 (13:59→23:00)
[2023-10-28] MEDS ORDERED: Azithromycin 500 mg/250 ml NS 500 MG/250 ML BAG IVPB SCH (14:00)
[2023-10-28] MEDS ORDERED: Zosyn per Pharmacy NOTE FOLLOW UP SCH (14:00)
[2023-10-28] MEDS ORDERED: Zosyn 3.375 GM IV - ED ONCE IV ONE (14:00)
[2023-10-28] MEDS ORDERED: Magnesium Sulfate 2 gm BAG 2 GM/50 ML BAG IVPB ONE (14:28)
[2023-10-28] MEDS: Mometasone/Formoter 200/5 MDI INH SCH ×3 (14:57→23:03)
[2023-10-28] MEDS: CMC:Mirabegron 25 mg ER TAB (NF) PO SCH (15:07)
[2023-10-28] MEDS ORDERED: Lactated Ringers 1000 ml BAG 500 ML IV ONE (15:13)
[2023-10-28] MEDS: Magnesium Sulfate IV 1GM/100ML 1 GM/100 ML BAG IV ONE ×2 (17:00→19:03)
[2023-10-28] MEDS: ZOSYN 3.375 GM Q8H per EXTENDED INFUSION IV SCH (19:05)
[2023-10-28] MEDS: Venlafaxine XR 75 mg PO SCH (19:05)
[2023-10-28] MEDS ORDERED: ZOSYN 3.375 GM Q8H per EXTENDED INFUSION IV SCH (19:30)
[2023-10-29] MEDS ORDERED: Lactated Ringers 1000 ml BAG 1,000 ML IV ONE (01:22)
[2023-10-29] MEDS ORDERED: Lactated Ringers 1000 ml BAG 1,000 ML IV SCH (03:00)
[2023-10-29] MEDS: ZOSYN 3.375 GM Q8H per EXTENDED INFUSION IV SCH ×3 (03:23→18:09)
[2023-10-29] MEDS ORDERED: Lactated Ringers 1000 ml BAG 500 ML IV ONE (04:00)
[2023-10-29] MEDS ORDERED: Norepinephrine 4 MG/250mL D5W 4,000 MCG/250 ML BAG IV ONE (04:12)
[2023-10-29 04:41] LABS: ABS Lymphocytes 0.6 10^3/uL (1.0-4.8); ABS Monocytes 0.5 10^3/uL (0.0-0.9); ABS Neutrophils 10.6 10^3/uL (1.5-7.6); ABS Nucleated RBC 0.02 10^3/ul; Hemoglobin 10.8 g/dL (11.5-14.3); Lymphocyte % 5.1 %; Mean Corpuscular Hemoglobin 32.9 pg (27-33); Mean Corpuscular Hgb Conc 32.6 g/dL (31-36); Mean Corpuscular Volume 100.9 fL (80-97); Mean Platelet Volume 8.8 fL (7.5-11.2); Nucleated Red Blood Cells % 0.2 %/100WBC (0.0-0.8); Platelet Count 187 10^3/uL (150-450); Red Blood Count 3.27 10^6/uL (3.63-4.92); Red Cell Distribution Width 16.1 % (12-17); White Blood Count 11.8 10^3/uL (3.8-11.8)
[2023-10-29 04:58] LABS: Calcium 8.2 mg/dL (8.6-10.3); Creatinine, Serum 1.24 mg/dL (0.51-0.95); Magnesium 2.1 mg/dL (1.9-2.7); Potassium 5.2 mmol/L (3.5-5.0); eGFR CKD-EPI 46.8 (>60)
[2023-10-29] MEDS ORDERED: Norepinephrine 4 MG/250mL D5W 4,000 MCG/250 ML BAG IV SCH (05:00)
[2023-10-29] MEDS: Mometasone/Formoter 200/5 MDI INH SCH ×2 (06:55→22:14)
[2023-10-29] MEDS: Albuterol/Ipratropium NEB.SOL (2.5/0.5 MG) 3 ML NEB.SOLN INH SCH ×3 (06:55→22:14)
[2023-10-29] MEDS ORDERED: Dextrose 50% Syringe 50 ml 25 GM/50 ML SYRINGE IV PUSH PRN (07:48)
[2023-10-29] MEDS: methylPREDNISolone SOD SUCC 40 mg/ml 1 ml VIAL IV SCH ×2 (10:23→22:07)
[2023-10-29] MEDS: Venlafaxine XR 75 mg PO SCH ×2 (10:23→22:07)
[2023-10-29] MEDS: CMC:Mirabegron 25 mg ER TAB (NF) PO SCH (10:24)
[2023-10-29] MEDS: Azithromycin 500 mg/250 ml NS 500 MG/250 ML BAG IVPB SCH (15:15)
[2023-10-30] MEDS: ZOSYN 3.375 GM Q8H per EXTENDED INFUSION IV SCH (02:54)
[2023-10-30 06:51] LABS: ABS Monocytes 0.8 10^3/uL (0.0-0.9); ABS Neutrophils 7.8 10^3/uL (1.5-7.6); ABS Nucleated RBC 0.02 10^3/ul; Eosinophil % 0.1 %; Hematocrit 36.6 % (35-45); Hemoglobin 12.1 g/dL (11.5-14.3); Lymphocyte % 10.6 %; Mean Corpuscular Hemoglobin 33.3 pg (27-33); Mean Corpuscular Hgb Conc 33.1 g/dL (31-36); Mean Corpuscular Volume 100.4 fL (80-97); Mean Platelet Volume 8.7 fL (7.5-11.2); Nucleated Red Blood Cells % 0.2 %/100WBC (0.0-0.8); Platelet Count 212 10^3/uL (150-450); Red Blood Count 3.65 10^6/uL (3.63-4.92); Red Cell Distribution Width 16.1 % (12-17); White Blood Count 9.6 10^3/uL (3.8-11.8)
[2023-10-30 07:23] LABS: Calcium 8.8 mg/dL (8.6-10.3); Creatinine, Serum 0.83 mg/dL (0.51-0.95); Magnesium 1.8 mg/dL (1.9-2.7); Potassium 5.1 mmol/L (3.5-5.0); eGFR CKD-EPI 75.8 (>60)
[2023-10-30] MEDS: Albuterol/Ipratropium NEB.SOL (2.5/0.5 MG) 3 ML NEB.SOLN INH SCH ×2 (07:39→14:50)
[2023-10-30] MEDS: Mometasone/Formoter 200/5 MDI INH SCH (07:40)
[2023-10-30] MEDS ORDERED: Nystatin TOP POWDER 15 GM BTL TOPICAL SCH (09:00)
[2023-10-30] MEDS: Venlafaxine XR 75 mg PO SCH (09:42)
[2023-10-30] MEDS: CMC:Mirabegron 25 mg ER TAB (NF) PO SCH (09:42)
[2023-10-30] MEDS: methylPREDNISolone SOD SUCC 40 mg/ml 1 ml VIAL IV SCH (09:43)
[2023-10-30] MEDS ORDERED: cefTRIAXone 2 gm/50 mL D5W 2 GM/50 ML BAG IV SCH (10:00)
[2023-10-30] MEDS ORDERED: Albuterol/Ipratropium NEB.SOL (2.5/0.5 MG) 3 ML NEB.SOLN INH PRN (14:51)
[2023-10-30] MEDS: Azithromycin 500 mg/250 ml NS 500 MG/250 ML BAG IVPB SCH (14:59)
[2023-10-30 17:15] VITALS: BP 154/92
== END 2023-10-30 20:05 | disposition home or self-care (01) | DRG 189 ==
LOC: ED 11:05 → SUATTDRO 13:22 → EDHOLD 13:22 → ICU 16:19 → MED 10-29 20:03
PROVIDERS: ADMIT Surgery Surgical Critical Care; ATTEND Student in an Organized Health Care Education/Training Program

== ENCOUNTER 2024-08-31 00:44 | Inpatient (IN) ==
[2024-08-31 01:47] LABS: ABS Basophils 0.1 10^3/uL (0.0-0.1); ABS Eosinophils 0.1 10^3/uL (0.0-0.5); ABS Monocytes 1.5 10^3/uL (0.0-0.9); ABS Neutrophils 7.7 10^3/uL (1.5-7.6); Hematocrit 39.6 % (35-45); Hemoglobin 13.1 g/dL (11.5-14.3); Lymphocyte % 17.7 %; Mean Corpuscular Hemoglobin 32.5 pg (27-33); Mean Corpuscular Hgb Conc 33.1 g/dL (31-36); Mean Corpuscular Volume 98.1 fL (80-97); Mean Platelet Volume 9.6 fL (7.5-11.2); Platelet Count 245 10^3/uL (150-450); Red Blood Count 4.03 10^6/uL (3.63-4.92); Red Cell Distribution Width 15.6 % (12-17); White Blood Count 11.5 10^3/uL (3.8-11.8)
[2024-08-31] MEDS: NS 0.9% 1000 ml BAG 1,000 ML IV ONE ×2 (02:02→02:32)
[2024-08-31 02:42] LABS: INR 1.87 (0.85-1.14)
[2024-08-31 02:46] LABS: Albumin 4.1 g/dL (3.2-5.2); Albumin/Globulin Ratio 1.1 (1-3); C Reactive Protein 25.44 mg/L (<8.01); Calcium 9.1 mg/dL (8.6-10.3); Creatinine, Serum 4.02 mg/dL (0.51-0.95); Globulin 3.6 g/dL (2-4); Magnesium 1.4 mg/dL (1.9-2.7); Potassium 3.9 mmol/L (3.5-5.0); Total Bilirubin 0.3 mg/dL (0.2-1.0); Total Protein 7.7 g/dL (6.4-8.9); eGFR CKD-EPI 11.3 (>60)
[2024-08-31 03:01] LABS: TSH Ultra Thyroid Stim Horm 11.06 mcIU/mL (0.34-5.60)
[2024-08-31 03:03] LABS: High Sensitivity Troponin 1 Hr 16 pg/mL (<15)
[2024-08-31] MEDS ORDERED: Ondansetron 4 mg VIAL 2 MG/ML 2 ml VIAL IV PRN (03:12)
[2024-08-31 03:45] LABS: Free T3 2.93 pg/mL (2.5-3.9)
[2024-08-31 03:46] LABS: Free T4 1.11 ng/dL (0.61-1.12)
[2024-08-31] MEDS ORDERED: Levalbuterol 1.25 mg/3 mL (NF) 1.25 MG/3 ML NEB.SOLN INH PRN (03:57)
[2024-08-31] MEDS: Magnesium Sulfate 2 gm BAG 2 GM/50 ML BAG IVPB ONE (04:01)
[2024-08-31] MEDS: cefTRIAXone 1 gm/50 mL D5W 1 GM/50 ML BAG IV ONE (05:07)
[2024-08-31] MEDS: NS 0.9% 1000 ml BAG 1,000 ML IV SCH ×2 (05:09→09:54)
[2024-08-31 05:10] LABS: Hematocrit 38.1 % (35-45); Hemoglobin 12.4 g/dL (11.5-14.3); Mean Corpuscular Hemoglobin 32.2 pg (27-33); Mean Corpuscular Hgb Conc 32.5 g/dL (31-36); Mean Corpuscular Volume 98.9 fL (80-97); Mean Platelet Volume 9.3 fL (7.5-11.2); Platelet Count 243 10^3/uL (150-450); Red Blood Count 3.85 10^6/uL (3.63-4.92); Red Cell Distribution Width 15.8 % (12-17)
[2024-08-31 05:11] LABS: Urine Appearance Turbid; Urine Bilirubin Negative (Negative); Urine Blood Trace (Negative); Urine Color Yellow; Urine Glucose Negative (Negative); Urine Ketones Negative (Negative); Urine Nitrite Negative (Negative); Urine Protein 1+ (>=30 mg/dL) (Negative); Urine Specific Gravity 1.025 (1.002-1.030); Urine Urobilinogen Negative (Negative)
[2024-08-31] MEDS: Magnesium Sulfate IV 1GM/100ML 1 GM/100 ML BAG IV ONE (05:11)
[2024-08-31 05:16] LABS: Urine Bacteria 1+ /HPF (Absent); Urine Red Blood Cell 1+(3-5/hpf) /HPF (0-Trace); Urine Squamous Epithelial Cell Present /HPF (Absent); Urine White Blood Cell 3+(>20/hpf) /HPF (0-Trace)
[2024-08-31 05:18] LABS: ABS Basophils 0.1 10^3/uL (0.0-0.1); ABS Eosinophils 0.1 10^3/uL (0.0-0.5); ABS Lymphocytes 2.8 10^3/uL (1.0-4.8); ABS Monocytes 1.7 10^3/uL (0.0-0.9); ABS Neutrophils 7.3 10^3/uL (1.5-7.6); ABS Nucleated RBC 0.02 10^3/ul; Lymphocyte % 23.5 %; Nucleated Red Blood Cells % 0.1 %/100WBC (0.0-0.8)
[2024-08-31 06:09] LABS: PCO2 Arterial 53 mmHg (35-45); PO2 Arterial 75 mmHg (80-100)
[2024-08-31] MEDS: Norepinephrine 4 MG/250mL D5W 4,000 MCG/250 ML BAG IV SCH (07:12)
[2024-08-31 07:22] LABS: Calcium 8.4 mg/dL (8.6-10.3); Creatinine, Serum 3.57 mg/dL (0.51-0.95); Potassium 4.1 mmol/L (3.5-5.0); eGFR CKD-EPI 13.1 (>60)
[2024-08-31] MEDS ORDERED: cefTRIAXone 1 gm/50 mL D5W 1 GM/50 ML BAG IV SCH (08:30)
[2024-08-31] MEDS: Mometasone/Formoter 200/5 MDI INH SCH (08:35)
[2024-08-31] MEDS: Venlafaxine XR 75 mg PO SCH (10:09)
[2024-08-31] MEDS: Mirabegron 25 mg ER TAB (NF) PO SCH (10:10)
[2024-08-31 11:00] LABS: Calcium 8.1 mg/dL (8.6-10.3); Creatinine, Serum 3.29 mg/dL (0.51-0.95); Potassium 3.9 mmol/L (3.5-5.0); eGFR CKD-EPI 14.4 (>60)
[2024-09-01] MEDS: cefTRIAXone 1 gm/50 mL D5W 1 GM/50 ML BAG IV SCH (05:46)
[2024-09-01] MEDS ORDERED: cefTRIAXone 1 gm/50 mL D5W 1 GM/50 ML BAG IV SCH (06:00)
[2024-09-01 06:22] LABS: ABS Eosinophils 0.2 10^3/uL (0.0-0.5); ABS Neutrophils 4.5 10^3/uL (1.5-7.6); Eosinophil % 3.1 %; Hematocrit 34.1 % (35-45); Hemoglobin 11.1 g/dL (11.5-14.3); Lymphocyte % 25.3 %; Mean Corpuscular Hemoglobin 32.2 pg (27-33); Mean Corpuscular Hgb Conc 32.5 g/dL (31-36); Mean Platelet Volume 9.6 fL (7.5-11.2); Platelet Count 198 10^3/uL (150-450); Red Blood Count 3.44 10^6/uL (3.63-4.92); Red Cell Distribution Width 15.5 % (12-17); White Blood Count 7.8 10^3/uL (3.8-11.8)
[2024-09-01 06:42] LABS: Calcium 8.4 mg/dL (8.6-10.3); Creatinine, Serum 1.25 mg/dL (0.51-0.95); Magnesium 1.9 mg/dL (1.9-2.7); Potassium 4.1 mmol/L (3.5-5.0); eGFR CKD-EPI 46.1 (>60)
[2024-09-01] MEDS ORDERED: COVID VAC 24-25 (12+) (Moderna) Syringe 0.5 mL IM ONE (09:00)
[2024-09-02 06:54] LABS: ABS Basophils 0.1 10^3/uL (0.0-0.1); ABS Eosinophils 0.3 10^3/uL (0.0-0.5); ABS Lymphocytes 2.5 10^3/uL (1.0-4.8); ABS Monocytes 0.9 10^3/uL (0.0-0.9); Eosinophil % 3.6 %; Hematocrit 35.8 % (35-45); Hemoglobin 11.5 g/dL (11.5-14.3); Lymphocyte % 31.7 %; Mean Corpuscular Hemoglobin 32.2 pg (27-33); Mean Corpuscular Hgb Conc 32.2 g/dL (31-36); Mean Corpuscular Volume 99.8 fL (80-97); Mean Platelet Volume 9.7 fL (7.5-11.2); Platelet Count 183 10^3/uL (150-450); Red Blood Count 3.58 10^6/uL (3.63-4.92); Red Cell Distribution Width 15.3 % (12-17); White Blood Count 7.8 10^3/uL (3.8-11.8)
[2024-09-02 08:17] LABS: Calcium 9.1 mg/dL (8.6-10.3); Creatinine, Serum 0.76 mg/dL (0.51-0.95); Potassium 4.4 mmol/L (3.5-5.0); eGFR CKD-EPI 83.7 (>60)
[2024-09-02 09:41] VITALS: BP 141/69
== END 2024-09-02 11:50 | disposition home or self-care (01) | DRG 871 ==
LOC: EDHOLD 00:44 → ED 00:44 → SUATTDRO 06:38 → ICU 08:20 → MEDTELE 19:37
PROVIDERS: ADMIT Student in an Organized Health Care Education/Training Program; ATTEND Internal Medicine